=== PATIENT | female | born 1955 | race Caucasian/White ===

== ENCOUNTER 2016-12-04 17:51 | Emergency (ER) | payer OTHER ==
[~2016-12-04] VITALS: Ht 165.1 cm; Wt 96.2 kg
[2016-12-04] MEDS: IV NORMAL SALINE 1,000ML 1,000 ML IV ONE (18:45)
[2016-12-04] MEDS: HYDROmorphone PF 1 MG/ML DISP.SYRIN IV ONE (18:45)
[2016-12-04 18:46] LABS: BASO % 0 % (0-3); EOS % 0 % (0-3); HEMATOCRIT 35.3 % (36.0-47.0); HEMOGLOBIN 11.5 g/dL (12.0-15.5); LYMPH # 0.5 x10^3/uL (1.0-4.8); LYMPH % 6 % (24-48); MEAN CORPUSCULAR HEMOGLOBIN 27 pg (25-35); MEAN CORPUSCULAR HGB CONC 33 g/dL (31-37); MEAN CORPUSCULAR VOLUME 82 fL (79-100); MONO # 0.2 x10^3/uL (0.0-1.1); MONO % 3 % (0-9); NEUT # 6.5 x10^3uL (1.8-7.7); NEUT % 90 % (31-73); PLATELET COUNT 190 x10^3/uL (140-400); RED BLOOD COUNT 4.31 x10^6/uL (3.50-5.40); RED CELL DISTRIBUTION WIDTH 14.4 % (11.5-14.5); WHITE BLOOD COUNT 7.2 x10^3/uL (4.0-11.0)
[2016-12-04] MEDS ORDERED: ONDA8TAB12 PO ×2 (18:49→19:31)
--- NOTE | 2016-12-04 18:51 | PHYS DOC ---
Adult General Chief Complaint Chief Complaint: NAUSEA/VOMITING/DIARRHEA HPI HPI 61-year-old female with a history of hypertension, high cholesterol, chronic renal insufficiency, [facility] but signed out today because they refused to give her her chronic pain control of morphine which he takes daily. She was having narcotic withdrawal symptoms of nausea and vomiting so she left the hospital and came here for evaluation and to find someone that was willing to treat her pain. This chest pain shortness of breath. Patient denies abdominal pain. She states her diarrhea is improved but she still has some nausea and vomiting.No active vomiting on arrival in ED. Patient no acute distress alert communicative and appropriate. Review of Systems Review of Systems Constitutional: Denies fever or chills [] Eyes: Denies change in visual acuity, redness, or eye pain [] HENT: Denies nasal congestion or sore throat [] Respiratory: Denies cough or shortness of breath [] Cardiovascular: No additional information not addressed in HPI [] GI: Denies abdominal pain, nausea, vomiting, bloody stools or diarrhea [] : Denies dysuria or hematuria [] Musculoskeletal: Denies back pain or joint pain [] Integument: Denies rash or skin lesions [] Neurologic: Denies headache, focal weakness or sensory changes [] Endocrine: Denies polyuria or polydipsia [] Current Medications Current Medications Current Medications Medications (Trade) Dose Ordered Sig/Diana Start Time Stop Time Status Last Admin Dose Admin Sodium Chloride 1,000 ml @ 1,000 mls/hr 1X ONCE 12/04/16 18:45 12/04/16 19:44 UNV Physical Exam Physical Exam Alert well-appearing no acute distress. Patient had some nausea and was spitting in a bucket in triage however on arrival in the room she has no active nausea or evidence of vomiting. She is comfortable appearing and easily conversant , mildly dry mucous membranes, vital signs unremarkable Constitutional: Well developed, well nourished, no acute distress, non-toxic appearance. [] HENT: Normocephalic, atraumatic, bilateral external ears normal, , no oral exudates, nose normal. [] Eyes: PERRLA, EOMI, conjunctiva normal, no discharge. [] Neck: Normal range of motion, no tenderness, supple, no stridor. [] Cardiovascular:Heart rate regular rhythm, no murmur [] Lungs & Thorax: Bilateral breath sounds clear to auscultation [] Abdomen: Bowel sounds normal, soft, no tenderness, no masses, no pulsatile masses. [] Skin: Warm, dry, no erythema, no rash. [] Back: No tenderness, no CVA tenderness. [] Extremities: No tenderness, no cyanosis, no clubbing, ROM intact, no edema. [] Neurologic: Alert and oriented X 3, normal motor function, normal sensory function, no focal deficits noted. [] Psychologic: Affect normal, judgement normal, mood normal. [] Current Patient Data Lab Results Laboratory Tests Test 12/04/16 18:15 12/04/16 18:25 12/04/16 18:34 White Blood Count 7.2 x10^3/uL (4.0-11.0) Red Blood Count 4.31 x10^6/uL (3.50-5.40) Hemoglobin 11.5 g/dL (12.0-15.5) L Hematocrit 35.3 % (36.0-47.0) L Mean Corpuscular Volume 82 fL (79-100) Mean Corpuscular Hemoglobin 27 pg (25-35) Mean Corpuscular Hemoglobin Concent 33 g/dL (31-37) Red Cell Distribution Width 14.4 % (11.5-14.5) Platelet Count 190 x10^3/uL (140-400) Neutrophils (%) (Auto) 90 % (31-73) H Lymphocytes (%) (Auto) 6 % (24-48) L Monocytes (%) (Auto) 3 % (0-9) Eosinophils (%) (Auto) 0 % (0-3) Basophils (%) (Auto) 0 % (0-3) Neutrophils # (Auto) 6.5 x10^3uL (1.8-7.7) Lymphocytes # (Auto) 0.5 x10^3/uL (1.0-4.8) L Monocytes # (Auto) 0.2 x10^3/uL (0.0-1.1) Eosinophils # (Auto) 0.0 x10^3/uL (0.0-0.7) Basophils # (Auto) 0.0 x10^3/uL (0.0-0.2) Sodium Level 141 mmol/L (136-145) Potassium Level 4.0 mmol/L (3.5-5.1) Chloride Level 104 mmol/L (98-107) Carbon Dioxide Level 23 mmol/L (21-32) Anion Gap 14 (6-14) 19 mmol/L (6-14) H Blood Urea Nitrogen 16 mg/dL (7-20) Creatinine 1.3 mg/dL (0.6-1.0) H Estimated GFR (Cockcroft-Gault) 41.8 BUN/Creatinine Ratio 12 (6-20) Glucose Level 165 mg/dL (70-99) H 160 mg/dL (60-99) H Calcium Level 9.1 mg/dL (8.5-10.1) Total Bilirubin 0.5 mg/dL (0.2-1.0) Aspartate Amino Transferase (AST) 18 U/L (15-37) Alanine Aminotransferase (ALT) 20 U/L (14-59) Alkaline Phosphatase 109 U/L (46-116) Total Protein 7.1 g/dL (6.4-8.2) Albumin 3.3 g/dL (3.4-5.0) L Albumin/Globulin Ratio 0.9 (1.0-1.7) L Lipase 67 U/L (73-393) L Urine Collection Type Unknown Urine Color Yellow Urine Clarity Clear Urine pH 5.0 Urine Specific [place] 1.010 Urine Protein Neg (NEG-TRACE) Urine Glucose (UA) Neg mg/dL (NEG) Urine Ketones (Stick) 15 mg/dL (NEG) Urine Blood Small (NEG) Urine Nitrite Neg (NEG) Urine Bilirubin Neg (NEG) Urine Urobilinogen Dipstick 0.2 mg/dL (0.2 mg/dL) Urine Leukocyte Esterase Neg (NEG) Urine RBC Rare /HPF (0-2) Urine WBC Occ /HPF (0-4) Urine Squamous Epithelial Cells Occ /LPF Urine Bacteria 0 /HPF (0-FEW) POC Hemoglobin 11.9 gm/dL POC Hematocrit 35 % POC Sodium 141 mmol/L (135-145) POC Potassium 4.0 mmol/L (3.5-5.0) POC Chloride 106 mmol/L (98-110) POC Total CO2 20 mmol/L (23-32) L POC Blood Urea Nitrogen 16 mg/dL (8-26) POC Creatinine 0.9 mg/dL (0.5-1.4) POC Ionized Calcium (Carol) 1.12 mmol/L (1.13-1.32) L EKG EKG Normal sinus rhythm at 88 normal axis, no stemi Radiology/Procedures Radiology/Procedures [] Course & Med Decision Making Course & Med Decision Making Well-appearing patient with unremarkable vital signs complaining of narcotic withdrawal. No active vomiting. Benign abdomen. She has mildly dry mucous membranes but is otherwise well-appearing. Fluids initiated and labs pending to rule out significant electrolyte abnormality or need for admission. Dose of 1/2 mg Dilaudid administered. Discussed with patient if workup is unremarkable outpatient management is appropriate and she can assume her morphine prescription for chronic pain control at home and follow-up with her doctor tomorrow. If no indication for admission exists patient is comfortable with this plan, agrees with outpatient follow-up and strict return precautions will be given. At [address] Woo to follow results and dispo pt. Pertinent Labs and Imaging studies reviewed. (See chart for details) []patient pain and nausea improved. He is fluids are in vital signs been reviewed as well as laboratory work and symptoms. No renal insufficiency potassium is normal sodium is normal at this point in time is 7:27 PM patient Carrie to go home. She'll be given some pain medications to follow-up with her regular doctor she understands the possibility that she may be withdrawing from narcotic medications will follow up appropriately with the doctor try to ease herself off these medications in order to help with her withdrawal symptoms. Impression: Narcotic withdrawal, nausea and vomiting resolved dehydration improved disposition PCP follow-up next 12-24 hours if symptoms continue. Dragon Disclaimer Dragon Disclaimer This chart was dictated in whole or in part using Voice Recognition software in a busy, high-work load, and often noisy Emergency Department environment. It may contain unintended and wholly unrecognized errors or omissions. Departure Departure: Impression: Primary Impression: Narcotic withdrawal Additional Impression: Mild dehydration Disposition: HOME, SELF-CARE Condition: STABLE Referrals: JOANN BENITO APRN (PCP) Scripts Ondansetron (ZOFRAN ODT) 8 Mg Tab.rapdis 4 MG PO TID for 7 Days Prov: LORETA WHITLOCK MD 12/04/16 Clonidine Hcl (CLONIDINE HCL) 0.1 Mg Tablet 0.1 MG PO [id number] for 7 Days, #21 TAB Prov: LORETA WHITLOCK MD 12/04/16 Ondansetron (ZOFRAN ODT) 8 Mg Tab.rapdis 4 MG PO QID Y for NAUSEA, #20 Prov: REGIS MI MD 12/04/16 Problem Qualifiers REGIS MI MD Dec 04, 2016 18:51 LORETA WHITLOCK MD Dec 04, 2016 19:31
[2016-12-04 18:53] LABS: ALBUMIN 3.3 g/dL (3.4-5.0); ALBUMIN/GLOBULIN RATIO 0.9 (1.0-1.7); CALCIUM 9.1 mg/dL (8.5-10.1); CREATININE 1.3 mg/dL (0.6-1.0); GFR 41.8; TOTAL BILIRUBIN 0.5 mg/dL (0.2-1.0); TOTAL PROTEIN 7.1 g/dL (6.4-8.2)
[2016-12-04 18:54] LABS: HEMOGLOBIN ISTAT 11.9 gm/dL
[2016-12-04 19:03] LABS: BACTERIA,URINE 0 /HPF (0-FEW); BILIRUBIN,URINE NEG (NEG); CLARITY,URINE CLEAR; COLOR,URINE YELLOW; GLUCOSE,URINE NEG (NEG); NITRITE,URINE NEG (NEG); RBC,URINE RARE /HPF (0-2); SQUAMOUS EPITHELIAL CELL,UR OCC /LPF; UROBILINOGEN,URINE 0.2 mg/dL (0.2 mg/dL); WBC,URINE OCC /HPF (0-4)
--- NOTE | 2016-12-04 19:05 | EKG ---
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
[2016-12-04] MEDS ORDERED: ONDANSETRON PF 4 MG/2 ML VIAL. ONE (19:07)
[2016-12-04] MEDS ORDERED: CLON0.1T PO (19:31)
[2016-12-04 19:35] VITALS: BP 136/60
[2016-12-04] MEDS: ONDANSETRON 4MG ODT 4TABLET STARTPACK. PO ONE (19:45)
[2016-12-04] MEDS: ONDANSETRON PF 4 MG/2 ML VIAL. IV ONE (19:53)
== END 2016-12-04 19:45 | disposition home or self-care (01) ==
LOC: ER 17:51
DX: F11.23 Opioid dependence with withdrawal (principal); E86.0 Dehydration; I12.9 Hypertensive chronic kidney disease with stage 1 through stage 4 chronic kidney disease, or unspecified chronic kidney disease; E78.00 Pure hypercholesterolemia, unspecified; N19 Unspecified kidney failure
CPT/HCPCS: 36415; 80053; 81001; 83690; 85027; 93005; 96361; 96374; 96375; 99285; J1170; J2405; Q0162; 80047; J7030

== ENCOUNTER → 2016-12-20 | Outpatient (CLI) | payer OTHER ==
[2016-12-04 19:35] VITALS: BP 136/60
[~2016-12-20] MED LIST: CLON0.1T PO; ONDA8TAB12 PO
--- NOTE | 2016-12-20 17:39 | RAD ---
DATE: 12/20/2016 EXAM: DIGITAL DIAGNOSTIC BILATERAL, BREAST BILATERAL, BILATERAL BREAST ULTRASOUND HISTORY: Bilateral palpable abnormalities. COMPARISON: Mammogram 10/08/2015 This study was interpreted with the benefit of Computerized Aided Detection (CAD). The breast parenchyma shows scattered fibroglandular densities. Breast parenchyma level B. FINDINGS: Right breast: Palpable abnormalities are indicated in the upper outer right breast as well as the lower inner right breast, marked by metallic markers. In these regions, there are no corresponding areas of suspicious calcifications, masses or architectural distortion. Left breast: Palpable markers are identified in the upper inner left breast as well as the lower inner left breast. There are no corresponding areas of suspicious catheter stations, masses or architectural distortion. Sonographic imaging was performed in the areas of palpable abnormalities as indicated by the wrapper leaf inspector. Ultrasound examination was performed in the right breast at 12 o'clock, 7 cm from the nipple, in the right breast at 4 o'clock, 4 cm from the nipple, in the left breast at 2 o'clock, 10 cm from the nipple and in the left breast at 7 o'clock, 5 cm from the nipple. Scattered fibroglandular tissue noted within these areas. No suspicious masses or areas of architectural distortion are identified by ultrasound. IMPRESSION: Right breast: Palpable abnormalities in the right breast have no specific mammographic or sonographic correlate and likely represent scattered fibroglandular tissue. Please note a negative mammogram and ultrasound do not preclude the need for additional imaging should the patient's symptoms change. Left breast: Palpable abnormalities in the left breast and a suspicious mammographic or sonographic correlate and likely represent scattered fibroglandular tissue. BI-RADS CATEGORY: 2 BENIGN FINDING(S) RECOMMENDED FOLLOW-UP: 12M 12 MONTH FOLLOW-UP PQRS compliance statement: Patient information was entered into a reminder system with a target due date 12/20/2017 for the next mammogram. Mammography is a sensitive method for finding small breast cancers, but it does not detect them all and is not a substitute for careful clinical examination. A negative mammogram does not negate a clinically suspicious finding and should not result in delay in biopsying a clinically suspicious abnormality. "Our facility is accredited by the [employer] Mammography Program."
== END | disposition home or self-care (01) ==
LOC: MAMMO 09:23
PROVIDERS: ATTEND Nurse Practitioner
DX: N63 Unspecified lump in breast (principal)
CPT/HCPCS: 76641; G0204; 77066

== ENCOUNTER 2018-04-20 01:18 | Inpatient (IN) | payer OTHER ==
[~2018-04-20] VITALS: Ht 162.6 cm; Wt 90.7 kg
[2018-04-20] MEDS ORDERED: HALOPERIDOL LACT 5 MG/ML VIAL. ONE (02:02)
[2018-04-20] MEDS ORDERED: diphenhydrAMINE 50 MG/ML VIAL ONE (02:02)
[2018-04-20] MEDS ORDERED: ONDANSETRON PF 4 MG/2 ML VIAL. ONE (02:02)
--- NOTE | 2018-04-20 02:17 | PHYS DOC ---
Adult General Chief Complaint Chief Complaint vomiting HPI HPI This is 62 years old female was seen earlier today at the [facility] who presented with nausea vomiting diarrhea and abdominal pain she had blood work done and CT scan of the abdomen, chest x-ray all reported negative . patient with IV fluids and Zofran . stated that she spent 8 hours and at emergency department he felt very frustrated left and came to Upon arrival patient complaining of nausea vomiting and diarrhea she describes her diarrhea as watery loose stool no blood no black stool no urgency no frequency no hematuria she denies shortness of breath or chest pain Patient has been stated that she hasn't had narcotics in 48 hours because she gets vomiting and she is unable to give it down Review of Systems Review of Systems Constitutional: Denies fever or chills [] Eyes: Denies change in visual acuity, redness, or eye pain [] HENT: Denies nasal congestion or sore throat [] Respiratory: Denies cough or shortness of breath [] Cardiovascular: No additional information not addressed in HPI [] GI: + abdominal pain, nausea, vomiting, bloody stools or diarrhea [] : Denies dysuria or hematuria [] Musculoskeletal: Denies back pain or joint pain [] Integument: Denies rash or skin lesions [] Neurologic: Denies headache, focal weakness or sensory changes [] Endocrine: Denies polyuria or polydipsia [] All other systems were reviewed and found to be within normal limits, except as documented in this note. Current Medications Current Medications Current Medications Medications (Trade) Dose Ordered Sig/Diana Start Time Stop Time Status Last Admin Dose Admin Acetaminophen (Tylenol) 650 mg PRN Q4HRS PRN 04/20/18 04:15 04/21/18 04:14 Diphenhydramine HCl (Benadryl) 50 mg STK-MED ONCE 04/20/18 02:02 04/20/18 02:03 DC Haloperidol Lactate (Haldol) 5 mg STK-MED ONCE 04/20/18 02:02 04/20/18 02:03 DC Hydromorphone HCl (Dilaudid) 0.5 mg PRN Q2HR PRN 04/20/18 04:15 04/21/18 04:14 Ketorolac Tromethamine (Toradol 30mg Vial) 30 mg 1X ONCE 04/20/18 02:30 04/20/18 02:31 DC 04/20/18 02:28 30 MG Morphine Sulfate (Morphine 4mg Syringe) 4 mg 1X ONCE 04/20/18 03:00 04/20/18 03:01 DC 04/20/18 02:52 4 MG Ondansetron HCl (Zofran) 4 mg PRN Q4HRS PRN 04/20/18 04:15 04/21/18 04:14 Sodium Chloride 1,000 ml @ 150 mls/hr Q6H40M 04/20/18 05:00 04/21/18 04:59 Allergies Allergies Allergies Coded Allergies Type Severity Reaction Last Updated Verified No Known Drug Allergies 12/04/16 No Physical Exam Physical Exam Constitutional: Well developed, well nourished, no acute distress, non-toxic appearance. [] HENT: Normocephalic, atraumatic, bilateral external ears normal, oropharynx moist, no oral exudates, nose normal. [] Eyes: PERRLA, EOMI, conjunctiva normal, no discharge. [] Neck: Normal range of motion, no tenderness, supple, no stridor. [] Cardiovascular:Heart rate regular rhythm, no murmur [] Lungs & Thorax: Bilateral breath sounds clear to auscultation [] Abdomen: Bowel sounds normal, soft,+ tenderness, no masses, no pulsatile masses. [] Skin: Warm, dry, no erythema, no rash. [] Back: No tenderness, no CVA tenderness. [] Extremities: No tenderness, no cyanosis, no clubbing, ROM intact, no edema. [] Neurologic: Alert and oriented X 3, normal motor function, normal sensory function, no focal deficits noted. [] Psychologic: Affect normal, judgement normal, mood normal. [] Current Patient Data Vital Signs Vital Signs Date Time Temp Pulse Resp B/P (MAP) Pulse Ox O2 Delivery O2 Flow Rate FiO2 04/20/18 02:52 22 96 Room Air 04/20/18 01:51 98.9 107 Lab Results Laboratory Tests Test 04/20/18 02:15 White Blood Count 11.9 x10^3/uL (4.0-11.0) H Red Blood Count 5.38 x10^6/uL (3.50-5.40) Hemoglobin 14.1 g/dL (12.0-15.5) Hematocrit 43.2 % (36.0-47.0) Mean Corpuscular Volume 80 fL (79-100) Mean Corpuscular Hemoglobin 26 pg (25-35) Mean Corpuscular Hemoglobin Concent 33 g/dL (31-37) Red Cell Distribution Width 16.3 % (11.5-14.5) H Platelet Count 295 x10^3/uL (140-400) Sodium Level 139 mmol/L (136-145) Potassium Level 5.0 mmol/L (3.5-5.1) Chloride Level 103 mmol/L (98-107) Carbon Dioxide Level 18 mmol/L (21-32) L Anion Gap 18 (6-14) H Blood Urea Nitrogen 14 mg/dL (7-20) Creatinine 1.0 mg/dL (0.6-1.0) Estimated GFR (Cockcroft-Gault) 56.4 BUN/Creatinine Ratio 14 (6-20) Glucose Level 189 mg/dL (70-99) H Lactic Acid Level 3.1 mmol/L (0.4-2.0) H Calcium Level 9.0 mg/dL (8.5-10.1) Total Bilirubin 0.6 mg/dL (0.2-1.0) Aspartate Amino Transferase (AST) 33 U/L (15-37) Alanine Aminotransferase (ALT) 25 U/L (14-59) Alkaline Phosphatase 102 U/L (46-116) Total Protein 7.5 g/dL (6.4-8.2) Albumin 3.6 g/dL (3.4-5.0) Albumin/Globulin Ratio 0.9 (1.0-1.7) L Lipase 54 U/L (73-393) L EKG EKG [] Radiology/Procedures Radiology/Procedures [] Impressions: CT scan of the abdomen and pelvis done at the [facility] reported negative Chest x-ray reported negative Course & Med Decision Making Course & Med Decision Making Pertinent Labs and Imaging studies reviewed. (See chart for details) [] Final Impression Final Impression Case discussed with hospitalist on-call Dr. Lewis Patient to be admitted for observation[] Problems: (1) Vomiting Qualifiers: Qualified Codes: R11.2 - Nausea with vomiting, unspecified (2) Gastroenteritis Dragon Disclaimer Dragon Disclaimer This electronic medical record was generated, in whole or in part, using a voice recognition dictation system. JONY MARTINEZ MD Apr 20, 2018 02:17
[2018-04-20 02:29] LABS: HEMATOCRIT 43.2 % (36.0-47.0); HEMOGLOBIN 14.1 g/dL (12.0-15.5); RED BLOOD COUNT 5.38 x10^6/uL (3.50-5.40); RED CELL DISTRIBUTION WIDTH 16.3 % (11.5-14.5); WHITE BLOOD COUNT 11.9 x10^3/uL (4.0-11.0)
[2018-04-20] MEDS ORDERED: ONDANSETRON PF 4 MG/2 ML VIAL. IV ONE (02:30)
[2018-04-20] MEDS ORDERED: diphenhydrAMINE 50 MG/ML VIAL IVP ONE (02:30)
[2018-04-20] MEDS ORDERED: KETOROLAC 30 MG/ML VIAL. IV ONE (02:30)
[2018-04-20] MEDS ORDERED: IV NORMAL SALINE 1,000ML 1,000 ML IV ONE ×2 (02:30)
[2018-04-20] MEDS ORDERED: HALOPERIDOL LACT 5 MG/ML VIAL. IVP ONE (02:30)
[2018-04-20 02:45] LABS: ALBUMIN 3.6 g/dL (3.4-5.0); ALBUMIN/GLOBULIN RATIO 0.9 (1.0-1.7); GFR 56.4; TOTAL BILIRUBIN 0.6 mg/dL (0.2-1.0); TOTAL PROTEIN 7.5 g/dL (6.4-8.2)
[2018-04-20] MEDS ORDERED: MORPHINE SULFATE 4 MG/ML DISP.SYRIN. IV ONE (03:00)
[2018-04-20] MEDS ORDERED: HYDROmorphone PF 1 MG/ML DISP.SYRIN IV PRN (04:15)
[2018-04-20] MEDS ORDERED: ACETAMINOPHEN 325 MG TABLET PO PRN (04:15)
[2018-04-20] MEDS: IV NORMAL SALINE 1,000ML 1,000 ML IV SCH ×3 (04:49→20:17)
--- NOTE | 2018-04-20 04:59 | EKG ---
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
[2018-04-20] MEDS ORDERED: PROCHLORPERAZINE 10 MG/2 ML VIAL. IV ONE (05:00)
[2018-04-20] MEDS ORDERED: LIDO:MAALOX 1:1 20 ML SINGLE DOSE. PO ONE (05:00)
[2018-04-20 05:53] LABS: CLARITY,URINE CLEAR; COLOR,URINE YELLOW
[2018-04-20 05:54] LABS: BACTERIA,URINE 0 /HPF (0-FEW); BILIRUBIN,URINE NEG (NEG); GLUCOSE,URINE NEG (NEG); NITRITE,URINE NEG (NEG); RBC,URINE OCC /HPF (0-2); SQUAMOUS EPITHELIAL CELL,UR OCC /LPF; UROBILINOGEN,URINE 0.2 mg/dL (0.2 mg/dL); WBC,URINE RARE /HPF (0-4)
[2018-04-20 06:00] VITALS: BP 175/95
[2018-04-20] MEDS: ONDANSETRON PF 4 MG/2 ML VIAL. IV PRN ×2 (06:04→09:03)
[2018-04-20] MEDS ORDERED: FURO40TA4 PO (06:37)
[2018-04-20] MEDS ORDERED: FLUO40CA2 PO (06:37)
[2018-04-20] MEDS ORDERED: FERR325T14 PO (06:37)
[2018-04-20] MEDS ORDERED: AMLO5TAB7 PO (06:37)
[2018-04-20] MEDS ORDERED: LEVO75TA5 PO (06:37)
[2018-04-20] MEDS ORDERED: KETO5DRO4 EACHEYE (06:37)
[2018-04-20] MEDS ORDERED: FLUT16SP21 NS (06:37)
[2018-04-20] MEDS ORDERED: CLON0.1T PO (06:37)
[2018-04-20] MEDS ORDERED: OXYB5TAB7 PO (06:37)
[2018-04-20] MEDS ORDERED: MIRT30TA PO (06:37)
[2018-04-20] MEDS ORDERED: ASPI-612 PO (06:37)
[2018-04-20] MEDS ORDERED: SUMA50TA3 PO (06:37)
[2018-04-20] MEDS ORDERED: BUDE10.2 IH (06:37)
[2018-04-20] MEDS ORDERED: LACT1CAP21 PO (06:37)
[2018-04-20] MEDS ORDERED: MORP30TA PO (06:37)
[2018-04-20] MEDS ORDERED: FOLI1TAB16 PO (06:37)
[2018-04-20] MEDS ORDERED: ESTR0.62 PO (06:37)
[2018-04-20] MEDS ORDERED: CHOL500016 PO (06:41)
[2018-04-20] MEDS ORDERED: PANT40TA5 PO (06:41)
[2018-04-20] MEDS ORDERED: GABA-586 PO (06:41)
[2018-04-20] MEDS ORDERED: SIMV20TA3 PO (06:41)
[2018-04-20] MEDS ORDERED: ALBU8.5H8 INH (07:36)
[2018-04-20] MEDS ORDERED: PHEN1SUP75 RC (07:36)
[2018-04-20 10:41] VITALS: BP 187/74
[2018-04-20 14:37] LABS: BARBITURATES NEG (NEG); BENZODIAZEPINES NEG (NEG); CANNABINOIDS POS (NEG); COCAINE NEG (NEG); METHADONE NEG (NEG); OPIATES POS (NEG); PHENCYCLIDINE NEG (NEG)
[2018-04-20 14:38] LABS: AMPHETAMINE/METHAMPHETAMINE NEG (NEG)
[2018-04-20 14:48] VITALS: BP 184/93
--- NOTE | 2018-04-20 16:02 | PDOC1 ---
History and Physical Date of Admission: Date of Admission: 04/20/18 Chief Complaint: Chief Complain: n/v/d Source: Source: Caregiver, Chart review, Patient HPI: HPI: 62/F typically follows [facility] to [facility] ED c/o n/v/d x 2 days. States she was seen at [facility] earlier today underwent lab/CXR/CT Abd/pelvis exam no acute findings. She was reportedly treated with IV fluids and zofran symptomatically however became angry and impatient so they left and came here. Patient denies travel, known sick contacts, bad food exposure, and recent antibiotics or immunosuppression. Was apparently complaining of severe pains in ED (pt has h/o opiate dependence and withdrawal) stated she couldn't keep any home pain meds down for past two days, including pain meds. Her [facility] ED workup was reportedly unremarkable with WBC 11.9, lactic acid initially 3.1 improved to 1.4 with hydration, lipase/LFTs unremarkable. Renal function did not indicate hypovolemia/FABRIZIO as would be expected from relayed history, UDS + opiates and cannabinoids. I find her sitting up in bed SO at bedside. She has an emesis basin at bedside table she reports she has continued to vomit into, on my evaluation scant saliva noted. She denies fever/chills/CP/SOB/focal abdominal pain/MONSALVE/focal neurodefs. Her appetite is preserved, she is s/p ev/hysterectomy Past Medical History: Cardiovascular: HTN, hyperipidemia Musculoskeletal: low back pain (Chronic), Osteoarthritis Renal/: Chronic renal insuff Past Surgical History: PSH: Appy, Ev, lumbar Social History: Alcohol: none Drugs: None Allergies: Allergies: Coded Allergies: No Known Drug Allergies (Unverified , 12/04/16) Current Medications: Current Medications: Current Medications Medications (Trade) Dose Ordered Sig/Diana Start Time Stop Time Status Last Admin Dose Admin Acetaminophen (Tylenol) 650 mg PRN Q4HRS PRN 04/20/18 04:15 04/21/18 04:14 Diphenhydramine HCl (Benadryl) 50 mg STK-MED ONCE 04/20/18 02:02 04/20/18 02:03 DC Haloperidol Lactate (Haldol) 5 mg STK-MED ONCE 04/20/18 02:02 04/20/18 02:03 DC Hydromorphone HCl (Dilaudid) 0.5 mg PRN Q2HR PRN 04/20/18 04:15 04/21/18 04:14 04/20/18 04:49 0.5 MG Ketorolac Tromethamine (Toradol 30mg Vial) 30 mg 1X ONCE 04/20/18 02:30 04/20/18 02:31 DC 04/20/18 02:28 30 MG Morphine Sulfate (Morphine 4mg Syringe) 4 mg 1X ONCE 04/20/18 03:00 04/20/18 03:01 DC 04/20/18 02:52 4 MG Multi-Ingredient Mouthwash/Gargle (Gi Cocktail) 20 ml 1X ONCE 04/20/18 05:00 04/20/18 05:01 DC 04/20/18 05:19 20 ML Ondansetron HCl (Zofran) 4 mg PRN Q4HRS PRN 04/20/18 04:15 04/21/18 04:14 04/20/18 09:03 4 MG Prochlorperazine Edisylate (Compazine) 10 mg 1X ONCE 04/20/18 05:00 04/20/18 05:01 DC 04/20/18 04:35 10 MG Sodium Chloride 1,000 ml @ 150 mls/hr Q6H40M 04/20/18 05:00 04/21/18 04:59 04/20/18 09:03 150 MLS/HR ROS: ROS: Constitutional: No fever or chills Eyes: No eye pain or blurred vision Skin: No rash or itching Cardiovascular: No chest pain, syncope, palpitations, dyspnea on exertion, or edema Respiratory: No cough or difficulty breathing Gastrointestinal: see HPI Neurologic: No headaches or focal neurologic deficits Endocrine: No heat or cold intolerance Genitourinary: No incontinence or hematuria Musculoskeletal: No joint pain or swelling Lymphatics: No enlarged lymph nodes Psychiatric: No anxiety or depression PE: PE: Gen.: Alert, pleasant, no apparent distress HEENT: Normocephalic atraumatic, PERRLA EOMI, no scleral icterus, oral mucosa pink and moist Neck: Supple, no lymphadenopathy, nontender Cardiovascular: Normal S1 and S2 no murmurs Pulmonary: Lungs are clear bilaterally with good air movement no respiratory distress Abdomen: Soft nontender non-distended, bowel sounds present no masses Extremities: No clubbing, cyanosis or edema Neuro: Alert and oriented 3, cranial nerves II through XII grossly intact, no lateralizing neuro deficits Skin: Warm, dry Vitals: Vitals: Vital Signs Date Time Temp Pulse Resp B/P (MAP) Pulse Ox O2 Delivery O2 Flow Rate FiO2 04/20/18 14:48 98.1 104 20 184/93 (123) 94 Room Air Labs: Labs: Laboratory Tests Test 04/20/18 02:15 04/20/18 05:25 04/20/18 06:15 04/20/18 07:26 White Blood Count 11.9 x10^3/uL (4.0-11.0) Red Blood Count 5.38 x10^6/uL (3.50-5.40) Hemoglobin 14.1 g/dL (12.0-15.5) Hematocrit 43.2 % (36.0-47.0) Mean Corpuscular Volume 80 fL (79-100) Mean Corpuscular Hemoglobin 26 pg (25-35) Mean Corpuscular Hemoglobin Concent 33 g/dL (31-37) Red Cell Distribution Width 16.3 % (11.5-14.5) Platelet Count 295 x10^3/uL (140-400) Sodium Level 139 mmol/L (136-145) Potassium Level 5.0 mmol/L (3.5-5.1) Chloride Level 103 mmol/L (98-107) Carbon Dioxide Level 18 mmol/L (21-32) Anion Gap 18 (6-14) Blood Urea Nitrogen 14 mg/dL (7-20) Creatinine 1.0 mg/dL (0.6-1.0) Estimated GFR (Cockcroft-Gault) 56.4 BUN/Creatinine Ratio 14 (6-20) Glucose Level 189 mg/dL (70-99) Lactic Acid Level 3.1 mmol/L (0.4-2.0) 1.4 mmol/L (0.4-2.0) Calcium Level 9.0 mg/dL (8.5-10.1) Total Bilirubin 0.6 mg/dL (0.2-1.0) Aspartate Amino Transf (AST/SGOT) 33 U/L (15-37) Alanine Aminotransferase (ALT/SGPT) 25 U/L (14-59) Alkaline Phosphatase 102 U/L (46-116) Total Protein 7.5 g/dL (6.4-8.2) Albumin 3.6 g/dL (3.4-5.0) Albumin/Globulin Ratio 0.9 (1.0-1.7) Lipase 54 U/L (73-393) Urine Opiates Screen Pos (NEG) Urine Methadone Screen Neg (NEG) Urine Barbiturates Neg (NEG) Urine Phencyclidine Screen Neg (NEG) Urine Amphetamine/Methamphetamine Neg (NEG) Urine Benzodiazepines Screen Neg (NEG) Urine Cocaine Screen Neg (NEG) Urine Cannabinoids Screen Pos (NEG) Urine Ethyl Alcohol Neg (NEG) Urine Collection Type Unknown Urine Color Yellow Urine Clarity Clear Urine pH 6.5 Urine Specific [place] 1.015 Urine Protein Neg (NEG-TRACE) Urine Glucose (UA) Neg mg/dL (NEG) Urine Ketones (Stick) 15 mg/dL (NEG) Urine Blood Mod (NEG) Urine Nitrite Neg (NEG) Urine Bilirubin Neg (NEG) Urine Urobilinogen Dipstick 0.2 mg/dL (0.2 mg/dL) Urine Leukocyte Esterase Neg (NEG) Urine RBC Occ /HPF (0-2) Urine WBC Rare /HPF (0-4) Urine Squamous Epithelial Cells Occ /LPF Urine Bacteria 0 /HPF (0-FEW) Glucose (Fingerstick) 148 mg/dL (70-99) Test 04/20/18 11:17 04/20/18 15:40 Glucose (Fingerstick) 125 mg/dL (70-99) Ethyl Alcohol Level < 10 mg/dL (0-10) VTE Prophylaxis: VTE Prophylaxis Devices: No VTE Pharmacological Prophylaxi: No Assessment/Plan: A/P: Abdominal Pain with reported N/V/D: CT negative, colitis or viral process vs cannabinoid induced cyclic vomitting syndrome Metabolic Acidosis: resolved with hydration in ED Opiate dependence with history of withdrawal Will request/await records from [facility] earlier today Continue hydration, antiemetics, pain control. MARK MAGANA DO Apr 20, 2018 16:02
[2018-04-20] MEDS ORDERED: ACETAMINOPHEN 325 MG SUPP.RECT PR PRN (18:15)
[2018-04-20] MEDS ORDERED: ACETAMINOPHEN 650 MG SUPP.RECT. PR PRN (18:15)
[2018-04-20 18:23] VITALS: BP 165/73
[2018-04-20 18:54] LABS: INFLUENZA A PATIENT NEGATIVE (NEGATIVE); INFLUENZA B PATIENT NEGATIVE (NEGATIVE)
--- NOTE | 2018-04-20 18:58 | RAD ---
CHEST PA LATERAL History: Shortness of air, fever Comparison: None. Findings: 2 views of the chest are submitted. There is no pleural fluid or pneumothorax. Heart size is upper limits of normal. There is mild patchy airspace opacity at the lung bases greater on the left Impression: 1. There is mild patchy airspace opacity at the lung bases greater on the left, possibly mild infiltrate. Electronically signed by: Horacio Erazo MD (04/20/2018 6:54 PM) [id number]
[2018-04-20 19:45] LABS: BASO # 0.1 x10^3/uL (0.0-0.2); BASO % 1 % (0-3); EOS % 0 % (0-3); HEMATOCRIT 40.2 % (36.0-47.0); HEMOGLOBIN 12.9 g/dL (12.0-15.5); LYMPH # 1.2 x10^3/uL (1.0-4.8); LYMPH % 10 % (24-48); MEAN CORPUSCULAR HEMOGLOBIN 26 pg (25-35); MEAN CORPUSCULAR HGB CONC 32 g/dL (31-37); MEAN CORPUSCULAR VOLUME 80 fL (79-100); MONO # 0.7 x10^3/uL (0.0-1.1); MONO % 6 % (0-9); NEUT # 9.4 x10^3uL (1.8-7.7); NEUT % 83 % (31-73); PLATELET COUNT 268 x10^3/uL (140-400); RED BLOOD COUNT 5.03 x10^6/uL (3.50-5.40); RED CELL DISTRIBUTION WIDTH 16.2 % (11.5-14.5); WHITE BLOOD COUNT 11.3 x10^3/uL (4.0-11.0)
[2018-04-20] MEDS: CIPROFLOXACIN 400MG PREMIX 200 ML IV SCH (21:09)
[2018-04-20 23:01] VITALS: BP 166/77
[2018-04-21] MEDS ORDERED: ALBUTEROL SULFATE 8GM INHALER. INH PRN (00:45)
[2018-04-21] MEDS: ONDANSETRON PF 4 MG/2 ML VIAL. IV PRN (00:45)
[2018-04-21] MEDS: IV NORMAL SALINE 1,000ML 1,000 ML IV SCH (01:00)
[2018-04-21] MEDS ORDERED: ALBUTEROL SULFATE 2.5 MG/3 ML NEBU. NEB PRN (01:00)
[2018-04-21] MEDS: oxyCODONE/APAP 7.5/325 1 TAB TABLET PO PRN ×2 (05:32→22:16)
[2018-04-21 05:39] VITALS: BP 179/65
[2018-04-21 06:29] LABS: BASO % 0 % (0-3); EOS % 0 % (0-3); HEMATOCRIT 41.3 % (36.0-47.0); HEMOGLOBIN 13.7 g/dL (12.0-15.5); LYMPH # 1.4 x10^3/uL (1.0-4.8); LYMPH % 13 % (24-48); MEAN CORPUSCULAR HEMOGLOBIN 26 pg (25-35); MEAN CORPUSCULAR HGB CONC 33 g/dL (31-37); MEAN CORPUSCULAR VOLUME 80 fL (79-100); MONO # 0.7 x10^3/uL (0.0-1.1); MONO % 7 % (0-9); NEUT # 8.7 x10^3uL (1.8-7.7); NEUT % 80 % (31-73); PLATELET COUNT 263 x10^3/uL (140-400); RED BLOOD COUNT 5.19 x10^6/uL (3.50-5.40); RED CELL DISTRIBUTION WIDTH 16.2 % (11.5-14.5); WHITE BLOOD COUNT 10.9 x10^3/uL (4.0-11.0)
[2018-04-21 06:33] LABS: ALBUMIN 3.7 g/dL (3.4-5.0); CALCIUM 8.8 mg/dL (8.5-10.1); CREATININE 1.1 mg/dL (0.6-1.0); GFR 50.5; TOTAL BILIRUBIN 0.5 mg/dL (0.2-1.0); TOTAL PROTEIN 7.4 g/dL (6.4-8.2)
[2018-04-21] MEDS: LACTOBACILLUS RHAMNOSUS GG 1 CAPSULE. PO SCH ×3 (09:00→21:39)
[2018-04-21] MEDS: CIPROFLOXACIN 400MG PREMIX 200 ML IV SCH ×2 (09:14→21:40)
[2018-04-21 11:40] VITALS: BP 192/79
[2018-04-21] MEDS ORDERED: ONDANSETRON ODT 4 MG TAB.RAPDIS PO PRN (13:30)
[2018-04-21] MEDS: POTASSIUM CHLORIDE 10MEQ 100 ML IV SCH ×5 (13:34→17:31)
[2018-04-21] MEDS ORDERED: PROMETHAZINE 25 MG SUPP.RECT. PR PRN (14:00)
[2018-04-21] MEDS ORDERED: IOHEXOL 300 MG/ML 75 ML VIAL. IV ONE (14:15)
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
[2018-04-21 15:48] VITALS: BP 191/82
--- NOTE | 2018-04-21 16:04 | RAD ---
CT of the abdomen and pelvis with contrast, 04/21/2018: HISTORY: Fever, shortness of breath Multidetector CT imaging was performed following an IV bolus injection of iodinated contrast material. No oral contrast material was administered for this study. Some of the lower abdominal and pelvic images are degraded by patient motion artifact. There is mild streaky atelectasis and/or scarring posteriorly in the lung bases. The gallbladder is surgically absent. There is no evidence of a hepatic mass or bile duct dilatation. There is a suggestion of a hepatic steatosis. The pancreas is unremarkable. The spleen is of normal size. No renal or adrenal abnormality is detected. Moderate aortic calcific plaquing is present. No abdominal or pelvic adenopathy is seen. The uterus is surgically absent. The colon is not well distended. There does appear to be mild mural thickening in the distal sigmoid. Radiopacities related to the cecum probably represents surgical sutures from a previous appendectomy. The small bowel loops are unremarkable. There is a suggestion of a small hiatal hernia. No free fluid or free air is evident in the abdomen or pelvis. There has been a previous lower lumbar laminectomy and anterior spinal fusion with instrumentation at what appears to be the L4-5 level. L5 is partially sacralized. IMPRESSION: 1. Mild distal sigmoid mural thickening compatible with nonspecific colitis. 2. Small hiatal hernia. 3. Probable hepatic steatosis. PQRS Compliance Statement: One or more of the following individualized dose reduction techniques were utilized for this examination: 1. Automated exposure control 2. Adjustment of the mA and/or kV according to patient size 3. Use of iterative reconstruction technique Electronically signed by: Brian Norris MD (04/21/2018 4:01 PM) [facility]
[2018-04-21 19:30] VITALS: BP 186/72
[2018-04-21] MEDS ORDERED: IV NORMAL SALINE 1,000ML 1,000 ML IV PRN (19:45)
[2018-04-21] MEDS: amLODIPine BESYLATE 5 MG TABLET PO SCH (19:47)
[2018-04-21 22:10] LABS: CALCIUM 8.6 mg/dL (8.5-10.1); GFR 56.4; POTASSIUM 3.2 mmol/L (3.5-5.1)
[2018-04-21 23:48] VITALS: BP 171/97
[2018-04-22] MEDS: oxyCODONE/APAP 7.5/325 1 TAB TABLET PO PRN (05:07)
[2018-04-22 05:30] VITALS: BP 184/80
[2018-04-22 06:27] LABS: BGAS PH 7.43 (7.35-7.45)
[2018-04-22 06:43] LABS: ALBUMIN/GLOBULIN RATIO 1.2 (1.0-1.7); CALCIUM 9.2 mg/dL (8.5-10.1); GFR 56.4; POTASSIUM 3.3 mmol/L (3.5-5.1); TOTAL BILIRUBIN 0.6 mg/dL (0.2-1.0); TOTAL PROTEIN 7.3 g/dL (6.4-8.2)
[2018-04-22] MEDS ORDERED: PANTOPRAZOLE IV 40 MG VIAL. IVP SCH (07:30)
[2018-04-22] MEDS ORDERED: IOHEXOL 300 MG/ML 75 ML VIAL. IV ONE (08:00)
[2018-04-22] MEDS ORDERED: NITROGLYCERIN SUBLINGUAL 0.4 MG BOTTLE OF 25. SL PRN (08:15)
[2018-04-22] MEDS ORDERED: ASPIRIN 81 MG TAB.CHEW PO ONE (08:30)
[2018-04-22] MEDS: LACTOBACILLUS RHAMNOSUS GG 1 CAPSULE. PO SCH (08:48)
[2018-04-22] MEDS: amLODIPine BESYLATE 5 MG TABLET PO SCH (08:48)
[2018-04-22] MEDS: CIPROFLOXACIN 400MG PREMIX 200 ML IV SCH (08:49)
--- NOTE | 2018-04-22 11:33 | RAD ---
CT arteriogram of the chest. HISTORY: Short of breath, tachypnea CT arteriogram of the chest was done using 70 mL Omnipaque 300 contrast. Sagittal and coronal MIP images were reconstructed. Thyroid is homogeneous. There is no mediastinal adenopathy or pleural effusion. There is fatty change in the liver. Visualized portions of the liver and spleen are otherwise unremarkable. Adrenal glands are normal. There is an accessory spleen. Upper poles of the kidneys are unremarkable. There are changes of mild chronic obstructive pulmonary disease and emphysema. There is a 3 mm calcified pulmonary nodule on image #39 in the lateral right lung. There is linear scarring or atelectasis in both lung bases. There are no other confluent infiltrates. This study is negative for evidence of a pulmonary embolus. IMPRESSION: 1. Negative for pulmonary embolus. 2. Mild atelectasis in both lower lobes. 3. Mild COPD. 4. Small lung nodule, Fleischner Society guidelines would recommend an optional one-year follow-up for high risk individual's. PQRS Compliance Statement: One or more of the following individualized dose reduction techniques were utilized for this examination: 1. Automated exposure control 2. Adjustment of the mA and/or kV according to patient size 3. Use of iterative reconstruction technique Electronically signed by: Riley Lemus MD (04/22/2018 11:29 AM) [facility]
[2018-04-22 12:02] VITALS: BP 190/81
--- NOTE | 2018-04-22 14:02 | PDOC2 ---
CONSULT Date of Admission DATE: 04/22/18 TIME: 13:56 Reason for Consult: chest pressure Referring Physician: Dr. Arroyo Chief Complaint abdominal pain Source: Patient Problem List The patient is a 62-year-old female who was originally seen at the [place] for episodes of nausea and vomiting over several days. She is then came to the [facility] emergency room with similar symptoms. She is been worked up for probable gastroenteritis. She is feeling somewhat better. However yesterday she reports some episodes of chest pressure. Workup has included troponins of 0.[address] scan of the chest was negative for a pulmonary embolism but did show mild atelectasis. Original EKG showed a sinus rhythm with mild nonspecific ST-T wave changes and a new EKG is pending. The patient this morning reports feeling better. Her pain has resolved. She denies any history of coronary disease, congestive heart failure or cardiac arrhythmias. History of Present Illness As above. Cardiovascular: HTN, hyperipidemia Pulmonary: COPD Musculoskeletal: low back pain (Chronic), Osteoarthritis Renal/: Chronic renal insuff Past Surgical History: Cholecystectomy, Hysterectomy Family History: Heart Disease Drugs: Other (Past use of opioid pain medications) Current Medications Current Medications Sodium Chloride 1,000 ml @ 1,000 mls/hr 1X ONCE IV Last administered on 02:20; Start 04/20/18 at 02:30; Stop 04/20/18 at 03:29; Status DC Sodium Chloride 1,000 ml @ 1,000 mls/hr 1X ONCE IV Last administered on at 02:21; Start 04/20/18 at 02:30; Stop 04/20/18 at 03:29; Status DC Haloperidol Lactate (Haldol) 2 mg 1X ONCE IVP Last administered on 04/20/18 02:22; Start 04/20/18 at 02:30; Stop 04/20/18 at 02:31; Status DC Diphenhydramine HCl (Benadryl) 25 mg 1X ONCE IVP Last administered on at 02:22; Start 04/20/18 at 02:30; Stop 04/20/18 at 02:31; Status DC Ondansetron HCl (Zofran) 4 mg 1X ONCE IV Last administered on 04/20/18at 02:20 ; Start 04/20/18 at 02:30; Stop 04/20/18 at 02:31; Status DC Ketorolac Tromethamine (Toradol 30mg Vial) 30 mg 1X ONCE IV Last administered on 04/20/18at 02:28; Start 04/20/18 at 02:30; Stop 04/20/18 at 02:31; Status DC Diphenhydramine HCl (Benadryl) 50 mg STK-MED ONCE .ROUTE ; Start 04/20/18 at 02: 02; Stop 04/20/18 at 02:03; Status DC Ondansetron HCl (Zofran) 4 mg STK-MED ONCE .ROUTE ; Start 04/20/18 at 02:02; Stop 04/20/18 at 02:03; Status DC Haloperidol Lactate (Haldol) 5 mg STK-MED ONCE .ROUTE ; Start 04/20/18 at 02:02 ; Stop 04/20/18 at 02:03; Status DC Morphine Sulfate (Morphine 4mg Syringe) 4 mg 1X ONCE IV Last administered on 04/20/18at 02:52; Start 04/20/18 at 03:00; Stop 04/20/18 at 03:01; Status DC Ondansetron HCl (Zofran) 4 mg PRN Q4HRS PRN IV NAUSEA/VOMITING Last administered on 04/21/18at 00:45; Start 04/20/18 at 04:15; Stop 04/21/18 at 04:14 ; Status DC Sodium Chloride 1,000 ml @ 150 mls/hr Q6H40M IV Last administered on at 20:17; Start 04/20/18 at 05:00; Stop 04/21/18 at 05:00; Status DC Acetaminophen (Tylenol) 650 mg PRN Q4HRS PRN PO FEVER; Start 04/20/18 at 04:15 ; Stop 04/21/18 at 04:14; Status DC Hydromorphone HCl (Dilaudid) 0.5 mg PRN Q2HR PRN IV PAIN Last administered on 04/20/18at 04:49; Start 04/20/18 at 04:15; Stop 04/20/18 at 16:02; Status DC Prochlorperazine Edisylate (Compazine) 10 mg 1X ONCE IV Last administered on 11/8/18at 04:35; Start 04/20/18 at 05:00; Stop 04/20/18 at 05:01; Status DC Multi-Ingredient Mouthwash/Gargle (Gi Cocktail) 20 ml 1X ONCE PO Last administered on 04/20/18 05:19; Start 04/20/18 at 05:00; Stop 04/20/18 at 05:01 ; Status DC Oxycodone/ Acetaminophen (Percocet 7.5/ 325) 1 tab PRN Q6HRS PRN PO PAIN Last administered on 04/22/18 05:07; Start 04/20/18 at 16:00 Ciprofloxacin Lactate 200 ml @ 200 mls/hr Q12HR IV Last administered on 08:49; Start 04/20/18 at 21:00 Acetaminophen (Tylenol Supp) 325 mg PRN Q6HRS PRN [place] PAIN / TEMP Last administered on 04/20/18 20:18; Start 04/20/18 at 18:15 Acetaminophen (Tylenol Supp) 650 mg PRN Q6HRS PRN [place] PAIN / TEMP Last administered on 04/20/18 20:18; Start 04/20/18 at 18:15 Albuterol Sulfate (Ventolin Hfa Inhaler) 2 puff PRN QID PRN INH SHORTNESS OF BREATH; Start 04/21/18 at 00:45; Status UNV Albuterol Sulfate (Ventolin) 2.5 mg PRN Q6HRS PRN NEB SHORTNESS OF BREATH; Start 04/21/18 at 01:00 Lactobacillus Rhamnosus (Culturelle) 1 cap BID PO Last administered on at 08:48; Start 04/21/18 at 09:00 Potassium Chloride 100 ml @ 100 mls/hr Q1H IV Last administered on 04/21/18 17:31; Start 04/21/18 at 13:30; Stop 04/21/18 at 17:29; Status DC Ondansetron HCl (Zofran Odt) 4 mg PRN Q8HRS PRN PO NAUSEA/VOMITING Last administered on 04/21/18 13:34; Start 04/21/18 at 13:30 Fentanyl Citrate (Fentanyl 2ml Vial) 50 mcg PRN Q2HR PRN IV PAIN Last administered on 04/22/18at 11:29; Start 04/21/18 at 14:00 Promethazine HCl (Phenergan Supp) 25 mg PRN Q6HRS PRN [place] NAUSEA/VOMITING Last administered on 04/21/18at 17:35; Start 04/21/18 at 14:00 Iohexol (Omnipaque 300 Mg/ml) 75 ml 1X ONCE IV Last administered on 04/21/18at 15:14; Start 04/21/18 at 14:15; Stop 04/21/18 at 14:16; Status DC Amlodipine Besylate (Norvasc) 5 mg DAILY PO Last administered on 04/22/18at 08: 48; Start 04/21/18 at 19:30 Sodium Chloride 1,000 ml @ 150 mls/hr Q6H40M PRN IV SEE I/O RECORD; Start 04/21 at 19:45 Metronidazole 100 ml @ 100 mls/hr Q12HR IV Last administered on 04/22/18at 08: 49; Start 04/21/18 at 22:00 Pantoprazole Sodium (Protonix Vial) 40 mg DAILYAC IVP Last administered on 03/30at 08:48; Start 04/22/18 at 07:30 Iohexol (Omnipaque 300 Mg/ml) 75 ml 1X ONCE IV Last administered on at 10:55; Start 04/22/18 at 08:00; Stop 04/22/18 at 08:16; Status DC Aspirin (Children'S Aspirin) 324 mg 1X ONCE PO Last administered on at 08:48; Start 04/22/18 at 08:30; Stop 04/22/18 at 08:31; Status DC Nitroglycerin (Nitrostat) 0.4 mg PRN Q5MIN PRN SL CP RATING > 1/10; Start 03/30 at 08:15; Stop 04/23/18 at 08:14 Active Scripts Active Zofran Odt (Ondansetron) 8 Mg Tab.rapdis 4 Mg PO TID 7 Days Clonidine Hcl 0.1 Mg Tablet 0.1 Mg PO [id number] 7 Days Zofran Odt (Ondansetron) 8 Mg Tab.rapdis 4 Mg PO QID PRN Reported Preparation H Suppository (Phenylephrine Hcl/[place] Butter) 1 Each Supp.rect 1 Each RC PRN QHS PRN Proair Hfa Inhaler (Albuterol Sulfate) 8.5 Gm Hfa.aer.ad 2 Puff INH PRN QID PRN Simvastatin 20 Mg Tablet 20 Mg PO HS Pantoprazole Sodium 40 Mg Tablet.dr 40 Mg PO BIDBFRMEAL Vitamin D3 (Cholecalciferol (Vitamin D3)) 5,000 Unit Tablet 5,000 Unit PO BID Gabapentin 300 Mg Capsule 900 Mg PO BID Furosemide 40 Mg Tablet 40 Mg PO DAILY Furosemide 40 Mg Tablet 40 Mg PO DAILY Imitrex (Sumatriptan Succinate) 50 Mg Tablet 50 Mg PO PRN PRN Oxybutynin Chloride 5 Mg Tablet 5 Mg PO DAILY Morphine Sulfate 30 Mg Tablet 60 Mg PO PRN Q8HRS PRN Remeron (Mirtazapine) 30 Mg Tablet 30 Mg PO QHS Levothyroxine Sodium 75 Mcg Tablet 75 Mcg PO DAILY07 Culturelle (Lactobacillus Rhamnosus Gg) 1 Each Capsule 2 Each PO TID Zaditor (Ketotifen Fumarate) 5 Ml Drops 1 Drop EACHEYE BID Folic Acid 1 Mg Tablet 1 Tab PO DAILY Fluticasone Propionate Nasal [place] (Fluticasone Propionate) 16 Gm [place].susp 2 [place] NS DAILY Fluoxetine Hcl 40 Mg Capsule 40 Mg PO DAILY Ferrous Sulfate 325 Mg Tablet 325 Mg PO DAILY Premarin (Estrogens, Conjugated) 0.625 Mg Tablet 0.5 Mg PO QMTH Clonidine Hcl 0.1 Mg Tablet 0.1 Mg PO QHS Symbicort 160-4.5 Mcg Inhaler (Budesonide/Formoterol Fumarate) 10.2 Gm Hfa.aer.ad 2 Puff IH BID Aspirin Ec (Aspirin) 81 Mg Tablet.dr 2 Tab PO DAILY Amlodipine Besylate 5 Mg Tablet 5 Mg PO DAILY Allergies: Coded Allergies: No Known Drug Allergies (Unverified , 12/04/16) General: YES: Fatigue Respiratory: YES: Shortness of breath Cardiovascular: yes: Other (chest pain now resolved) Gastrointestinal: YES: Vomiting, Abdominal Pain General: mild distress HEENT: Atraumatic Lungs: Clear to auscultation Heart: Regular rate Abdomen: Normal bowel sounds, Other (no localizing tenderness) VITALS Vital Signs Date Time Temp Pulse Resp B/P (MAP) Pulse Ox O2 Delivery O2 Flow Rate FiO2 04/22/18 12:02 98.3 99 20 190/81 (117) 94 Room Air 04/22/18 06:15 2.0 Labs Laboratory Tests Test 04/20/18 15:40 04/20/18 16:13 04/20/18 18:20 04/20/18 19:15 Ethyl Alcohol Level < 10 mg/dL (0-10) Glucose (Fingerstick) 112 mg/dL (70-99) Influenza Type A (Rapid) Negative (NEGATIVE) Influenza Type B (Rapid) Negative (NEGATIVE) White Blood Count 11.3 x10^3/uL (4.0-11.0) Red Blood Count 5.03 x10^6/uL (3.50-5.40) Hemoglobin 12.9 g/dL (12.0-15.5) Hematocrit 40.2 % (36.0-47.0) Mean Corpuscular Volume 80 fL (79-100) Mean Corpuscular Hemoglobin 26 pg (25-35) Mean Corpuscular Hemoglobin Concent 32 g/dL (31-37) Red Cell Distribution Width 16.2 % (11.5-14.5) Platelet Count 268 x10^3/uL (140-400) Neutrophils (%) (Auto) 83 % (31-73) Lymphocytes (%) (Auto) 10 % (24-48) Monocytes (%) (Auto) 6 % (0-9) Eosinophils (%) (Auto) 0 % (0-3) Basophils (%) (Auto) 1 % (0-3) Neutrophils # (Auto) 9.4 x10^3uL (1.8-7.7) Lymphocytes # (Auto) 1.2 x10^3/uL (1.0-4.8) Monocytes # (Auto) 0.7 x10^3/uL (0.0-1.1) Eosinophils # (Auto) 0.0 x10^3/uL (0.0-0.7) Basophils # (Auto) 0.1 x10^3/uL (0.0-0.2) Test 04/20/18 21:15 04/21/18 05:45 04/21/18 07:39 04/21/18 12:08 Glucose (Fingerstick) 122 mg/dL (70-99) 136 mg/dL (70-99) 107 mg/dL (70-99) White Blood Count 10.9 x10^3/uL (4.0-11.0) Red Blood Count 5.19 x10^6/uL (3.50-5.40) Hemoglobin 13.7 g/dL (12.0-15.5) Hematocrit 41.3 % (36.0-47.0) Mean Corpuscular Volume 80 fL (79-100) Mean Corpuscular Hemoglobin 26 pg (25-35) Mean Corpuscular Hemoglobin Concent 33 g/dL (31-37) Red Cell Distribution Width 16.2 % (11.5-14.5) Platelet Count 263 x10^3/uL (140-400) Neutrophils (%) (Auto) 80 % (31-73) Lymphocytes (%) (Auto) 13 % (24-48) Monocytes (%) (Auto) 7 % (0-9) Eosinophils (%) (Auto) 0 % (0-3) Basophils (%) (Auto) 0 % (0-3) Neutrophils # (Auto) 8.7 x10^3uL (1.8-7.7) Lymphocytes # (Auto) 1.4 x10^3/uL (1.0-4.8) Monocytes # (Auto) 0.7 x10^3/uL (0.0-1.1) Eosinophils # (Auto) 0.0 x10^3/uL (0.0-0.7) Basophils # (Auto) 0.0 x10^3/uL (0.0-0.2) Sodium Level 140 mmol/L (136-145) Potassium Level 3.0 mmol/L (3.5-5.1) Chloride Level 105 mmol/L (98-107) Carbon Dioxide Level 19 mmol/L (21-32) Anion Gap 16 (6-14) Blood Urea Nitrogen 9 mg/dL (7-20) Creatinine 1.1 mg/dL (0.6-1.0) Estimated GFR (Cockcroft-Gault) 50.5 BUN/Creatinine Ratio 8 (6-20) Glucose Level 127 mg/dL (70-99) Calcium Level 8.8 mg/dL (8.5-10.1) Total Bilirubin 0.5 mg/dL (0.2-1.0) Aspartate Amino Transf (AST/SGOT) 60 U/L (15-37) Alanine Aminotransferase (ALT/SGPT) 29 U/L (14-59) Alkaline Phosphatase 89 U/L (46-116) Total Protein 7.4 g/dL (6.4-8.2) Albumin 3.7 g/dL (3.4-5.0) Albumin/Globulin Ratio 1.0 (1.0-1.7) Lipase 108 U/L (73-393) Test 04/21/18 16:58 04/21/18 21:25 04/21/18 21:34 04/22/18 06:05 Glucose (Fingerstick) 101 mg/dL (70-99) 115 mg/dL (70-99) Sodium Level 139 mmol/L (136-145) 138 mmol/L (136-145) Potassium Level 3.2 mmol/L (3.5-5.1) 3.3 mmol/L (3.5-5.1) Chloride Level 105 mmol/L (98-107) 103 mmol/L (98-107) Carbon Dioxide Level 21 mmol/L (21-32) 20 mmol/L (21-32) Anion Gap 13 (6-14) 15 (6-14) Blood Urea Nitrogen 11 mg/dL (7-20) 13 mg/dL (7-20) Creatinine 1.0 mg/dL (0.6-1.0) 1.0 mg/dL (0.6-1.0) Estimated GFR (Cockcroft-Gault) 56.4 56.4 Glucose Level 114 mg/dL (70-99) 117 mg/dL (70-99) Calcium Level 8.6 mg/dL (8.5-10.1) 9.2 mg/dL (8.5-10.1) BUN/Creatinine Ratio 13 (6-20) Total Bilirubin 0.6 mg/dL (0.2-1.0) Aspartate Amino Transf (AST/SGOT) 68 U/L (15-37) Alanine Aminotransferase (ALT/SGPT) 40 U/L (14-59) Alkaline Phosphatase 95 U/L (46-116) Troponin I Quantitative 0.034 ng/mL (0-0.055) Total Protein 7.3 g/dL (6.4-8.2) Albumin 4.0 g/dL (3.4-5.0) Albumin/Globulin Ratio 1.2 (1.0-1.7) Test 04/22/18 06:15 04/22/18 08:09 04/22/18 10:13 04/22/18 12:19 Blood Gas pH 7.43 (7.35-7.45) Blood Gas PCO2 31 mmHg (35-45) Blood Gas PO2 83 mmHg (80-100) Blood Gas HCO3 20 mmol/L (22-26) Arterial Bld O2 Saturation (Calc) 97 % (92-99) FiO2 28 % Glucose (Fingerstick) 115 mg/dL (70-99) 125 mg/dL (70-99) Troponin I Quantitative 0.026 ng/mL (0-0.055) Images CT scan of the chest shows no pulmonary emboli. It has mild atelectasis. CT scan of the abdomen shows nonspecific colitis Assessment/Plan 1. Abdominal pain. Patient is feeling better. Workup as above. We'll continue as per the primary service. 2. Somewhat atypical chest pressure. Troponins borderline at 0.034 and 0.026. Initial EKG with no ischemic changes. We will recheck an EKG today and rule out for myocardial infarction. In this setting will consider outpatient stress testing at the patient has no further pain. 3. Hypertension. Better control. Continue medications. 4. History of hyperlipidemia. We'll check records for lab. Continue present medical treatment. Thank you for allowing us to participate in the care of your patient. DA MOJICA MD Apr 22, 2018 14:02
--- NOTE | 2018-04-22 17:43 | PDOC3 ---
Discharge Summary Visit Information: Problems: (1) Colitis (2) Hypokalemia (3) Hiatal hernia (4) Hepatic steatosis (5) Atypical chest pain (6) Hypertension Qualifiers: Qualified Codes: I10 - Essential (primary) hypertension (7) Opiate dependence Qualifiers: Qualified Codes: F11.20 - Opioid dependence, uncomplicated Brief Hospital Course: Allergies: Allergies Coded Allergies Type Severity Reaction Last Updated Verified No Known Drug Allergies 12/04/16 No Vital Signs: Vital Signs Date Time Temp Pulse Resp B/P (MAP) Pulse Ox O2 Delivery O2 Flow Rate FiO2 04/22/18 16:50 18 94 Room Air 04/22/18 12:02 98.3 99 190/81 (117) 04/22/18 06:15 2.0 Lab Results: Laboratory Tests Test 04/20/18 18:20 04/20/18 19:15 04/20/18 21:15 04/21/18 05:45 Influenza Type A (Rapid) Negative (NEGATIVE) Influenza Type B (Rapid) Negative (NEGATIVE) White Blood Count 11.3 x10^3/uL (4.0-11.0) 10.9 x10^3/uL (4.0-11.0) Red Blood Count 5.03 x10^6/uL (3.50-5.40) 5.19 x10^6/uL (3.50-5.40) Hemoglobin 12.9 g/dL (12.0-15.5) 13.7 g/dL (12.0-15.5) Hematocrit 40.2 % (36.0-47.0) 41.3 % (36.0-47.0) Mean Corpuscular Volume 80 fL (79-100) 80 fL (79-100) Mean Corpuscular Hemoglobin 26 pg (25-35) 26 pg (25-35) Mean Corpuscular Hemoglobin Concent 32 g/dL (31-37) 33 g/dL (31-37) Red Cell Distribution Width 16.2 % (11.5-14.5) 16.2 % (11.5-14.5) Platelet Count 268 x10^3/uL (140-400) 263 x10^3/uL (140-400) Neutrophils (%) (Auto) 83 % (31-73) 80 % (31-73) Lymphocytes (%) (Auto) 10 % (24-48) 13 % (24-48) Monocytes (%) (Auto) 6 % (0-9) 7 % (0-9) Eosinophils (%) (Auto) 0 % (0-3) 0 % (0-3) Basophils (%) (Auto) 1 % (0-3) 0 % (0-3) Neutrophils # (Auto) 9.4 x10^3uL (1.8-7.7) 8.7 x10^3uL (1.8-7.7) Lymphocytes # (Auto) 1.2 x10^3/uL (1.0-4.8) 1.4 x10^3/uL (1.0-4.8) Monocytes # (Auto) 0.7 x10^3/uL (0.0-1.1) 0.7 x10^3/uL (0.0-1.1) Eosinophils # (Auto) 0.0 x10^3/uL (0.0-0.7) 0.0 x10^3/uL (0.0-0.7) Basophils # (Auto) 0.1 x10^3/uL (0.0-0.2) 0.0 x10^3/uL (0.0-0.2) Glucose (Fingerstick) 122 mg/dL (70-99) Sodium Level 140 mmol/L (136-145) Potassium Level 3.0 mmol/L (3.5-5.1) Chloride Level 105 mmol/L (98-107) Carbon Dioxide Level 19 mmol/L (21-32) Anion Gap 16 (6-14) Blood Urea Nitrogen 9 mg/dL (7-20) Creatinine 1.1 mg/dL (0.6-1.0) Estimated GFR (Cockcroft-Gault) 50.5 BUN/Creatinine Ratio 8 (6-20) Glucose Level 127 mg/dL (70-99) Calcium Level 8.8 mg/dL (8.5-10.1) Total Bilirubin 0.5 mg/dL (0.2-1.0) Aspartate Amino Transf (AST/SGOT) 60 U/L (15-37) Alanine Aminotransferase (ALT/SGPT) 29 U/L (14-59) Alkaline Phosphatase 89 U/L (46-116) Total Protein 7.4 g/dL (6.4-8.2) Albumin 3.7 g/dL (3.4-5.0) Albumin/Globulin Ratio 1.0 (1.0-1.7) Lipase 108 U/L (73-393) Test 04/21/18 07:39 04/21/18 12:08 04/21/18 16:58 04/21/18 21:25 Glucose (Fingerstick) 136 mg/dL (70-99) 107 mg/dL (70-99) 101 mg/dL (70-99) Sodium Level 139 mmol/L (136-145) Potassium Level 3.2 mmol/L (3.5-5.1) Chloride Level 105 mmol/L (98-107) Carbon Dioxide Level 21 mmol/L (21-32) Anion Gap 13 (6-14) Blood Urea Nitrogen 11 mg/dL (7-20) Creatinine 1.0 mg/dL (0.6-1.0) Estimated GFR (Cockcroft-Gault) 56.4 Glucose Level 114 mg/dL (70-99) Calcium Level 8.6 mg/dL (8.5-10.1) Test 04/21/18 21:34 04/22/18 06:05 04/22/18 06:15 04/22/18 08:09 Glucose (Fingerstick) 115 mg/dL (70-99) 115 mg/dL (70-99) Sodium Level 138 mmol/L (136-145) Potassium Level 3.3 mmol/L (3.5-5.1) Chloride Level 103 mmol/L (98-107) Carbon Dioxide Level 20 mmol/L (21-32) Anion Gap 15 (6-14) Blood Urea Nitrogen 13 mg/dL (7-20) Creatinine 1.0 mg/dL (0.6-1.0) Estimated GFR (Cockcroft-Gault) 56.4 BUN/Creatinine Ratio 13 (6-20) Glucose Level 117 mg/dL (70-99) Calcium Level 9.2 mg/dL (8.5-10.1) Total Bilirubin 0.6 mg/dL (0.2-1.0) Aspartate Amino Transf (AST/SGOT) 68 U/L (15-37) Alanine Aminotransferase (ALT/SGPT) 40 U/L (14-59) Alkaline Phosphatase 95 U/L (46-116) Troponin I Quantitative 0.034 ng/mL (0-0.055) Total Protein 7.3 g/dL (6.4-8.2) Albumin 4.0 g/dL (3.4-5.0) Albumin/Globulin Ratio 1.2 (1.0-1.7) Blood Gas pH 7.43 (7.35-7.45) Blood Gas PCO2 31 mmHg (35-45) Blood Gas PO2 83 mmHg (80-100) Blood Gas HCO3 20 mmol/L (22-26) Arterial Bld O2 Saturation (Calc) 97 % (92-99) FiO2 28 % Test 04/22/18 10:13 04/22/18 12:19 04/22/18 13:45 04/22/18 16:54 Troponin I Quantitative 0.026 ng/mL (0-0.055) 0.022 ng/mL (0-0.055) Glucose (Fingerstick) 125 mg/dL (70-99) 100 mg/dL (70-99) PE: Gen.: Alert, pleasant, no apparent distress HEENT: Normocephalic atraumatic, PERRLA EOMI, no scleral icterus, oral mucosa pink and moist Neck: Supple, no lymphadenopathy, nontender Cardiovascular: Normal S1 and S2 no murmurs Pulmonary: Lungs are clear bilaterally with good air movement no respiratory distress Abdomen: Soft nontender non-distended, bowel sounds present no masses Extremities: No clubbing, cyanosis or edema Neuro: Alert and oriented 3, cranial nerves II through XII grossly intact, no lateralizing neuro deficits Skin: Warm, dry Brief Hospital Course: Ms. Arthur is a 62 old [sex] who presented with [ ] Discharge Information: Home Meds: Active Scripts Ondansetron (ZOFRAN ODT) 8 Mg Tab.rapdis, 4 MG PO TID for 7 Days Prov:LORETA WHITLOCK MD 12/04/16 Clonidine Hcl (CLONIDINE HCL) 0.1 Mg Tablet, 0.1 MG PO [id number] for 7 Days, #21 TAB Prov:LORETA WHITLOCK MD 12/04/16 Ondansetron (ZOFRAN ODT) 8 Mg Tab.rapdis, 4 MG PO QID PRN for NAUSEA, #20 Prov:REGIS MI MD 12/04/16 Reported Medications Phenylephrine Hcl/[place] Butter (PREPARATION H SUPPOSITORY) 1 Each Supp.rect, 1 EACH RC PRN QHS PRN for HEMORRHOID PAIN, SUPP.RECT 04/20/18 Albuterol Sulfate (PROAIR HFA INHALER) 8.5 Gm Hfa.aer.ad, 2 PUFF INH PRN QID PRN for SHORTNESS OF BREATH, INHALER 0 Refills 04/20/18 Simvastatin (SIMVASTATIN) 20 Mg Tablet, 20 MG PO HS for cholestrol, #30 TAB 0 Refills 04/20/18 Pantoprazole Sodium (PANTOPRAZOLE SODIUM) 40 Mg Tablet.dr, 40 MG PO BIDBFRMEAL for GERD, TAB 04/20/18 Cholecalciferol (Vitamin D3) (VITAMIN D3) 5,000 Unit Tablet, 5000 UNIT PO BID for supplement, TAB 04/20/18 Gabapentin (GABAPENTIN) 300 Mg Capsule, 900 MG PO BID for nerve pain, CAP 04/20/18 Furosemide (FUROSEMIDE) 40 Mg Tablet, 40 MG PO DAILY for fluid retention, TAB 04/20/18 Furosemide (FUROSEMIDE) 40 Mg Tablet, 40 MG PO DAILY for CHF, TAB 04/20/18 Sumatriptan Succinate (IMITREX) 50 Mg Tablet, 50 MG PO PRN PRN for MIGRAINE HEADACHE, TAB 04/20/18 Oxybutynin Chloride (OXYBUTYNIN CHLORIDE) 5 Mg Tablet, 5 MG PO DAILY for bladder spasms, TAB 04/20/18 Morphine Sulfate (MORPHINE SULFATE) 30 Mg Tablet, 60 MG PO PRN Q8HRS PRN for PAIN, TAB 04/20/18 Mirtazapine (REMERON) 30 Mg Tablet, 30 MG PO QHS for depression, TAB 04/20/18 Levothyroxine Sodium (LEVOTHYROXINE SODIUM) 75 Mcg Tablet, 75 MCG PO DAILY07 for THYROID SUPPLEMENT, #30 TAB 0 Refills 04/20/18 Lactobacillus Rhamnosus Gg (CULTURELLE) 1 Each Capsule, 2 EACH PO TID for supplement, CAP 04/20/18 Ketotifen Fumarate (ZADITOR) 5 Ml Drops, 1 DROP EACHEYE BID for allergies/ itching, #5 ML 3 Refills 04/20/18 Folic Acid (FOLIC ACID) 1 Mg Tablet, 1 TAB PO DAILY for supplement, #90 TAB 3 Refills 04/20/18 Fluticasone Propionate (FLUTICASONE PROPIONATE NASAL SPRAY) 16 Gm [place].susp, 2 SPRAY NS DAILY for allergies, EACH 04/20/18 Fluoxetine Hcl (FLUOXETINE HCL) 40 Mg Capsule, 40 MG PO DAILY for depression, CAP 04/20/18 Ferrous Sulfate (FERROUS SULFATE) 325 Mg Tablet, 325 MG PO DAILY for supplement , TAB 04/20/18 Estrogens, Conjugated (PREMARIN) 0.625 Mg Tablet, 0.5 MG PO QMTH for hormone replacement, TAB 04/20/18 Clonidine Hcl (CLONIDINE HCL) 0.1 Mg Tablet, 0.1 MG PO QHS for htn, TAB 04/20/18 Budesonide/Formoterol Fumarate (SYMBICORT 160-4.5 MCG INHALER) 10.2 Gm Hfa.aer.ad, 2 PUFF IH BID for sob, #10.6 GM 3 Refills 04/20/18 Aspirin (ASPIRIN EC) 81 Mg Tablet.dr, 2 TAB PO DAILY for anticoagulant, #90 TAB 3 Refills 04/20/18 Amlodipine Besylate (AMLODIPINE BESYLATE) 5 Mg Tablet, 5 MG PO DAILY for htn, TAB 04/20/18 MARK MAGANA DO Apr 22, 2018 17:43
[2018-04-22] MEDS ORDERED: PROM25SU3 PR (17:49)
[2018-04-22] MEDS ORDERED: CIPR500T94 PO (17:49)
--- NOTE | 2018-04-24 13:27 | EKG ---
[address] [id number] Test Date: 2018-04-22 Test Time: 10:47:50 Pat Name: ALEJANDRO CARRILLO Department: Room: 115 A Gender: [employer]: : [id number] Requested By: DA MOJICA Order Number: [id number] Reading MD: Davey Wilks MD Measurements Intervals [place] Rate: P: MI: QRS: QRSD: T: QT: QTc: Interpretive Statements SR Electronically Signed On 04-25-2018 10:03:22 STUD DRIVER by Davey Wilks MD
== END 2018-04-22 17:45 | disposition home or self-care (01) | DRG 872 ==
LOC: ER 01:18 → 1 SOUTH 04:25
PROVIDERS: ADMIT Neuromusculoskeletal Medicine & OMM; ATTEND Neuromusculoskeletal Medicine & OMM
DX: A41.9 Sepsis, unspecified organism (principal); E87.2 Acidosis; F11.20 Opioid dependence, uncomplicated; I13.0 Hypertensive heart and chronic kidney disease with heart failure and stage 1 through stage 4 chronic kidney disease, or unspecified chronic kidney disease; J98.11 Atelectasis; F11.23 Opioid dependence with withdrawal; K52.9 Noninfective gastroenteritis and colitis, unspecified; R07.89 Other chest pain; E78.5 Hyperlipidemia, unspecified; E87.6 Hypokalemia; G89.29 Other chronic pain; I50.9 Heart failure, unspecified; J44.9 Chronic obstructive pulmonary disease, unspecified; K21.9 Gastro-esophageal reflux disease without esophagitis; K44.9 Diaphragmatic hernia without obstruction or gangrene; M54.5 Low back pain; G43.909 Migraine, unspecified, not intractable, without status migrainosus; F32.9 Major depressive disorder, single episode, unspecified; K64.9 Unspecified hemorrhoids; K76.0 Fatty (change of) liver, not elsewhere classified; N18.9 Chronic kidney disease, unspecified; Z79.51 Long term (current) use of inhaled steroids; Z79.890 Hormone replacement therapy; Z90.49 Acquired absence of other specified parts of digestive tract; Z98.1 Arthrodesis status; Z90.710 Acquired absence of both cervix and uterus; Z79.899 Other long term (current) drug therapy
CPT/HCPCS: 36415; 51702; 71046; 71275; 74177; 80048; 80053; 80307; 81001; 82803; 82947; 83605; 83690; 84484; 85025; 85027; 87040; 87493; 87804; 93005; 96361; 96374; 96375; 99406; C9113; G0480; J0744; J0780; J1170; J1200; J1630; J1885; J2270; J2405; J3010; J3480; J3490; Q0162; Q9967; 99285-25; J7030

== ENCOUNTER 2018-04-29 03:30 | Inpatient (IN) | payer OTHER ==
[~2018-04-29] VITALS: Ht 162.6 cm; Wt 96.2 kg
[~2018-04-29 03:30] MED LIST changes: +ALBU8.5H8 INH; +AMLO5TAB7 PO; +ASPI-612 PO; +BUDE10.2 IH; +CHOL500016 PO; +CIPR500T94 PO; +ESTR0.62 PO; +FERR325T14 PO; +FLUO40CA2 PO; +FLUT16SP21 NS; +FOLI1TAB16 PO; +FURO40TA4 PO; +GABA-586 PO; +KETO5DRO4 EACHEYE; +LACT1CAP21 PO; +LEVO75TA5 PO; +MIRT30TA PO; +MORP30TA PO; +OXYB5TAB7 PO; +PANT40TA5 PO; +PHEN1SUP75 RC; +PROM25SU3 PR; +SIMV20TA3 PO; +SUMA50TA3 PO
--- NOTE | 2018-04-29 03:41 | ED.ADGEN ---
Past History Past Medical History: Anxiety, Arthritis, Bronchitis, CAD, CHF, COPD, CVA, Diabetes, High Cholesterol, Hypertension, Kidney Infection, Pneumonia, Renal Failure, TIA, UTI, Other Past Surgical History: Cholecystectomy, Hysterectomy, Lumbar Laminectomy, Other Smoking: Cigarettes Alcohol Use: None Drug Use: Marijuana Adult General Chief Complaint Chief Complaint ".. I woke up in.... a severe sweat... I could.... not breath..'. .. I feel like got.... pneumonia ... or something.. ".. " I was in here ....the other day... ".. " Much... worse.. today...." HPI HPI Patient is a 62 year old female who presents with above hx and complaints of severe dyspnea. Pt does use BiPAP at night and to use 2 lt. oxygen when dyspnea severe. Pt. currently out of oxygen tanks. Pt. complaints of leg edema and redness. Pt. recently admitted on 04/20/2018 for multiple complaints to Dr. Arroyo. At that time seen by Cardiology Dr Moe, and Dr. Wilks. Pt. Past medical hx of an marijuana induce cyclic vomiting, colitis, hypokalemia, Atypical chest pain, HTN, Opiate dependent, chronic pain, COPD, Urinary retention, peripheral neuropathy, sleep apnea, Bronchitis and Tob. Abuse. Pt. follows at [place] and with primary Dr. Vinson. Pt. reports compliance with her meds. No travel or specific ill contacts. Smoking up yesterday, to much dyspnea to smoke today. Cough is now productive. In obvious respiratory distress. Tachycardia, Tripod position, retractions, purse lip breathing, diaphoretic, fingers cyanotic and sats 70-80%. Review of Systems Review of Systems Constitutional: Complaints of fever or chills [] Eyes: Denies change in visual acuity, redness, or eye pain [] HENT: Denies nasal congestion or sore throat [] Respiratory: Complaints of cough and severe shortness of breath [] Cardiovascular: No additional information not addressed in HPI [] GI: Denies abdominal pain, bloody stools or diarrhea [] Complaints of nausea, vomiting, : Denies dysuria or hematuria []Hx of Urinary retention- self caths. Musculoskeletal:Chronic back pain or joint pain [] Integument: Denies rash or skin lesions [] Neurologic: Denies headache, focal weakness or sensory changes [] Endocrine: Denies polyuria or polydipsia [] All other systems were reviewed and found to be within normal limits, except as documented in this note. Family History Family History Non-contributory Current Medications Current Medications Current Medications Medications (Trade) Dose Ordered Sig/Diana Start Time Stop Time Status Last Admin Dose Admin Albuterol/ Ipratropium (Duoneb) 3 ml 1X ONCE 04/29/18 04:15 04/29/18 05:22 DC 04/29/18 04:50 3 ML Aspirin (Children'S Aspirin) 324 mg 1X ONCE 04/29/18 04:15 04/29/18 05:20 DC 04/29/18 04:52 324 MG Enoxaparin Sodium (Lovenox 100mg Syringe) 90 mg 1X ONCE 04/29/18 04:30 04/29/18 05:22 DC 04/29/18 04:52 90 MG Lactated Ringer's 1,000 ml @ 100 mls/hr Q10H 04/29/18 04:08 04/29/18 14:07 DC 04/29/18 04:53 100 MLS/HR Methylprednisolone Sodium Succinate (SOLU-Medrol 125MG VIAL) 125 mg 1X ONCE 04/29/18 04:15 04/29/18 05:23 DC 04/29/18 04:53 125 MG Allergies Allergies Allergies Coded Allergies Type Severity Reaction Last Updated Verified adhesive Allergy Severe Hives 04/29/18 Yes latex Allergy Severe 04/29/18 Yes Physical Exam Physical Exam Constitutional: in acute distress, ill in appearance. [] HENT: Normocephalic, atraumatic, bilateral external ears normal, oropharynx moist, no oral exudates, nose normal. [] Eyes: PERRLA, EOMI, conjunctiva normal, no discharge. [] Neck: Normal range of motion, no tenderness, supple, no stridor. [] Cardiovascular:Tachycardia Heart rate regular rhythm, no murmur [] Lungs & Thorax: Bilateral breath sounds equal at apex with scattered wheezing auscultation []Basilar crackles and rhonchi more prominent on left lower base. Abdomen: Bowel sounds normal, soft, no tenderness, no masses, no pulsatile masses. [] Obese. Old surgery scars. Skin: Warm, diaphoretic , leg erythema, no specific rash pattern. . [] Back: No tenderness, no CVA tenderness. [] Extremities: Bilateral calf tenderness, finger cyanosis, no clubbing, ROM intact , bilateral ankle edema. [] No true cording noted. Neurologic: Alert and oriented X 3, moves all ext. on request. , no gross focal deficits changes noted by pt. . Decreased plantar sensation.- chronic. Lower legs chronically weak and decreased sensation- (Hx spinal surgery and spinal stenosis) Psychologic: Affect anxious, judgement normal, mood normal. [] Current Patient Data Vital Signs Vital Signs Date Time Temp Pulse Resp B/P (MAP) Pulse Ox O2 Delivery O2 Flow Rate FiO2 04/29/18 03:40 98.7 97 24 82 Room Air Lab Results Laboratory Tests Test 04/29/18 04:10 Blood pH 7.33 (7.35-7.45) L Blood Gas PCO2 44 mmHg (35-45) Blood Gas PO2 48 mmHg (80-100) *L Blood Gas HCO3 23 mmol/L (22-26) Arterial Bld O2 Saturation (Calc) 80 % (92-99) L FiO2 21 % EKG EKG My interpretation EKG shows a sinus rhythm at 79 bpm. Does have some nonspecific contour abnormalities in anterior septal region. But no findings acute STEMI of contralateral changes.[] Radiology/Procedures Radiology/Procedures My interpretation chest x-ray shows findings consistent with chronic obstructive pulmonary disease and emphysema. There is left lower base or scarring atelectasis. Does have a increased consolidation in the left lower base as compared to prior x-ray on 04/20/2018. There are findings of previous abdomen surgeries.-Right upper quadrant. A right lower pulmonary calcified node.[] Course & Med Decision Making Course & Med Decision Making Pertinent Labs and Imaging studies reviewed. (See chart for details) Discussed presentation, testing and tx. plan with Dr. Garcia. Pt. to be Admitted to Dr. Garcia, Cardiology consult. US to evaluate lower leg edema and erythema- DVT vs Cellulitis vs Veinous stasis vs Peripheral vascular dz. . Prior CT neg. for PE on last admission 04/20/2018- reviewed films. Critical care 90 min. to bring in CPAP or BiPAP from home. [] Final Impression Final Impression 1. Respiratory Failure- Hypoxia and Hypercarbia 2. COPD exacerbation 3. Tobacco and Marijuana Use 4. Urinary retention-2nd Lumbar- fusion and spinal stenosis 5. Peripheral neuropathy 6. History of colitis 7. History of hypertension 8. Chronic pain-opiates dependence 9. Hx. Sleep Apnea- CPAP/ Bipap 10. Elevated D-dimer 2.0 11. Hypokalemia 3.0 12. Hypomagnesium 1.6 13. Malnutrition Alb. 3.0 14. Elevated Creat. 1.2 15. Dm 137 Dragon Disclaimer Dragon Disclaimer This electronic medical record was generated, in whole or in part, using a voice recognition dictation system. SIRI YAO MD Apr 29, 2018 03:41
[2018-04-29] MEDS ORDERED: IV RINGERS SOLUTION,LACTATED 1,000 ML IV SCH (04:08)
[2018-04-29] MEDS ORDERED: methylPREDNISolone SOD SUCC PF 125 MG/2 ML VIAL. IV ONE (04:15)
[2018-04-29] MEDS ORDERED: ASPIRIN 81 MG TAB.CHEW PO ONE (04:15)
[2018-04-29] MEDS ORDERED: IPRATRPIUM/ALBUTEROL 0.5/2.5MG 3 ML NEBU. NEB ONE (04:15)
[2018-04-29 04:25] LABS: BGAS PH 7.33 (7.35-7.45)
[2018-04-29] MEDS ORDERED: ENOXAPARIN ** NOTE DOSE ** SYRINGE SQ ONE (04:30)
[2018-04-29] MEDS ORDERED: AZITHROMYCIN 250 MG TABLET. PO ONE (04:45)
[2018-04-29] MEDS ORDERED: MORPHINE SULFATE 2 MG/ML DISP.SYRIN. IV PRN (05:00)
[2018-04-29] MEDS ORDERED: ONDANSETRON PF 4 MG/2 ML VIAL. IV PRN (05:00)
[2018-04-29 05:19] LABS: BASO # 0.1 x10^3/uL (0.0-0.2); BASO % 1 % (0-3); EOS # 0.1 x10^3/uL (0.0-0.7); EOS % 1 % (0-3); HEMATOCRIT 37.8 % (36.0-47.0); HEMOGLOBIN 12.4 g/dL (12.0-15.5); LYMPH # 1.4 x10^3/uL (1.0-4.8); LYMPH % 16 % (24-48); MEAN CORPUSCULAR HEMOGLOBIN 26 pg (25-35); MEAN CORPUSCULAR HGB CONC 33 g/dL (31-37); MEAN CORPUSCULAR VOLUME 80 fL (79-100); MONO # 0.7 x10^3/uL (0.0-1.1); MONO % 8 % (0-9); NEUT # 6.5 x10^3uL (1.8-7.7); NEUT % 74 % (31-73); PLATELET COUNT 239 x10^3/uL (140-400); RED BLOOD COUNT 4.73 x10^6/uL (3.50-5.40); RED CELL DISTRIBUTION WIDTH 15.5 % (11.5-14.5); WHITE BLOOD COUNT 8.8 x10^3/uL (4.0-11.0)
[2018-04-29 05:36] LABS: CALCIUM 8.2 mg/dL (8.5-10.1); CREATININE 1.2 mg/dL (0.6-1.0); DIRECT BILIRUBIN 0.1 mg/dL (0.0-0.2); GFR 45.7; MAGNESIUM 1.6 mg/dL (1.8-2.4); TOTAL BILIRUBIN 0.3 mg/dL (0.2-1.0); TOTAL PROTEIN 6.6 g/dL (6.4-8.2)
[2018-04-29] MEDS ORDERED: MAGNESIUM SULFATE 2GM 50 ML IV ONE (06:00)
[2018-04-29] MEDS ORDERED: POTASSIUM CHLORIDE 20 MEQ/15 ML ORAL LIQUID. PO ONE (06:00)
--- NOTE | 2018-04-29 06:22 | EKG ---
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
[2018-04-29 06:46] LABS: BARBITURATES NEG (NEG); BENZODIAZEPINES NEG (NEG); CANNABINOIDS POS (NEG); COCAINE NEG (NEG); METHADONE NEG (NEG); OPIATES POS (NEG); PHENCYCLIDINE NEG (NEG)
[2018-04-29 06:47] LABS: BACTERIA,URINE 0 /HPF (0-FEW); BILIRUBIN,URINE NEG (NEG); CLARITY,URINE CLEAR; COLOR,URINE YELLOW; GLUCOSE,URINE NEG (NEG); NITRITE,URINE NEG (NEG); RBC,URINE 0 /HPF (0-2); SQUAMOUS EPITHELIAL CELL,UR OCC /LPF; UROBILINOGEN,URINE 0.2 mg/dL (0.2 mg/dL); WBC,URINE RARE /HPF (0-4)
[2018-04-29 06:51] LABS: AMPHETAMINE/METHAMPHETAMINE NEG (NEG)
[2018-04-29 08:20] VITALS: BP 121/67
--- NOTE | 2018-04-29 08:29 | RAD ---
EXAM: AP View of the chest DATE: 04/29/2018 3:44 AM INDICATION: dYSPNEA COMPARISON: CT angiogram of the chest 04/22/2018 FINDINGS: The heart is not enlarged. Prominence of the pulmonary arterial trunk may be seen with pulmonary arterial hypertension. Atherosclerotic calcifications of aorta are seen. Bibasilar opacities (left greater than right) may be seen with atelectasis or consolidation. No pleural effusion or pneumothorax. IMPRESSION: Bibasilar opacities (left greater than right) may be seen with atelectasis or consolidation. Given regions of linear nature, favor predominant component of atelectasis. Electronically signed by: Ga Yang MD (04/29/2018 8:26 AM) [facility]
[2018-04-29] MEDS: ASPIRIN 81 MG TAB.CHEW PO SCH (09:00)
[2018-04-29] MEDS: IPRATRPIUM/ALBUTEROL 0.5/2.5MG 3 ML NEBU. NEB SCH ×4 (10:43→20:00)
[2018-04-29 10:46] VITALS: BP 111/54
--- NOTE | 2018-04-29 12:49 | RAD ---
CLINICAL HISTORY: Leg edema COMPARISON: None available. TECHNIQUE: Ultrasound evaluation of the bilateral lower extremities was performed from the groin to the upper calf with flores scale, spectral and color doppler evaluation. FINDINGS: The common femoral vein, and femoral vein, including the saphenous-femoral junction are normal in appearance. Color and spectral Doppler evaluation demonstrates normal spontaneous flow, augmentation and phasicity. The popliteal vein and visualized calf veins also demonstrate normal compressibility and flow. IMPRESSION: No evidence of bilateral lower extremity DVT. Electronically signed by: Ga Yang MD (04/29/2018 12:45 PM) [facility]
[2018-04-29] MEDS ORDERED: PROMETHAZINE 25 MG SUPP.RECT. PR PRN (14:15)
[2018-04-29] MEDS ORDERED: ALBUTEROL SULFATE 8GM INHALER. INH PRN (14:15)
[2018-04-29] MEDS ORDERED: ONDANSETRON ODT 4 MG TAB.RAPDIS PO PRN (14:45)
[2018-04-29 14:59] VITALS: BP 116/62
[2018-04-29] MEDS ORDERED: PHENYLEPHRINE/COCOA BUTTER RECTAL SUPP. PR PRN (15:00)
[2018-04-29] MEDS ORDERED: POTASSIUM CHLORIDE 20 MEQ TABLET.ER. PO ONE (15:00)
[2018-04-29] MEDS ORDERED: SUMAtriptan SUCCINATE 50 MG TABLET PO PRN (15:00)
[2018-04-29] MEDS ORDERED: ALBUTEROL SULFATE 2.5 MG/3 ML NEBU. NEB PRN (15:15)
--- NOTE | 2018-04-29 15:29 | HP ---
ADMIT DATE: 04/29/2018 HISTORY OF PRESENT ILLNESS: The patient is a 62-year-old female patient. She did complain of severe dyspnea, although that was her complaint to the ER physician. When I spoke to her, she said she woke up complaining of having nausea, vomiting and diarrhea. She has also had incontinence and her clothes were wet. She was also confused; however, she did complain of severe dyspnea and she does use BiPAP at night time and use 2 liters of oxygen when dyspnea is severe. She is currently out of oxygen tanks. She also complained of bilateral lower extremity swelling, tingling and numbness and loss of sensation. She was seen last time by Dr. Moe and Dr. Wilks. She was extensively evaluated in the Emergency Room. She had an EKG, chest x-ray. She did have hypoxia with oxygen saturation of only 80% on room air. Her D-dimer was high at 2 mg/dL. However, her urinalysis was unremarkable and toxic screen was positive only for opiates and cannabinoids. Her chest x-ray showed that the heart is not enlarged. The prominence of the pulmonary arterial trunk may be seen with pulmonary arterial hypertension; however, atherosclerotic calcification of the aorta as seen. She has bibasilar opacities, left greater than right to be seen with flexes, no consolidation, no pleural effusion, no pneumothorax. She was admitted and was given steroids, IV ceftriaxone and azithromycin. She was also started on Lovenox 90 mg twice a day subcutaneously together with albuterol and Atrovent. She is known to have a tendency to retain her urine. She had an indwelling Chan catheter. PAST MEDICAL HISTORY: Significant for chronic obstructive pulmonary disease, hypertension, type 2 diabetes, hyperlipidemia. She did have a cerebrovascular accident, chronic kidney disease, urinary retention. She did have a left hip abscess for which she grew MRSA and required incision and drainage. PAST SURGICAL HISTORY: Significant for back surgery, appendectomy, tonsillectomy, cholecystectomy, total abdominal hysterectomy, bilateral salpingo-oophorectomy. She has left wrist fracture, status post reconstruction. ALLERGIES: SHE IS ALLERGIC TO ADHESIVES AND LATEX. MEDICATIONS: She is currently on the following medication, promethazine 25 mg every 6 hours for nausea and vomiting She was on ciprofloxacin 500 mg twice a day, albuterol sulfate for ProAir 2 puffs 4 times a day, ferrous sulfate 325 mg once a day, simvastatin 20 mg at bedtime, clonidine ____ mg at bedtime, amlodipine 5 mg once a day, aspirin 81 mg once a day, morphine sulfate 60 mg every 8 hours as needed, gabapentin 900 mg twice a day, fluoxetine 40 mg daily, mirtazapine 30 mg at bedtime, sumatriptan succinate 50 mg for headache as needed, furosemide 40 mg p.o. daily, Symbicort 160/4.5 mcg 2 puffs twice a day, ketotifen fumarate for Zaditor one drop each eye twice a day. She is on Flonase 2 sprays to each nostril once a day, ondansetron for Zofran 4 mg 4 times a day, Protonix 40 mg twice a day. She is on lactobacillus rhamnosus 2 capsules 3 times a day. She is on conjugated estrogen for Premarin p.o. once a month. She is on levothyroxine sodium 75 mcg once a day, phenylephrine cocoa butter Preparation-H suppository as needed. She is on oxybutynin chloride 5 mg daily, folic acid 1 mg once a day, cholecalciferol 5000 international twice a day. REVIEW OF SYSTEMS: The patient denied any blurring of vision, cataract, glaucoma or macular degeneration. Denied any earache, tinnitus or sensorineural deafness. Denied any nosebleeds, stuffy nose or postnasal drip. Denied any sore throat, sore tongue, toothache, hoarseness of voice or difficulty swallowing. Did complain of nausea and vomiting as well as diarrhea, but denied any hematemesis, melena or hematochezia. Denied any dysuria, frequency or hematuria. She did have an indwelling Chan catheter. Denied any chest pain. Did complain of shortness of breath. Denied any cough, phlegm or hemoptysis. PHYSICAL EXAMINATION: GENERAL: When I examined her, she looked well and was clearly in no apparent respiratory distress. She is somewhat pale, but no jaundice, cyanosis, or thyromegaly. No jugular venous distension. She has bilateral lower limb edema. VITAL SIGNS: Her heart rate was 88, blood pressure 111/54, temperature was 98, respiratory rate was 20, and oxygen saturation was 92% on 2 liters of oxygen. HEAD, EYES, EARS, NOSE AND THROAT: Showed normocephalic, atraumatic. NECK: Supple. HEART: Showed normal first and second heart sounds with no gallop, rub or murmur. CHEST: Showed central trachea, equal bilateral expansion, air entry, vesicular sounds. No crepitation or rhonchi. ABDOMEN: Distended, soft, nontender. NEUROLOGIC: She was awake, alert, responding appropriately, but did complain that she has episodes of confusion. The story that she gave to me and the story that she gave to the ER physician was completely different. She told me that she is having nausea, vomiting and diarrhea while she told the ER physician she has severe shortness of breath. LABORATORY DATA: While in the Emergency Room, she has had lab work done, which showed a white cell count of 8800, hemoglobin 12.4, hematocrit 37.8, MCV 80 and platelet count 239,000 with normal manual differential. Her chemistry showed a serum sodium 139, potassium 3, chloride 102, bicarbonate 27, anion gap of 10, BUN 13, creatinine 1.2, estimated GFR was 45 mL per minute. Her glucose was 137, calcium was 8.2, magnesium was 1.6. Total bilirubin, AST, ALT, alkaline phosphatase were normal. Her CK was slightly high. Beta natriuretic peptide was 581. Total protein was 6.6, albumin 3, lipase was 53 and TSH was 4.485. Her prothrombin time was 10, INR 1, aPTT was 23 and D-dimer was 2. Her blood gases showed a pH of 7.33, pCO2 of 44, pO2 48, bicarbonate 23, oxygen saturation was 80 and FiO2 of 21%. Urinalysis showed the urine was yellow, clear with a pH of 5.5, specific gravity of 1.015. The urine was negative for protein, glucose, ketones, blood, nitrite and leukocyte esterase. There are no rbc's, no wbc's, and no bacteria. Her urine toxicology screen was positive for opiates as well as cannabinoid screen negative for methadone, barbiturates, phencyclidine, amphetamine, methamphetamine, benzodiazepine, cocaine and alcohol. She has had a chest x-ray, which showed that the heart is not enlarged. There is prominence of the pulmonary arterial trunk may be seen with pulmonary artery hypertension, atherosclerotic calcification of the aorta are seen. She has bibasilar opacities, left greater than right, may be seen with atelectasis or consolidation, no pleural effusion or pneumothorax. IMPRESSION: The patient has bibasilar opacities, left greater than right, may be seen with atelectasis or consolidation given regions of linear nature favor predominant component of atelectasis. Given the elevated D-dimer, she had had venous Doppler ultrasound of both lower extremities, which basically showed that there is no evidence of bilateral lower extremity deep vein thrombosis. PLAN: I will continue all her medication and continue with IV antibiotic. She has hypokalemia and hypomagnesemia, I would replenish that and continue with Lovenox for now. We will probably arrange for her to have a CT angio of the chest to rule out the possibility of a pulmonary embolism given severe hypoxemia and shortness of breath. BRUCE BENZ MD DR: JACQUELIN/junie JOB#: [id number] / [id number]
[2018-04-29] MEDS: ALBUTEROL SULFATE 2.5 MG/3 ML NEBU. NEB SCH ×2 (16:00→20:13)
[2018-04-29] MEDS ORDERED: oxyCODONE IR 5 MG TABLET PO PRN (16:00)
[2018-04-29] MEDS: MORPHINE ER 30 MG TABLET.ER PO PRN (16:13)
[2018-04-29] MEDS: PANTOPRAZOLE 40 MG TABLET. PO SCH (17:40)
[2018-04-29 18:27] LABS: CALCIUM 8.7 mg/dL (8.5-10.1); CREATININE 1.2 mg/dL (0.6-1.0); GFR 45.7; POTASSIUM 3.9 mmol/L (3.5-5.1)
[2018-04-29 19:26] VITALS: BP 130/60
[2018-04-29] MEDS: BUDESONIDE 0.5 MG/2 ML NEBU NEB SCH (20:13)
[2018-04-29] MEDS ORDERED: NON FORMULARY ITEM (Ciprofloxacin Hcl (Cipro) 1 TAB) PO SCH (21:00)
[2018-04-29] MEDS ORDERED: NON FORMULARY ITEM (Budesonide/Formoterol Fumarate (Symbicort 160-4.5 Mcg Inhaler) 2 PUFF) IH SCH (21:00)
[2018-04-29] MEDS: methylPREDNISolone SOD SUCC PF 40 MG/ML VIAL. IV SCH (21:13)
[2018-04-29] MEDS: KETOTIFEN FUMARATE 0.025% OPHT SOLUTION BOTTLE. OU SCH (21:13)
[2018-04-29] MEDS: SIMVASTATIN 20 MG TABLET PO SCH (21:14)
[2018-04-29] MEDS: GABAPENTIN 300 MG CAPSULE. PO SCH (21:14)
[2018-04-29] MEDS: MAGNESIUM OXIDE 400 MG TABLET PO SCH (21:14)
[2018-04-29] MEDS: LACTOBACILLUS RHAMNOSUS GG 1 CAPSULE. PO SCH (21:14)
[2018-04-29] MEDS: ENOXAPARIN ** NOTE DOSE ** SYRINGE SQ SCH (21:15)
[2018-04-29] MEDS: cloNIDine HCL 0.1 MG TABLET PO SCH (21:15)
[2018-04-29] MEDS: MIRTAZAPINE 30 MG TABLET PO SCH (21:17)
[2018-04-29] MEDS: CHOLECALCIFEROL (VITAMIN D3) 1,000 UNIT TABLET PO SCH (21:17)
[2018-04-30 05:00] VITALS: BP 157/73
[2018-04-30] MEDS: ALBUTEROL SULFATE 2.5 MG/3 ML NEBU. NEB SCH ×4 (05:10→20:44)
[2018-04-30] MEDS: cefTRIAXone IV Push 1 GM VIAL. IVP SCH (05:20)
[2018-04-30] MEDS: LEVOTHYROXINE 75 MCG TABLET PO SCH (05:20)
[2018-04-30 05:51] VITALS: BP 157/73
[2018-04-30 06:59] LABS: BASO % 0 % (0-3); EOS % 0 % (0-3); HEMATOCRIT 33.4 % (36.0-47.0); LYMPH # 0.5 x10^3/uL (1.0-4.8); LYMPH % 5 % (24-48); MEAN CORPUSCULAR HEMOGLOBIN 27 pg (25-35); MEAN CORPUSCULAR HGB CONC 33 g/dL (31-37); MEAN CORPUSCULAR VOLUME 81 fL (79-100); MONO # 0.4 x10^3/uL (0.0-1.1); MONO % 4 % (0-9); NEUT # 9.4 x10^3uL (1.8-7.7); NEUT % 91 % (31-73); PLATELET COUNT 198 x10^3/uL (140-400); RED BLOOD COUNT 4.13 x10^6/uL (3.50-5.40); RED CELL DISTRIBUTION WIDTH 16.2 % (11.5-14.5); WHITE BLOOD COUNT 10.3 x10^3/uL (4.0-11.0)
[2018-04-30 07:21] LABS: ALBUMIN 2.6 g/dL (3.4-5.0); ALBUMIN/GLOBULIN RATIO 0.7 (1.0-1.7); CALCIUM 8.4 mg/dL (8.5-10.1); CREATININE 1.1 mg/dL (0.6-1.0); GFR 50.5; POTASSIUM 3.8 mmol/L (3.5-5.1); TOTAL BILIRUBIN 0.1 mg/dL (0.2-1.0); TOTAL PROTEIN 6.2 g/dL (6.4-8.2)
[2018-04-30] MEDS ORDERED: POTASSIUM CHLORIDE 20 MEQ TABLET.ER. PO SCH (08:00)
[2018-04-30] MEDS: OXYBUTYNIN CHLORIDE 5 MG TABLET PO SCH (08:26)
[2018-04-30] MEDS: PANTOPRAZOLE 40 MG TABLET. PO SCH ×2 (08:26→17:31)
[2018-04-30] MEDS: FLUoxetine HCL 20 MG CAPSULE PO SCH (08:26)
[2018-04-30] MEDS: ASPIRIN ENTERIC COATED 81 MG TABLET.DR. PO SCH ×2 (08:26→09:00)
[2018-04-30] MEDS: FOLIC ACID 1 MG TABLET PO SCH (08:27)
[2018-04-30] MEDS: ASPIRIN 81 MG TAB.CHEW PO SCH (08:27)
[2018-04-30] MEDS: amLODIPine BESYLATE 5 MG TABLET PO SCH (08:28)
[2018-04-30] MEDS: CHOLECALCIFEROL (VITAMIN D3) 1,000 UNIT TABLET PO SCH ×2 (08:28→20:36)
[2018-04-30] MEDS: MAGNESIUM OXIDE 400 MG TABLET PO SCH ×3 (08:28→20:36)
[2018-04-30] MEDS: GABAPENTIN 300 MG CAPSULE. PO SCH ×2 (08:29→20:37)
[2018-04-30] MEDS: AZITHROMYCIN 250 MG TABLET. PO SCH (08:29)
[2018-04-30] MEDS: LACTOBACILLUS RHAMNOSUS GG 1 CAPSULE. PO SCH ×2 (08:30→20:36)
[2018-04-30] MEDS: ENOXAPARIN ** NOTE DOSE ** SYRINGE SQ SCH ×2 (08:30→20:37)
[2018-04-30] MEDS: FERROUS SULFATE 325 MG TABLET. PO SCH (08:30)
[2018-04-30] MEDS: methylPREDNISolone SOD SUCC PF 40 MG/ML VIAL. IV SCH ×2 (08:30→20:37)
[2018-04-30] MEDS: FLUTICASONE 50MCG/NASAL SPRAY 16GM BOTTLE. NS SCH (08:31)
[2018-04-30] MEDS: KETOTIFEN FUMARATE 0.025% OPHT SOLUTION BOTTLE. OU SCH ×2 (08:31→20:37)
[2018-04-30] MEDS ORDERED: methylPREDNISolone SOD SUCC PF 125 MG/2 ML VIAL. IV SCH (09:00)
[2018-04-30] MEDS ORDERED: FUROSEMIDE 40 MG TABLET PO SCH (09:00)
[2018-04-30] MEDS: BUDESONIDE 0.5 MG/2 ML NEBU NEB SCH ×2 (10:56→20:44)
[2018-04-30] MEDS ORDERED: FUROSEMIDE 40 MG/4 ML VIAL IVP ONE (11:00)
[2018-04-30 11:11] VITALS: BP 117/62
[2018-04-30] MEDS ORDERED: DEXTROSE 50% 25 GM / 50ML DISP.SYRIN. IV PRN (13:00)
--- NOTE | 2018-04-30 14:48 | PN ---
DATE: 04/30/2018 SUBJECTIVE: The patient is resting slightly propped up in bed on her BiPAP machine. On questioning her, she said that she has no further episodes of nausea or vomiting. She is continuing to have loose bowel movement. Denied any shortness of breath, but her main complaint is marked swelling of both lower extremities. PHYSICAL EXAMINATION: GENERAL: When I examined her, she was resting slightly propped up in bed, in no apparent respiratory distress, pale, but no jaundice, cyanosis, lymphadenopathy, or thyromegaly. No jugular venous distention. No lower limb edema. VITAL SIGNS: Her heart rate was 96, blood pressure was 157/73, temperature was 98.1, respiratory rate 20, and oxygen saturation was 93% on 2 liters of oxygen by nasal cannula. HEAD, EYES, EARS, NOSE AND THROAT: Showed normocephalic, atraumatic. NECK: Supple. HEART: Showed normal first and second heart sounds with no gallop, rub, or murmur. CHEST: Clear to auscultation. No crepitation or rhonchi. ABDOMEN: Distended, soft, nontender. No guarding or rigidity. No organomegaly. All hernial orifice intact. Bowel sounds normal. NEUROLOGIC: She was awake, alert, responding appropriately. All cranial nerves intact. She moves all her extremities without difficulty. Examination of the lower extremity showed no clubbing or cyanosis but marked bilateral lower limb edema. Her intake over the last 24 hours was 980, output was 950. LABORATORY DATA: Her lab work showed her serum sodium 140, potassium 3.8, chloride 104, bicarbonate 26, anion gap of 10, BUN 16, creatinine 1.1, estimated GFR was 50 mL per minute. Her glucose was 221. Calcium was 8.4. Total bilirubin, AST, ALT, alkaline phosphatase were normal. Her BNP has risen from 580 to 3078. Her total protein was 6.2, albumin was 2.6. Her prothrombin time was 10, INR of 1, aPTT was 23, and D-dimer was 2. Her blood gases showed a pH of 7.33, pCO2 of 44, pO2 of 48, bicarbonate 23, anion gap of 80, BUN 21. Her Doppler ultrasound was negative and did not show any DVT in the lower extremities. She apparently has had a CT angio on 04/22/2018 that was negative for pulmonary embolus. She has mild atelectasis in both lower lobes. ASSESSMENT: 1. Bilateral lower lobe infiltrate. 2. Chronic obstructive pulmonary disease exacerbation. 3. Acute hypoxic respiratory failure. 4. Type 2 diabetes. 5. Hypertension. 6. Hyperlipidemia. 7. Chronic kidney disease. 8. Urinary retention. PLAN: My plan is to continue with IV antibiotic in the form of Rocephin and Zithromax for community-acquired pneumonia. Continue with steroids and bronchodilators. Given the marked swelling of her lower extremities, I will start her on Lasix IV at 40 mg once a day. I will continue with Lovenox for the time being. I will repeat her labs tomorrow and if the creatinine remains within the same level, I will arrange for her to have a CT angio again. BRUCE BENZ MD DR: JACQUELIN/junie JOB#: [id number] / [id number]
[2018-04-30] MEDS: POTASSIUM CHLORIDE 20 MEQ TABLET.ER. PO SCH ×2 (15:46→20:36)
[2018-04-30 15:51] VITALS: BP 104/55
[2018-04-30] MEDS: INSULIN LISPRO 300 UNITS/3 ML INSULN.PEN. SQ SCH (17:31)
[2018-04-30] MEDS: MORPHINE ER 30 MG TABLET.ER PO PRN (19:46)
[2018-04-30 20:16] VITALS: BP 111/50
[2018-04-30] MEDS: SIMVASTATIN 20 MG TABLET PO SCH (20:36)
[2018-04-30] MEDS: cloNIDine HCL 0.1 MG TABLET PO SCH (20:36)
[2018-04-30] MEDS: MIRTAZAPINE 30 MG TABLET PO SCH (20:38)
[2018-04-30 22:52] VITALS: BP 103/64
[2018-05-01] MEDS: ALBUTEROL SULFATE 2.5 MG/3 ML NEBU. NEB SCH ×3 (05:05→21:10)
[2018-05-01 05:55] VITALS: BP 100/66
[2018-05-01] MEDS: cefTRIAXone IV Push 1 GM VIAL. IVP SCH (06:21)
[2018-05-01] MEDS: LEVOTHYROXINE 75 MCG TABLET PO SCH (06:21)
[2018-05-01 06:22] LABS: BASO % 0 % (0-3); EOS % 0 % (0-3); HEMATOCRIT 33.1 % (36.0-47.0); HEMOGLOBIN 10.9 g/dL (12.0-15.5); LYMPH # 0.7 x10^3/uL (1.0-4.8); LYMPH % 7 % (24-48); MEAN CORPUSCULAR HEMOGLOBIN 27 pg (25-35); MEAN CORPUSCULAR HGB CONC 33 g/dL (31-37); MEAN CORPUSCULAR VOLUME 81 fL (79-100); MONO # 0.4 x10^3/uL (0.0-1.1); MONO % 4 % (0-9); NEUT # 9.2 x10^3uL (1.8-7.7); NEUT % 89 % (31-73); PLATELET COUNT 237 x10^3/uL (140-400); RED BLOOD COUNT 4.09 x10^6/uL (3.50-5.40); RED CELL DISTRIBUTION WIDTH 16.6 % (11.5-14.5); WHITE BLOOD COUNT 10.3 x10^3/uL (4.0-11.0)
[2018-05-01 06:30] LABS: CALCIUM 7.8 mg/dL (8.5-10.1); CREATININE 1.1 mg/dL (0.6-1.0); GFR 50.5; POTASSIUM 4.6 mmol/L (3.5-5.1)
[2018-05-01] MEDS: PANTOPRAZOLE 40 MG TABLET. PO SCH ×2 (08:20→16:55)
[2018-05-01] MEDS: INSULIN LISPRO 300 UNITS/3 ML INSULN.PEN. SQ SCH ×3 (08:22→17:03)
[2018-05-01] MEDS: ENOXAPARIN ** NOTE DOSE ** SYRINGE SQ SCH ×2 (08:58→20:51)
[2018-05-01] MEDS: FLUoxetine HCL 20 MG CAPSULE PO SCH (08:58)
[2018-05-01] MEDS: LACTOBACILLUS RHAMNOSUS GG 1 CAPSULE. PO SCH ×2 (08:58→20:51)
[2018-05-01] MEDS: ASPIRIN 81 MG TAB.CHEW PO SCH ×2 (08:58→09:00)
[2018-05-01] MEDS: methylPREDNISolone SOD SUCC PF 40 MG/ML VIAL. IV SCH ×2 (08:58→20:53)
[2018-05-01] MEDS: POTASSIUM CHLORIDE 20 MEQ TABLET.ER. PO SCH ×3 (08:58→20:53)
[2018-05-01] MEDS: OXYBUTYNIN CHLORIDE 5 MG TABLET PO SCH (08:59)
[2018-05-01] MEDS: ASPIRIN ENTERIC COATED 81 MG TABLET.DR. PO SCH (08:59)
[2018-05-01] MEDS: FERROUS SULFATE 325 MG TABLET. PO SCH (08:59)
[2018-05-01] MEDS: CHOLECALCIFEROL (VITAMIN D3) 1,000 UNIT TABLET PO SCH ×2 (08:59→20:52)
[2018-05-01] MEDS: amLODIPine BESYLATE 5 MG TABLET PO SCH ×2 (09:00→11:57)
[2018-05-01] MEDS: FOLIC ACID 1 MG TABLET PO SCH (09:00)
[2018-05-01] MEDS: FLUTICASONE 50MCG/NASAL SPRAY 16GM BOTTLE. NS SCH (09:00)
[2018-05-01] MEDS: MAGNESIUM OXIDE 400 MG TABLET PO SCH ×3 (09:00→20:53)
[2018-05-01] MEDS: FUROSEMIDE 40 MG/4 ML VIAL IVP SCH (09:00)
[2018-05-01] MEDS: KETOTIFEN FUMARATE 0.025% OPHT SOLUTION BOTTLE. OU SCH ×2 (09:00→20:50)
[2018-05-01] MEDS: AZITHROMYCIN 250 MG TABLET. PO SCH (09:01)
[2018-05-01] MEDS: GABAPENTIN 300 MG CAPSULE. PO SCH ×2 (09:37→20:53)
[2018-05-01] MEDS: BUDESONIDE 0.5 MG/2 ML NEBU NEB SCH ×2 (09:38→21:10)
--- NOTE | 2018-05-01 10:32 | PDOC2 ---
CONSULT Date of Admission DATE: 05/01/18 TIME: 10:09 Reason for Consult: cp, HTN Problem List Problems Medical Problems: (1) Hypoxia Status: Acute History of Present Illness Ms Arthur is a 62-year-old female previously seen earlier this month for atypical chest pain. She presented to the ED with complaints of severe shortness of breath which woke her from sleep. She also reported nausea, vomiting, diarrhea and urinary incontinence. She was apparently confused as well. She normally uses BiPAP at night and 2 liters oxygen as needed but is currently out of Oxygen tanks. She normally follows at the [place] with Keisha Vinson [facility]. In the ED she was found to be tachycardic, hypoxic and in obvious respiratory distress. She was found to have an elevated d dimer and CT chest is planned. She was admitted for IVabx and steroids, and consult was called for HTN, CP. She is currently resting quietly, in no distress on room air. She reports feeling much better, denies chest pain, palpitations, congestive symptoms or syncope. She does report some lower extremity edema. 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 Family History: Coronary Artery Disease Social History + smoking, occasional marijuana, no significant ETOH Current Medications Current Medications Aspirin (Children'S Aspirin) 324 mg 1X ONCE PO Last administered on at 04:52; Start 04/29/18 at 04:15; Stop 04/29/18 at 05:20; Status DC Lactated Ringer's 1,000 ml @ 100 mls/hr Q10H IV Last administered on at 04:53; Start 04/29/18 at 04:08; Stop 04/29/18 at 14:07; Status DC Methylprednisolone Sodium Succinate (SOLU-Medrol 125MG VIAL) 125 mg 1X ONCE IV Last administered on 04/29/18at 04:53; Start 04/29/18 at 04:15; Stop at 05:23; Status DC Albuterol/ Ipratropium (Duoneb) 3 ml 1X ONCE NEB Last administered on at 04:50; Start 04/29/18 at 04:15; Stop 04/29/18 at 05:22; Status DC Enoxaparin Sodium (Lovenox 100mg Syringe) 90 mg 1X ONCE SQ Last administered on 04/29/18at 04:52; Start 04/29/18 at 04:30; Stop 04/29/18 at 05:22; Status DC Ceftriaxone Sodium 1 gm/ Sodium Chloride 50 ml @ 100 mls/hr 1X ONCE IV Last administered on 04/29/18at 04:52; Start 04/29/18 at 04:45; Stop 04/29/18 at 05 :25; Status DC Azithromycin (Zithromax) 500 mg 1X ONCE PO Last administered on 04/29/18at 04: 51; Start 04/29/18 at 04:45; Stop 04/29/18 at 05:20; Status DC Ondansetron HCl (Zofran) 4 mg PRN Q4HRS PRN IV NAUSEA/VOMITING; Start at 05:00; Stop 04/30/18 at 04:59; Status DC Morphine Sulfate (Morphine 2mg Syringe) 2 mg PRN Q2HR PRN IV PAIN; Start 04/29 at 05:00; Stop 04/30/18 at 04:59; Status DC Albuterol/ Ipratropium (Duoneb) 3 ml RTQID NEB Last administered on 04/29/18at 16:41; Start 04/29/18 at 08:00; Stop 04/30/18 at 07:59; Status DC Ceftriaxone Sodium 1 gm/ Sodium Chloride 50 ml @ 100 mls/hr DAILY IV ; Start 04/29/18 at 09:00; Status UNV Azithromycin (Zithromax) 250 mg DAILY PO Last administered on 05/01/18at 09:01 ; Start 04/30/18 at 09:00 Enoxaparin Sodium (Lovenox 100mg Syringe) 90 mg BID SQ Last administered on at 08:58; Start 04/29/18 at 21:00 Methylprednisolone Sodium Succinate (SOLU-Medrol 125MG VIAL) 125 mg DAILY IV ; Start 04/30/18 at 09:00; Stop 04/30/18 at 09:00; Status DC Aspirin (Children'S Aspirin) 81 mg DAILY PO Last administered on 04/30/18at 08: 27; Start 04/29/18 at 09:00 Ceftriaxone Sodium (Rocephin) 1 gm Q24H IVP Last administered on 05/01/18at 06: 21; Start 04/30/18 at 05:00 Potassium Chloride (KCl Oral Soln) 40 meq 1X ONCE PO Last administered on at 07:07; Start 04/29/18 at 06:00; Stop 04/29/18 at 06:01; Status DC Magnesium Sulfate 50 ml @ 25 mls/hr 1X ONCE IV Last administered on at 07:08; Start 04/29/18 at 06:00; Stop 04/29/18 at 08:00; Status DC Influenza Virus Vaccine (Afluria Trivalent [id number] Syringe) 0.5 ml ONCE ONCE VAX IM Last administered on 04/30/18at 08:34; Start 04/30/18 at 09:00; Stop 04/30/18 at 09:01; Status DC Albuterol Sulfate (Ventolin Hfa Inhaler) 2 puff PRN QID PRN INH SHORTNESS OF BREATH; Start 04/29/18 at 14:15; Status UNV Clonidine HCl (Catapres) 0.1 mg QHS PO Last administered on 04/30/18at 20:36; Start 04/29/18 at 21:00 Estrogens Conjugated (Premarin) 0.5 mg QMTH PO ; Start 05/01/18 at 16:00; Status UNV Ferrous Sulfate (Feosol) 325 mg DAILY PO Last administered on 05/01/18at 08:59 ; Start 04/30/18 at 09:00 Gabapentin (Neurontin) 900 mg BID PO Last administered on 05/01/18at 09:37; Start 04/29/18 at 21:00 Levothyroxine Sodium (Synthroid) 75 mcg DAILY06 PO Last administered on at 06:21; Start 04/30/18 at 06:00 Mirtazapine (Remeron) 30 mg QHS PO Last administered on 04/30/18at 20:38; Start 04/29/18 at 21:00 Oxybutynin Chloride (Ditropan) 5 mg DAILY PO Last administered on 05/01/18 08 :59; Start 04/30/18 at 09:00 Promethazine HCl (Phenergan Supp) 25 mg PRN Q6HRS PRN [place] NAUSEA/VOMITING; Start 04/29/18 at 14:15 Amlodipine Besylate (Norvasc) 5 mg DAILY PO Last administered on 04/30/18at 08: 28; Start 04/30/18 at 09:00 Aspirin (Aspirin Enteric Coated) 162 mg DAILY PO Last administered on 08:59; Start 04/30/18 at 08:00 Non-Formulary Medication (Budesonide/ Formoterol Fumarate (Symbicort 160-4.5 Mcg Inhaler)) 2 puff BID IH ; Start 04/29/18 at 21:00; Status UNV Vitamin D (Vitamin D3) 5,000 unit BID PO Last administered on 05/01/18 08:59 ; Start 04/29/18 at 21:00 Non-Formulary Medication (Ciprofloxacin Hcl (Cipro)) 1 tab BID PO ; Start 04/29 at 21:00; Status UNV Fluoxetine HCl (PROzac) 40 mg DAILY PO Last administered on 05/01/18 08:58; Start 04/30/18 at 09:00 Fluticasone Propionate (Flonase) 2 spray DAILY NS Last administered on 09:00; Start 04/30/18 at 09:00 Folic Acid (Folic Acid) 1 mg DAILY PO Last administered on 05/01/18at 09:00; Start 04/30/18 at 09:00 Furosemide (Lasix) 40 mg DAILY PO ; Start 04/30/18 at 09:00; Stop 04/30/18 at 09:00; Status DC Ketotifen Fumarate (Zaditor) 1 drop BID OU Last administered on 05/01/18at 09: 00; Start 04/29/18 at 21:00 Lactobacillus Rhamnosus (Culturelle) 1 cap BID PO Last administered on 08:58; Start 04/29/18 at 21:00 Morphine Sulfate (Ms Contin) 60 mg PRN Q8HRS PRN PO PAIN Last administered on 04/30/18at 19:46; Start 04/29/18 at 16:00 Ondansetron HCl (Zofran Odt) 4 mg PRN QID PRN PO NAUSEA/VOMITING; Start at 14:45 Pantoprazole Sodium (Protonix) 40 mg BIDBFRMEAL PO Last administered on at 08:20; Start 04/29/18 at 16:30 Phenylephrine/ Shark Liver Oil (Preparation H) 1 supp PRN QHS PRN OH RECTAL PAIN; Start 04/29/18 at 15:00 Simvastatin (Zocor) 20 mg HS PO Last administered on 04/30/18at 20:36; Start 04/29/18 at 21:00 Sumatriptan Succinate (Imitrex) 50 mg PRN Q2HR PRN PO MIGRAINE HEADACHE; Start 04/29/18 at 15:00 Potassium Chloride (Klor-Con) 40 meq 1X ONCE PO Last administered on at 15:44; Start 04/29/18 at 15:00; Stop 04/29/18 at 15:04; Status DC Potassium Chloride (Klor-Con) 20 meq DAILYWBKFT PO Last administered on at 08:27; Start 04/30/18 at 08:00; Stop 04/30/18 at 10:56; Status DC Magnesium Oxide (Magnesium Oxide) 400 mg TID PO Last administered on at 09:00; Start 04/29/18 at 21:00 Albuterol Sulfate (Ventolin) 2.5 mg PRN Q6HRS PRN NEB SHORTNESS OF BREATH; Start 04/29/18 at 15:15 Albuterol Sulfate (Ventolin) 2.5 mg RTQID NEB Last administered on 05/01/18at 05:05; Start 04/29/18 at 16:00 Budesonide (Pulmicort) 0.5 mg RTBID NEB Last administered on 05/01/18at 09:38; Start 04/29/18 at 20:00 Methylprednisolone Sodium Succinate (SOLU-Medrol 40MG VIAL) 40 mg BID IV Last administered on 05/01/18at 08:58; Start 04/29/18 at 21:00 Oxycodone HCl (Roxicodone) 5 mg PRN Q6HRS PRN PO PAIN Last administered on at 18:13; Start 04/29/18 at 16:00 Furosemide (Lasix) 40 mg 1X ONCE IVP Last administered on 04/30/18at 12:31; Start 04/30/18 at 11:00; Stop 04/30/18 at 11:01; Status DC Furosemide (Lasix) 40 mg DAILY IVP Last administered on 05/01/18at 09:00; Start 05/01/18 at 09:00 Potassium Chloride (Klor-Con) 20 meq TID PO Last administered on 05/01/18at 08: 58; Start 04/30/18 at 14:00 Insulin Human Lispro (HumaLOG) 0-5 UNITS TIDWMEALS SQ Last administered on at 08:22; Start 04/30/18 at 17:00 Dextrose 12.5 gm PRN Q15MIN PRN IV SEE COMMENTS; Start 04/30/18 at 13:00 Active Scripts Active Promethegan (Promethazine Hcl) 25 Mg Supp.rect 25 Mg [place] PRN Q6HRS PRN 5 Days Zofran Odt (Ondansetron) 8 Mg Tab.rapdis 4 Mg PO QID PRN Reported Preparation H Suppository (Phenylephrine Hcl/[place] Butter) 1 Each Supp.rect 1 Each RC PRN QHS PRN Proair Hfa Inhaler (Albuterol Sulfate) 8.5 Gm Hfa.aer.ad 2 Puff INH PRN QID PRN Simvastatin 20 Mg Tablet 20 Mg PO HS Pantoprazole Sodium 40 Mg Tablet.dr 40 Mg PO BIDBFRMEAL Vitamin D3 (Cholecalciferol (Vitamin D3)) 5,000 Unit Tablet 5,000 Unit PO BID Gabapentin 300 Mg Capsule 900 Mg PO BID Furosemide 40 Mg Tablet 40 Mg PO DAILY Imitrex (Sumatriptan Succinate) 50 Mg Tablet 50 Mg PO PRN PRN Oxybutynin Chloride 5 Mg Tablet 5 Mg PO DAILY Morphine Sulfate 30 Mg Tablet 60 Mg PO PRN Q8HRS PRN Remeron (Mirtazapine) 30 Mg Tablet 30 Mg PO QHS Levothyroxine Sodium 75 Mcg Tablet 75 Mcg PO DAILY07 Culturelle (Lactobacillus Rhamnosus Gg) 1 Each Capsule 2 Each PO TID Zaditor (Ketotifen Fumarate) 5 Ml Drops 1 Drop EACHEYE BID Folic Acid 1 Mg Tablet 1 Tab PO DAILY Fluticasone Propionate Nasal Mcbee (Fluticasone Propionate) 16 Gm Mcbee.susp 2 Mcbee NS DAILY Fluoxetine Hcl 40 Mg Capsule 40 Mg PO DAILY Ferrous Sulfate 325 Mg Tablet 325 Mg PO DAILY Premarin (Estrogens, Conjugated) 0.625 Mg Tablet 0.5 Mg PO QMTH Clonidine Hcl 0.1 Mg Tablet 0.1 Mg PO QHS Symbicort 160-4.5 Mcg Inhaler (Budesonide/Formoterol Fumarate) 10.2 Gm Hfa.aer.ad 2 Puff IH BID Aspirin Ec (Aspirin) 81 Mg Tablet.dr 2 Tab PO DAILY Amlodipine Besylate 5 Mg Tablet 5 Mg PO DAILY Allergies: Coded Allergies: adhesive (Verified Allergy, Severe, Hives, 04/29/18) latex (Verified Allergy, Severe, 04/29/18) Review of System as per HPI or negative General: Alert, Oriented X3, Cooperative, No acute distress HEENT: Atraumatic, EOMI Lungs: Other (decreased throughout, no crackles, rhonchi or wheezing) Heart: Normal S1, Normal S2, Other (no gallops, clicks or rubs) Abdomen: Normal bowel sounds, Soft, No tenderness Extremities: No cyanosis, Other (+1 edema) Neuro: Normal speech, Strength at 5/5 X4 ext Psych/Mental Status: Mental status NL, Mood NL VITALS Vital Signs Date Time Temp Pulse Resp B/P (MAP) Pulse Ox O2 Delivery O2 Flow Rate FiO2 05/01/18 05:55 97.5 80 20 100/66 (77) 94 Nasal Cannula 2.0 Labs Laboratory Tests Test 04/29/18 18:15 04/30/18 06:09 04/30/18 14:43 04/30/18 16:31 Sodium Level 136 mmol/L (136-145) 140 mmol/L (136-145) Potassium Level 3.9 mmol/L (3.5-5.1) 3.8 mmol/L (3.5-5.1) Chloride Level 103 mmol/L (98-107) 104 mmol/L (98-107) Carbon Dioxide Level 20 mmol/L (21-32) 26 mmol/L (21-32) Anion Gap 13 (6-14) 10 (6-14) Blood Urea Nitrogen 16 mg/dL (7-20) 16 mg/dL (7-20) Creatinine 1.2 mg/dL (0.6-1.0) 1.1 mg/dL (0.6-1.0) Estimated GFR (Cockcroft-Gault) 45.7 50.5 Glucose Level 257 mg/dL (70-99) 221 mg/dL (70-99) Calcium Level 8.7 mg/dL (8.5-10.1) 8.4 mg/dL (8.5-10.1) White Blood Count 10.3 x10^3/uL (4.0-11.0) Red Blood Count 4.13 x10^6/uL (3.50-5.40) Hemoglobin 11.0 g/dL (12.0-15.5) Hematocrit 33.4 % (36.0-47.0) Mean Corpuscular Volume 81 fL (79-100) Mean Corpuscular Hemoglobin 27 pg (25-35) Mean Corpuscular Hemoglobin Concent 33 g/dL (31-37) Red Cell Distribution Width 16.2 % (11.5-14.5) Platelet Count 198 x10^3/uL (140-400) Neutrophils (%) (Auto) 91 % (31-73) Lymphocytes (%) (Auto) 5 % (24-48) Monocytes (%) (Auto) 4 % (0-9) Eosinophils (%) (Auto) 0 % (0-3) Basophils (%) (Auto) 0 % (0-3) Neutrophils # (Auto) 9.4 x10^3uL (1.8-7.7) Lymphocytes # (Auto) 0.5 x10^3/uL (1.0-4.8) Monocytes # (Auto) 0.4 x10^3/uL (0.0-1.1) Eosinophils # (Auto) 0.0 x10^3/uL (0.0-0.7) Basophils # (Auto) 0.0 x10^3/uL (0.0-0.2) BUN/Creatinine Ratio 15 (6-20) Total Bilirubin 0.1 mg/dL (0.2-1.0) Aspartate Amino Transf (AST/SGOT) 15 U/L (15-37) Alanine Aminotransferase (ALT/SGPT) 23 U/L (14-59) Alkaline Phosphatase 83 U/L (46-116) RY-Lil-R-Type Natriuretic Peptide 3078 pg/mL (0-124) Total Protein 6.2 g/dL (6.4-8.2) Albumin 2.6 g/dL (3.4-5.0) Albumin/Globulin Ratio 0.7 (1.0-1.7) Glucose (Fingerstick) 222 mg/dL (70-99) 211 mg/dL (70-99) Test 04/30/18 20:31 05/01/18 05:58 05/01/18 07:28 Glucose (Fingerstick) 193 mg/dL (70-99) 155 mg/dL (70-99) White Blood Count 10.3 x10^3/uL (4.0-11.0) Red Blood Count 4.09 x10^6/uL (3.50-5.40) Hemoglobin 10.9 g/dL (12.0-15.5) Hematocrit 33.1 % (36.0-47.0) Mean Corpuscular Volume 81 fL (79-100) Mean Corpuscular Hemoglobin 27 pg (25-35) Mean Corpuscular Hemoglobin Concent 33 g/dL (31-37) Red Cell Distribution Width 16.6 % (11.5-14.5) Platelet Count 237 x10^3/uL (140-400) Neutrophils (%) (Auto) 89 % (31-73) Lymphocytes (%) (Auto) 7 % (24-48) Monocytes (%) (Auto) 4 % (0-9) Eosinophils (%) (Auto) 0 % (0-3) Basophils (%) (Auto) 0 % (0-3) Neutrophils # (Auto) 9.2 x10^3uL (1.8-7.7) Lymphocytes # (Auto) 0.7 x10^3/uL (1.0-4.8) Monocytes # (Auto) 0.4 x10^3/uL (0.0-1.1) Eosinophils # (Auto) 0.0 x10^3/uL (0.0-0.7) Basophils # (Auto) 0.0 x10^3/uL (0.0-0.2) Sodium Level 139 mmol/L (136-145) Potassium Level 4.6 mmol/L (3.5-5.1) Chloride Level 105 mmol/L (98-107) Carbon Dioxide Level 28 mmol/L (21-32) Anion Gap 6 (6-14) Blood Urea Nitrogen 19 mg/dL (7-20) Creatinine 1.1 mg/dL (0.6-1.0) Estimated GFR (Cockcroft-Gault) 50.5 Glucose Level 185 mg/dL (70-99) Calcium Level 7.8 mg/dL (8.5-10.1) Magnesium Level 2.0 mg/dL (1.8-2.4) Images CXR- IMPRESSION: Bibasilar opacities (left greater than right) may be seen with atelectasis or consolidation. Given regions of linear nature, favor predominant component of atelectasis. LE US - IMPRESSION: No evidence of bilateral lower extremity DVT. Assessment/Plan 1. Acute hypoxic respiratory failure, multifactorial 2. PNA/COPD 3. elevated d dimer 4. HTN 5. Renal insufficiency No chest pain by patient report, prior eval for atypical chest pain on 04/20. Will check echo for LV function and plan for outpatient MPI as previously planned. Mgmt of pulmonary status per PCP. HTN well controlled at this point. Await echo and CT. YUNIER NOEL WEB PUBLISHER May 01, 2018 10:32
[2018-05-01] MEDS ORDERED: IOHEXOL 300 MG/ML 75 ML VIAL. IV ONE (11:00)
[2018-05-01 11:01] VITALS: BP 119/79
[2018-05-01] MEDS: MORPHINE ER 30 MG TABLET.ER PO PRN ×2 (12:53→20:52)
--- NOTE | 2018-05-01 13:31 | CARD ---
MR#: [id number] Date of Study: 05/01/2018 Ordering Physician: YUNIER NOEL, Referring Physician: BRUCE BENZ Tech: Tracey Kenney RDCS APPROVED REPORT EXAM: Two-dimensional and M-mode echocardiogram with Doppler and color Doppler. Other Information Quality : Good INDICATION Chest Pain 2D DIMENSIONS RVDd2.0 (2.9-3.5cm)Left Atrium(2D)3.9 (1.6-4.0cm) IVSd1.0 (0.7-1.1cm)Aortic Root(2D)2.7 (2.0-3.7cm) LVDd4.6 (3.9-5.9cm)PWd1.1 (0.7-1.1cm) LVDs2.9 (2.5-4.0cm)FS (%) 37.1 % SV65.6 mlLVEF(%)65.1 (>50%) Aortic Valve AoV Peak Maxi.141.6cm/sAoV VTI27.1cm AO Peak GR.8.0mmHgAO Mean GR.5mmHg MONIE (VTI)4.41cm2 Mitral Valve MV E Tnsexvzj401.6cm/sMV DECEL [id number] MV A Iystdfek854.9cm/sE/A Ratio1.3 Tricuspid Valve TR P. [id number]/sRAP [id number] TR Peak Gr.[id number] LEFT VENTRICLE The left ventricle is normal size. There is normal left ventricular wall thickness. The left ventricu lar systolic function is normal and the ejection fraction is within normal range. The Ejection Fracti on is 60-65%. There is normal LV segmental wall motion. Transmitral Doppler flow pattern is Grade I-a bnormal relaxation pattern. RIGHT VENTRICLE The right ventricle is normal size. The right ventricular systolic function is normal. ATRIA The left atrium size is normal. The right atrium size is normal. The interatrial septum is intact wit h no evidence for an atrial septal defect or patent foramen ovale as noted on 2-D or Doppler imaging. AORTIC VALVE The aortic valve is calcified but opens well. Doppler and Color Flow revealed no significant aortic r egurgitation. There is no significant aortic valvular stenosis. MITRAL VALVE The mitral valve is calcified but opens well. There is no evidence of mitral valve prolapse. There is no mitral valve stenosis. Doppler and Color-flow revealed trace to mild mitral regurgitation. TRICUSPID VALVE The tricuspid valve is normal in structure and function. Doppler and Color Flow revealed trace tricus pid regurgitation. The PA pressure was estimated at 30 mmHg. There is no tricuspid valve stenosis. PULMONIC VALVE The pulmonic valve is not well visualized. Doppler and Color Flow revealed trace pulmonic valvular re gurgitation. There is no pulmonic valvular stenosis. GREAT VESSELS The aortic root is normal in size. The ascending aorta is normal in size. The IVC is normal in size a nd collapses >50% with inspiration. PERICARDIAL EFFUSION There is no evidence of significant pericardial effusion. Critical Notification Critical Value: No <Conclusion> The left ventricular systolic function is normal and the ejection fraction is within normal range. Th e Ejection Fraction is 60-65%. There is normal LV segmental wall motion. No significant valvular disease. Signed by : Davey Wilks, Electronically Approved : 05/01/2018 13:29:38
--- NOTE | 2018-05-01 14:45 | RAD ---
CTA of the chest with contrast, 05/01/2018: HISTORY: Elevated d-dimer, hypoxia, pneumonia Multidetector CT imaging was performed following an IV bolus injection of iodinated contrast material. Multiplanar reconstructions were produced including coronal and sagittal MIP images. There is a filling defect in the inferior aspect of the right lower lobe pulmonary artery extending into segmental branches as best seen on axial images 52 through 58 of series #3. There is a couple of other smaller separate subsegmental pulmonary arterial filling defects in the right lower lobe. There are questionable small nonocclusive filling defects at the bifurcation of two segmental pulmonary arteries in the left upper lobe as seen on coronal image 63 of series #6. No other definite pulmonary emboli are seen. There is mild calcific plaquing of the thoracic aorta without evidence of aneurysm. The heart size is normal. No mediastinal or hilar adenopathy is seen. There are streaky peripheral parenchymal opacities in both lower lobes suggesting atelectasis and/or scarring, greatest in the left base. This has worsened slightly since 04/22/2018. There are minimal nonspecific patchy groundglass opacities in both upper lobes. No significant pleural fluid is evident. IMPRESSION: 1. Small pulmonary emboli involving primarily the right lower lobe. 2. Increasing mild bibasilar atelectasis. Note: The findings were called to the patient's nurse on the floor at 2:42 PM on 05/01/2018. PQRS Compliance Statement: One or more of the following individualized dose reduction techniques were utilized for this examination: 1. Automated exposure control 2. Adjustment of the mA and/or kV according to patient size 3. Use of iterative reconstruction technique Electronically signed by: Brian Norris MD (05/01/2018 2:42 PM) [place]
[2018-05-01 14:57] VITALS: BP 146/69
[2018-05-01] MEDS ORDERED: ESTROGENS, CONJUGATED 0.625 MG TABLET PO SCH (16:00)
--- NOTE | 2018-05-01 19:04 | PN ---
DATE: 05/01/2018 SUBJECTIVE: The patient is resting, slightly propped up in bed, in no apparent distress. She has had no further episodes of nausea and vomiting. Denied any shortness of breath. OBJECTIVE: GENERAL: When I examined her this morning, she looked well and was clearly in no apparent respiratory distress, slightly pale. No jaundice, cyanosis or thyromegaly. No jugular venous distension. Bilateral lower limb edema, much improved than yesterday. VITAL SIGNS: Her heart rate was 80, blood pressure was 100/66, temperature was 97.5, respiratory rate 20, and oxygen saturation was 94% on 2 liters of oxygen. HEAD, EYES, EARS, NOSE AND THROAT: Showed normocephalic, atraumatic. NECK: Supple. HEART: Showed normal first and second heart sounds with no gallop, rub or murmur. CHEST: Shows central trachea, equal bilateral expansion, air entry, vesicular sounds with crepitation bilateral. No rhonchi. ABDOMEN: Distended, soft, nontender. NEUROLOGIC: She is awake, alert, responding appropriately. All cranial nerves intact. She moves extremities without difficulty. She ambulates without assistance. Her intake over the last 24 hours was 1560, output was 3750. LABORATORY DATA: This morning showed serum sodium 139, potassium 4.6, chloride 105, bicarbonate 28, anion gap of 6, BUN 19, creatinine 1.1, estimated GFR was 50 mL per minute. Her glucose 185, calcium 7.8, magnesium was 2. White cell count was 10,300, hemoglobin 11, hematocrit 33, MCV 81 and platelet count 237,000. ASSESSMENT: 1. Bilateral lower lobe infiltrate. 2. Chronic obstructive pulmonary disease exacerbation. 3. Acute hypoxic respiratory failure. 4. Type 2 diabetes mellitus. 5. Hypertension. 6. Hyperlipidemia. 7. Chronic kidney disease. 8. Urinary retention. 9. Elevated D-dimer with acute hypoxic respiratory failure. PLAN: 1. My plan is to continue IV antibiotic in the form of Rocephin and Zithromax for community-acquired pneumonia. 2. Continue with steroids and bronchodilators. Given marked swelling of her lower extremity, I started her on Lasix. I will arrange for her CT angio of the chest to rule out the possibility of pulmonary embolism given the degree of hypoxia when she came in and continue with physical and occupational therapy. I will keep the Chan catheter as she is on Lasix now and she has tendency to retain urine. BRUCE BENZ MD DR: JACQUELIN/junie JOB#: [id number] / [id number]
[2018-05-01 20:00] VITALS: BP 135/70
[2018-05-01] MEDS: cloNIDine HCL 0.1 MG TABLET PO SCH (20:51)
[2018-05-01] MEDS: MIRTAZAPINE 30 MG TABLET PO SCH (20:52)
[2018-05-01] MEDS: SIMVASTATIN 20 MG TABLET PO SCH (20:53)
[2018-05-01 23:16] VITALS: BP 128/67
[2018-05-02] MEDS: cefTRIAXone IV Push 1 GM VIAL. IVP SCH (05:22)
[2018-05-02] MEDS: LEVOTHYROXINE 75 MCG TABLET PO SCH (05:22)
[2018-05-02] MEDS: ALBUTEROL SULFATE 2.5 MG/3 ML NEBU. NEB SCH ×2 (05:30→09:24)
[2018-05-02 05:55] VITALS: BP 126/60
[2018-05-02] MEDS: PANTOPRAZOLE 40 MG TABLET. PO SCH ×2 (07:39→17:46)
[2018-05-02] MEDS: BUDESONIDE 0.5 MG/2 ML NEBU NEB SCH (07:40)
[2018-05-02] MEDS: FLUTICASONE 50MCG/NASAL SPRAY 16GM BOTTLE. NS SCH (08:37)
[2018-05-02] MEDS: ENOXAPARIN ** NOTE DOSE ** SYRINGE SQ SCH (08:37)
[2018-05-02] MEDS: FERROUS SULFATE 325 MG TABLET. PO SCH (08:38)
[2018-05-02] MEDS: CHOLECALCIFEROL (VITAMIN D3) 1,000 UNIT TABLET PO SCH ×2 (08:38→20:17)
[2018-05-02] MEDS: GABAPENTIN 300 MG CAPSULE. PO SCH ×2 (08:38→20:16)
[2018-05-02] MEDS: LACTOBACILLUS RHAMNOSUS GG 1 CAPSULE. PO SCH ×2 (08:38→20:24)
[2018-05-02] MEDS: MAGNESIUM OXIDE 400 MG TABLET PO SCH ×3 (08:38→20:19)
[2018-05-02] MEDS: KETOTIFEN FUMARATE 0.025% OPHT SOLUTION BOTTLE. OU SCH ×2 (08:38→20:16)
[2018-05-02] MEDS: FLUoxetine HCL 20 MG CAPSULE PO SCH (08:38)
[2018-05-02] MEDS: ASPIRIN ENTERIC COATED 81 MG TABLET.DR. PO SCH (08:39)
[2018-05-02] MEDS: FOLIC ACID 1 MG TABLET PO SCH (08:39)
[2018-05-02] MEDS: AZITHROMYCIN 250 MG TABLET. PO SCH (08:39)
[2018-05-02] MEDS: FUROSEMIDE 40 MG/4 ML VIAL IVP SCH (08:39)
[2018-05-02] MEDS: OXYBUTYNIN CHLORIDE 5 MG TABLET PO SCH (08:39)
[2018-05-02] MEDS: methylPREDNISolone SOD SUCC PF 40 MG/ML VIAL. IV SCH (08:39)
[2018-05-02] MEDS: POTASSIUM CHLORIDE 20 MEQ TABLET.ER. PO SCH ×3 (08:39→20:18)
[2018-05-02] MEDS: amLODIPine BESYLATE 5 MG TABLET PO SCH (08:40)
[2018-05-02] MEDS: INSULIN LISPRO 300 UNITS/3 ML INSULN.PEN. SQ SCH ×3 (08:48→17:00)
--- NOTE | 2018-05-02 08:58 | PDOC ---
PROGRESS NOTES Diagnosis Problem Problems Medical Problems: (1) Hypoxia Status: Acute Assessment Problems Medical Problems: (1) Hypoxia Status: Acute 1. Acute hypoxic respiratory failure, multifactorial - on abx, resp tx, steroids, anticoagulation. Mgmt per PCP PNA COPD PE 2. HTN - controlled on current medication 3. atypical CP - outpatient MPI when respiratory status stable. continue aspirin, statin. no beta demi due to pulmonary disease. 4. Renal insufficiency 5. HLD - continue statin, check lipids. Suggest outpatient follow up in 2 - 4 weeks. She would like to follow with [facility]. Subjective breathing better but reports still unable to get around well. continued intermittent chest pain worse with deep inspiration but better. no palpitations , no lightheadedness or syncope. c/o trouble with memory and intermittent confusion Objective Vital Signs Date Time Temp Pulse Resp B/P (MAP) Pulse Ox O2 Delivery O2 Flow Rate FiO2 05/02/18 08:40 66 126/60 05/02/18 05:55 97.9 20 95 Nasal Cannula 2.0 Intake and Output 05/02/18 07:00 Intake Total 1380 ml Output Total 3800 ml Balance -2420 ml Intake Oral 1380 ml Output Urine Total 3800 ml # Bowel Movements 2 Abdomen: Normal bowel sounds, Soft, No tenderness Heart: Normal S1, Normal S2, Other (no gallops, clicks or rubs, no significant murmurs) Extremities: No cyanosis, Other (+edema) General: Alert, Oriented X3, Cooperative, No acute distress HEENT: Atraumatic, EOMI, Mucous membr. moist/pink Lungs: Other (decreased throughout, no crackles, rhonchi or wheezing) Neuro: Normal speech, Strength at 5/5 X4 ext Psych/Mental Status: Mental status NL, Mood NL Review of Relevant I have reviewed the following items yolis (where applicable) has been applied. Labs Laboratory Tests Test 04/30/18 14:43 04/30/18 16:31 04/30/18 20:31 05/01/18 05:58 Glucose (Fingerstick) 222 mg/dL (70-99) 211 mg/dL (70-99) 193 mg/dL (70-99) White Blood Count 10.3 x10^3/uL (4.0-11.0) Red Blood Count 4.09 x10^6/uL (3.50-5.40) Hemoglobin 10.9 g/dL (12.0-15.5) Hematocrit 33.1 % (36.0-47.0) Mean Corpuscular Volume 81 fL (79-100) Mean Corpuscular Hemoglobin 27 pg (25-35) Mean Corpuscular Hemoglobin Concent 33 g/dL (31-37) Red Cell Distribution Width 16.6 % (11.5-14.5) Platelet Count 237 x10^3/uL (140-400) Neutrophils (%) (Auto) 89 % (31-73) Lymphocytes (%) (Auto) 7 % (24-48) Monocytes (%) (Auto) 4 % (0-9) Eosinophils (%) (Auto) 0 % (0-3) Basophils (%) (Auto) 0 % (0-3) Neutrophils # (Auto) 9.2 x10^3uL (1.8-7.7) Lymphocytes # (Auto) 0.7 x10^3/uL (1.0-4.8) Monocytes # (Auto) 0.4 x10^3/uL (0.0-1.1) Eosinophils # (Auto) 0.0 x10^3/uL (0.0-0.7) Basophils # (Auto) 0.0 x10^3/uL (0.0-0.2) Sodium Level 139 mmol/L (136-145) Potassium Level 4.6 mmol/L (3.5-5.1) Chloride Level 105 mmol/L (98-107) Carbon Dioxide Level 28 mmol/L (21-32) Anion Gap 6 (6-14) Blood Urea Nitrogen 19 mg/dL (7-20) Creatinine 1.1 mg/dL (0.6-1.0) Estimated GFR (Cockcroft-Gault) 50.5 Glucose Level 185 mg/dL (70-99) Calcium Level 7.8 mg/dL (8.5-10.1) Magnesium Level 2.0 mg/dL (1.8-2.4) Test 05/01/18 07:28 05/01/18 11:51 05/01/18 16:50 05/01/18 20:21 Glucose (Fingerstick) 155 mg/dL (70-99) 129 mg/dL (70-99) 198 mg/dL (70-99) 189 mg/dL (70-99) Microbiology 04/29/18 Blood Culture - Preliminary, Resulted NO GROWTH AFTER 3 DAYS... Medications Current Medications Aspirin (Children'S Aspirin) 324 mg 1X ONCE PO Last administered on at 04:52; Start 04/29/18 at 04:15; Stop 04/29/18 at 05:20; Status DC Lactated Ringer's 1,000 ml @ 100 mls/hr Q10H IV Last administered on at 04:53; Start 04/29/18 at 04:08; Stop 04/29/18 at 14:07; Status DC Methylprednisolone Sodium Succinate (SOLU-Medrol 125MG VIAL) 125 mg 1X ONCE IV Last administered on 04/29/18at 04:53; Start 04/29/18 at 04:15; Stop at 05:23; Status DC Albuterol/ Ipratropium (Duoneb) 3 ml 1X ONCE NEB Last administered on at 04:50; Start 04/29/18 at 04:15; Stop 04/29/18 at 05:22; Status DC Enoxaparin Sodium (Lovenox 100mg Syringe) 90 mg 1X ONCE SQ Last administered on 04/29/18at 04:52; Start 04/29/18 at 04:30; Stop 04/29/18 at 05:22; Status DC Ceftriaxone Sodium 1 gm/ Sodium Chloride 50 ml @ 100 mls/hr 1X ONCE IV Last administered on 04/29/18at 04:52; Start 04/29/18 at 04:45; Stop 04/29/18 at 05 :25; Status DC Azithromycin (Zithromax) 500 mg 1X ONCE PO Last administered on 04/29/18at 04: 51; Start 04/29/18 at 04:45; Stop 04/29/18 at 05:20; Status DC Ondansetron HCl (Zofran) 4 mg PRN Q4HRS PRN IV NAUSEA/VOMITING; Start at 05:00; Stop 04/30/18 at 04:59; Status DC Morphine Sulfate (Morphine 2mg Syringe) 2 mg PRN Q2HR PRN IV PAIN; Start 04/29 at 05:00; Stop 04/30/18 at 04:59; Status DC Albuterol/ Ipratropium (Duoneb) 3 ml RTQID NEB Last administered on 04/29/18at 16:41; Start 04/29/18 at 08:00; Stop 04/30/18 at 07:59; Status DC Ceftriaxone Sodium 1 gm/ Sodium Chloride 50 ml @ 100 mls/hr DAILY IV ; Start 04/29/18 at 09:00; Status UNV Azithromycin (Zithromax) 250 mg DAILY PO Last administered on 05/02/18at 08:39 ; Start 04/30/18 at 09:00 Enoxaparin Sodium (Lovenox 100mg Syringe) 90 mg BID SQ Last administered on at 08:37; Start 04/29/18 at 21:00 Methylprednisolone Sodium Succinate (SOLU-Medrol 125MG VIAL) 125 mg DAILY IV ; Start 04/30/18 at 09:00; Stop 04/30/18 at 09:00; Status DC Aspirin (Children'S Aspirin) 81 mg DAILY PO Last administered on 04/30/18at 08: 27; Start 04/29/18 at 09:00; Stop 05/01/18 at 11:45; Status DC Ceftriaxone Sodium (Rocephin) 1 gm Q24H IVP Last administered on 05/02/18at 05: 22; Start 04/30/18 at 05:00 Potassium Chloride (KCl Oral Soln) 40 meq 1X ONCE PO Last administered on at 07:07; Start 04/29/18 at 06:00; Stop 04/29/18 at 06:01; Status DC Magnesium Sulfate 50 ml @ 25 mls/hr 1X ONCE IV Last administered on at 07:08; Start 04/29/18 at 06:00; Stop 04/29/18 at 08:00; Status DC Influenza Virus Vaccine (Afluria Trivalent [id number] Syringe) 0.5 ml ONCE ONCE VAX IM Last administered on 04/30/18at 08:34; Start 04/30/18 at 09:00; Stop 04/30/18 at 09:01; Status DC Albuterol Sulfate (Ventolin Hfa Inhaler) 2 puff PRN QID PRN INH SHORTNESS OF BREATH; Start 04/29/18 at 14:15; Status UNV Clonidine HCl (Catapres) 0.1 mg QHS PO Last administered on 05/01/18 20:51; Start 04/29/18 at 21:00 Estrogens Conjugated (Premarin) 0.5 mg QMTH PO ; Start 05/01/18 at 16:00; Status UNV Ferrous Sulfate (Feosol) 325 mg DAILY PO Last administered on 05/02/18 08:38 ; Start 04/30/18 at 09:00 Gabapentin (Neurontin) 900 mg BID PO Last administered on 05/02/18 08:38; Start 04/29/18 at 21:00 Levothyroxine Sodium (Synthroid) 75 mcg DAILY06 PO Last administered on 05:22; Start 04/30/18 at 06:00 Mirtazapine (Remeron) 30 mg QHS PO Last administered on 05/01/18 20:52; Start 04/29/18 at 21:00 Oxybutynin Chloride (Ditropan) 5 mg DAILY PO Last administered on 05/02/18 08 :39; Start 04/30/18 at 09:00 Promethazine HCl (Phenergan Supp) 25 mg PRN Q6HRS PRN [place] NAUSEA/VOMITING; Start 04/29/18 at 14:15 Amlodipine Besylate (Norvasc) 5 mg DAILY PO Last administered on 05/02/18 08: 40; Start 04/30/18 at 09:00 Aspirin (Aspirin Enteric Coated) 162 mg DAILY PO Last administered on 08:39; Start 04/30/18 at 08:00 Non-Formulary Medication (Budesonide/ Formoterol Fumarate (Symbicort 160-4.5 Mcg Inhaler)) 2 puff BID IH ; Start 04/29/18 at 21:00; Status UNV Vitamin D (Vitamin D3) 5,000 unit BID PO Last administered on 05/02/18 08:38 ; Start 04/29/18 at 21:00 Non-Formulary Medication (Ciprofloxacin Hcl (Cipro)) 1 tab BID PO ; Start 04/29 at 21:00; Status UNV Fluoxetine HCl (PROzac) 40 mg DAILY PO Last administered on 05/02/18 08:38; Start 04/30/18 at 09:00 Fluticasone Propionate (Flonase) 2 spray DAILY NS Last administered on at 08:37; Start 04/30/18 at 09:00 Folic Acid (Folic Acid) 1 mg DAILY PO Last administered on 05/02/18at 08:39; Start 04/30/18 at 09:00 Furosemide (Lasix) 40 mg DAILY PO ; Start 04/30/18 at 09:00; Stop 04/30/18 at 09:00; Status DC Ketotifen Fumarate (Zaditor) 1 drop BID OU Last administered on 05/02/18 08: 38; Start 04/29/18 at 21:00 Lactobacillus Rhamnosus (Culturelle) 1 cap BID PO Last administered on 08:38; Start 04/29/18 at 21:00 Morphine Sulfate (Ms Contin) 60 mg PRN Q8HRS PRN PO PAIN Last administered on 05/01/18at 20:52; Start 04/29/18 at 16:00 Ondansetron HCl (Zofran Odt) 4 mg PRN QID PRN PO NAUSEA/VOMITING; Start at 14:45 Pantoprazole Sodium (Protonix) 40 mg BIDBFRMEAL PO Last administered on 07:39; Start 04/29/18 at 16:30 Phenylephrine/ Shark Liver Oil (Preparation H) 1 supp PRN QHS PRN VA RECTAL PAIN; Start 04/29/18 at 15:00 Simvastatin (Zocor) 20 mg HS PO Last administered on 05/01/18at 20:53; Start 04/29/18 at 21:00 Sumatriptan Succinate (Imitrex) 50 mg PRN Q2HR PRN PO MIGRAINE HEADACHE; Start 04/29/18 at 15:00 Potassium Chloride (Klor-Con) 40 meq 1X ONCE PO Last administered on at 15:44; Start 04/29/18 at 15:00; Stop 04/29/18 at 15:04; Status DC Potassium Chloride (Klor-Con) 20 meq DAILYWBKFT PO Last administered on at 08:27; Start 04/30/18 at 08:00; Stop 04/30/18 at 10:56; Status DC Magnesium Oxide (Magnesium Oxide) 400 mg TID PO Last administered on at 08:38; Start 04/29/18 at 21:00 Albuterol Sulfate (Ventolin) 2.5 mg PRN Q6HRS PRN NEB SHORTNESS OF BREATH; Start 04/29/18 at 15:15 Albuterol Sulfate (Ventolin) 2.5 mg RTQID NEB Last administered on 05/02/18at 05:30; Start 04/29/18 at 16:00 Budesonide (Pulmicort) 0.5 mg RTBID NEB Last administered on 05/02/18at 07:40; Start 04/29/18 at 20:00 Methylprednisolone Sodium Succinate (SOLU-Medrol 40MG VIAL) 40 mg BID IV Last administered on 05/02/18at 08:39; Start 04/29/18 at 21:00 Oxycodone HCl (Roxicodone) 5 mg PRN Q6HRS PRN PO PAIN Last administered on at 18:13; Start 04/29/18 at 16:00 Furosemide (Lasix) 40 mg 1X ONCE IVP Last administered on 04/30/18at 12:31; Start 04/30/18 at 11:00; Stop 04/30/18 at 11:01; Status DC Furosemide (Lasix) 40 mg DAILY IVP Last administered on 05/02/18at 08:39; Start 05/01/18 at 09:00 Potassium Chloride (Klor-Con) 20 meq TID PO Last administered on 05/02/18at 08: 39; Start 04/30/18 at 14:00 Insulin Human Lispro (HumaLOG) 0-5 UNITS TIDWMEALS SQ Last administered on at 08:48; Start 04/30/18 at 17:00 Dextrose 12.5 gm PRN Q15MIN PRN IV SEE COMMENTS; Start 04/30/18 at 13:00 Iohexol (Omnipaque 300 Mg/ml) 60 ml 1X ONCE IV Last administered on at 11:49; Start 05/01/18 at 11:00; Stop 05/01/18 at 11:01; Status DC Active Scripts Active Promethegan (Promethazine Hcl) 25 Mg Supp.rect 25 Mg VA PRN Q6HRS PRN 5 Days Zofran Odt (Ondansetron) 8 Mg Tab.rapdis 4 Mg PO QID PRN Reported Preparation H Suppository (Phenylephrine Hcl/[facility] Butter) 1 Each Supp.rect 1 Each RC PRN QHS PRN Proair Hfa Inhaler (Albuterol Sulfate) 8.5 Gm Hfa.aer.ad 2 Puff INH PRN QID PRN Simvastatin 20 Mg Tablet 20 Mg PO HS Pantoprazole Sodium 40 Mg Tablet.dr 40 Mg PO BIDBFRMEAL Vitamin D3 (Cholecalciferol (Vitamin D3)) 5,000 Unit Tablet 5,000 Unit PO BID Gabapentin 300 Mg Capsule 900 Mg PO BID Furosemide 40 Mg Tablet 40 Mg PO DAILY Imitrex (Sumatriptan Succinate) 50 Mg Tablet 50 Mg PO PRN PRN Oxybutynin Chloride 5 Mg Tablet 5 Mg PO DAILY Morphine Sulfate 30 Mg Tablet 60 Mg PO PRN Q8HRS PRN Remeron (Mirtazapine) 30 Mg Tablet 30 Mg PO QHS Levothyroxine Sodium 75 Mcg Tablet 75 Mcg PO DAILY07 Culturelle (Lactobacillus Rhamnosus Gg) 1 Each Capsule 2 Each PO TID Zaditor (Ketotifen Fumarate) 5 Ml Drops 1 Drop EACHEYE BID Folic Acid 1 Mg Tablet 1 Tab PO DAILY Fluticasone Propionate Nasal [place] (Fluticasone Propionate) 16 Gm [place].susp 2 [place] NS DAILY Fluoxetine Hcl 40 Mg Capsule 40 Mg PO DAILY Ferrous Sulfate 325 Mg Tablet 325 Mg PO DAILY Premarin (Estrogens, Conjugated) 0.625 Mg Tablet 0.5 Mg PO QMTH Clonidine Hcl 0.1 Mg Tablet 0.1 Mg PO QHS Symbicort 160-4.5 Mcg Inhaler (Budesonide/Formoterol Fumarate) 10.2 Gm Hfa.aer.ad 2 Puff IH BID Aspirin Ec (Aspirin) 81 Mg Tablet.dr 2 Tab PO DAILY Amlodipine Besylate 5 Mg Tablet 5 Mg PO DAILY Vitals/I & O Vital Sign - Last 24 Hours 05/01/18 05/01/18 05/01/18 05/01/18 11:01 11:57 12:53 14:57 Temp 97.7 98.3 Pulse 87 87 94 Resp 20 18 B/P (MAP) 119/79 (92) 119/79 146/69 (94) Pulse Ox 94 94 90 O2 Delivery Room Air Nasal Cannula Room Air O2 Flow Rate 2.0 05/01/18 05/01/18 05/01/18 05/01/18 16:55 19:35 20:00 20:51 Temp 97.9 Pulse 82 82 Resp 20 B/P (MAP) 135/70 (91) 135/70 Pulse Ox 90 93 O2 Delivery Nasal Cannula Nasal Cannula O2 Flow Rate 2.0 2.0 2.0 05/01/18 05/01/18 05/01/18 05/01/18 20:52 21:13 21:14 23:16 Temp 98.0 Pulse 82 Resp 18 20 B/P (MAP) 128/67 (87) Pulse Ox 97 97 92 O2 Delivery Nasal Cannula Nasal Cannula Nasal Cannula Nasal Cannula O2 Flow Rate 2.0 2.0 2.0 2.0 05/02/18 05/02/18 05/02/18 05/02/18 01:00 05:31 05:55 08:40 Temp 97.9 Pulse 66 66 Resp 18 20 B/P (MAP) 126/60 (82) 126/60 Pulse Ox 94 95 O2 Delivery BiPAP/CPAP Nasal Cannula Nasal Cannula O2 Flow Rate 2.0 2.0 Intake and Output 05/01/18 05/01/18 05/02/18 15:00 23:00 07:00 Intake Total 480 ml 600 ml 300 ml Output Total 2100 ml 1050 ml 650 ml Balance -1620 ml -450 ml -350 ml YUNIER NOEL VIDEO RECORDER MECHANIC May 02, 2018 08:58
[2018-05-02] MEDS: MORPHINE ER 30 MG TABLET.ER PO PRN ×2 (10:57→20:17)
[2018-05-02 11:19] VITALS: BP 136/66
[2018-05-02] MEDS: NYSTATIN 100,000 UNITS/ML ORAL SUSPENSION 60ML BOTTLE. SWSW SCH ×3 (12:17→20:19)
[2018-05-02] MEDS: GLIMEPIRIDE 2 MG TABLET PO SCH (13:47)
[2018-05-02] MEDS: metFORMIN XR 500 MG TAB.ER.24H PO SCH (13:47)
[2018-05-02 14:40] VITALS: BP 138/74
[2018-05-02 20:16] VITALS: BP 156/77
[2018-05-02] MEDS: MIRTAZAPINE 30 MG TABLET PO SCH (20:17)
[2018-05-02] MEDS: SIMVASTATIN 20 MG TABLET PO SCH (20:17)
[2018-05-02] MEDS: cloNIDine HCL 0.1 MG TABLET PO SCH (20:19)
[2018-05-02] MEDS: APIXABAN 5 MG TABLET. PO SCH (20:19)
--- NOTE | 2018-05-02 21:09 | PN ---
DATE: 05/02/2018 SUBJECTIVE: The patient is resting slightly propped up in bed, in no apparent respiratory distress. She did complain that she is shaky because of the inhalers; however, she has generally much improved, has no more shortness of breath, nausea, vomiting or diarrhea. We did arrange for her to have a CT angio of the chest, which showed that the patient has small pulmonary emboli involving primarily the right lower lobe. She has increasing mild bibasilar atelectasis. When I examined her, she was resting, slightly propped up in bed, in no apparent respiratory distress. She was slightly pale, but no jaundice, cyanosis, or thyromegaly. No jugular venous distension. Her bilateral lower limb edema has largely improved. PHYSICAL EXAMINATION: VITAL SIGNS: Her heart rate was 71, blood pressure was 136/66, temperature was 98.5, respiratory rate was 20, and oxygen saturation was 95% on 2 liters of oxygen. HEAD, EYES, EARS, NOSE, AND THROAT: Showed normocephalic, atraumatic. NECK: Supple. HEART: Showed normal first and second heart sounds with no gallop, rub or murmur. CHEST: Clear to auscultation. No crepitation or rhonchi. ABDOMEN: Distended, soft, nontender. NEUROLOGIC: She is awake, alert, responding appropriately. All cranial nerves are intact. She moves extremities without difficulty. She ambulates without assistance or assistive device. Her intake over the last 24 hours was 1560, output was 3750. LABORATORY DATA: Showed a white cell count 10,300, hemoglobin 11, hematocrit 33, MCV 81, and platelet count of 237,000 with normal manual differential. Her chemistry showed a serum sodium of 139, potassium 4.6, chloride 105, bicarbonate 28, anion gap of 6, BUN 19, creatinine 1.1, estimated GFR was 50 mL per minute. Her glucose was 185, calcium was 7, and magnesium was 2. Her blood gases showed a pH of 7.33, a pCO2 of 44, pO2 48, bicarbonate 23, oxygen saturation was 80% on FiO2 of 21%. Urinalysis was unremarkable. Toxic screen was positive for opiates and cannabinoids. ASSESSMENT: 1. Bilateral lower lobe infiltrate. 2. Chronic obstructive pulmonary disease exacerbation. 3. Acute hypoxic respiratory failure. 4. Type 2 diabetes mellitus. 5. Hypertension. 6. Hyperlipidemia. 7. Chronic kidney disease. 8. Urinary retention. 9. Elevated D-dimer with acute hypoxic respiratory failure, which we did a CT angio of the chest, which showed that she has small right lower lobe pulmonary emboli. PLAN: 1. My plan is to start her on Eliquis 10 mg twice a day. 2. Continue with IV antibiotic in the form of Rocephin and Zithromax for community-acquired pneumonia. 3. Continue with steroids and cut back bronchodilator to be given as needed. Continue with IV Lasix. I discontinued her Lovenox, started her on apixaban 10 mg twice a day for one week and then 5 mg twice a day. We will discontinue her Chan catheter and we will continue with physical and occupational therapy and hopefully she can be discharged home tomorrow. BRUCE BENZ MD DR: JACQUELIN/junie JOB#: [id number] / [id number]
[2018-05-02 23:16] VITALS: BP 115/58
[2018-05-03] MEDS: LEVOTHYROXINE 75 MCG TABLET PO SCH (05:33)
[2018-05-03] MEDS: cefTRIAXone IV Push 1 GM VIAL. IVP SCH (05:33)
[2018-05-03 06:03] VITALS: BP 130/79
[2018-05-03 06:51] LABS: HEMATOCRIT 37.6 % (36.0-47.0); HEMOGLOBIN 12.1 g/dL (12.0-15.5); RED BLOOD COUNT 4.59 x10^6/uL (3.50-5.40); RED CELL DISTRIBUTION WIDTH 16.5 % (11.5-14.5); WHITE BLOOD COUNT 9.7 x10^3/uL (4.0-11.0)
[2018-05-03 07:08] LABS: CALCIUM 8.3 mg/dL (8.5-10.1); GFR 56.4
[2018-05-03] MEDS: INSULIN LISPRO 300 UNITS/3 ML INSULN.PEN. SQ SCH ×2 (08:00→12:00)
[2018-05-03] MEDS: FUROSEMIDE 40 MG/4 ML VIAL IVP SCH (09:00)
[2018-05-03] MEDS: GABAPENTIN 300 MG CAPSULE. PO SCH (09:29)
[2018-05-03] MEDS: FOLIC ACID 1 MG TABLET PO SCH (09:29)
[2018-05-03] MEDS: FLUoxetine HCL 20 MG CAPSULE PO SCH (09:29)
[2018-05-03] MEDS: PANTOPRAZOLE 40 MG TABLET. PO SCH (09:30)
[2018-05-03] MEDS: FERROUS SULFATE 325 MG TABLET. PO SCH (09:30)
[2018-05-03] MEDS: LACTOBACILLUS RHAMNOSUS GG 1 CAPSULE. PO SCH (09:30)
[2018-05-03] MEDS: OXYBUTYNIN CHLORIDE 5 MG TABLET PO SCH (09:30)
[2018-05-03] MEDS: ASPIRIN ENTERIC COATED 81 MG TABLET.DR. PO SCH (09:30)
[2018-05-03] MEDS: CHOLECALCIFEROL (VITAMIN D3) 1,000 UNIT TABLET PO SCH (09:30)
[2018-05-03] MEDS: MAGNESIUM OXIDE 400 MG TABLET PO SCH ×2 (09:30→13:55)
[2018-05-03] MEDS: GLIMEPIRIDE 2 MG TABLET PO SCH (09:30)
[2018-05-03] MEDS: amLODIPine BESYLATE 5 MG TABLET PO SCH (09:31)
[2018-05-03] MEDS: APIXABAN 5 MG TABLET. PO SCH (09:31)
[2018-05-03] MEDS: AZITHROMYCIN 250 MG TABLET. PO SCH (09:31)
[2018-05-03] MEDS: metFORMIN XR 500 MG TAB.ER.24H PO SCH (09:32)
[2018-05-03] MEDS: POTASSIUM CHLORIDE 20 MEQ TABLET.ER. PO SCH ×2 (09:32→13:55)
[2018-05-03] MEDS: MORPHINE ER 30 MG TABLET.ER PO PRN (09:32)
[2018-05-03] MEDS: FLUTICASONE 50MCG/NASAL SPRAY 16GM BOTTLE. NS SCH (09:34)
[2018-05-03] MEDS: KETOTIFEN FUMARATE 0.025% OPHT SOLUTION BOTTLE. OU SCH (09:37)
[2018-05-03] MEDS: NYSTATIN 100,000 UNITS/ML ORAL SUSPENSION 60ML BOTTLE. SWSW SCH (09:37)
[2018-05-03 09:47] VITALS: BP 155/61
--- NOTE | 2018-05-03 10:33 | EKG ---
[address] [id number] Test Date: 2018-05-03 Test Time: 10:31:54 Pat Name: ALEJANDRO CARRILLO Department: Room: 122 A Gender: F Sheet Catcher: : [id number] Requested By: YUNIER NOEL Order Number: [id number] Reading MD: Nate Chan Measurements Intervals [place] Rate: 62 P: 32 TN: 132 QRS: 54 QRSD: 84 T: 47 QT: 406 QTc: 414 Interpretive Statements SINUS RHYTHM EARLY REPOLARIZATION ABNORMALITY Electronically Signed On 05-08-2018 10:40:41 DISTRIBUTION ACCOUNTING CLERK by Nate Chan
--- NOTE | 2018-05-03 11:33 | PDOC ---
PROGRESS NOTES Diagnosis Problem Problems Medical Problems: (1) Hypoxia Status: Acute Assessment Problems Medical Problems: (1) Hypoxia Status: Acute 1. Acute hypoxic respiratory failure, multifactorial - improved 2. PPE - anticoagulation 6 months, per PCP 3. HTN - controlled on current medication 4. recurrent CP - most likely secondary to PE. No acute EKG changes. will repeat trop x 1. Planned for outpatient MPI when respiratory status [facility] with [facility]. Needs CV follow up in 4 weeks. continue aspirin, statin. no beta demi due to pulmonary disease. 4. Renal insufficiency, mild - stable 5. HLD - continue statin Subjective reports "afraid to go home", breathing better, complains of chest pain and feeling very cold, no palpitations, complains of lightheadedness Objective tele - no acute arrhythmias Vital Signs Date Time Temp Pulse Resp B/P (MAP) Pulse Ox O2 Delivery O2 Flow Rate FiO2 05/03/18 10:50 98 Nasal Cannula 2.0 05/03/18 09:47 97.8 65 20 155/61 (92) Intake and Output 05/03/18 07:00 Intake Total 480 ml Balance 480 ml Intake Oral 480 ml Abdomen: Normal bowel sounds, Soft Heart: Normal S1, Normal S2, Other (no gallops, clicks or rubs) Extremities: No cyanosis General: Alert, Oriented X3, Cooperative, No acute distress Lungs: Other (decreased bases right>left) Neuro: Normal speech Psych/Mental Status: Other (anxious) Review of Relevant I have reviewed the following items yolis (where applicable) has been applied. Labs Laboratory Tests Test 05/01/18 11:51 05/01/18 16:50 05/01/18 20:21 05/02/18 07:46 Glucose (Fingerstick) 129 mg/dL (70-99) 198 mg/dL (70-99) 189 mg/dL (70-99) 163 mg/dL (70-99) Test 05/02/18 11:48 05/02/18 17:01 05/02/18 21:15 05/03/18 06:38 Glucose (Fingerstick) 142 mg/dL (70-99) 116 mg/dL (70-99) 100 mg/dL (70-99) White Blood Count 9.7 x10^3/uL (4.0-11.0) Red Blood Count 4.59 x10^6/uL (3.50-5.40) Hemoglobin 12.1 g/dL (12.0-15.5) Hematocrit 37.6 % (36.0-47.0) Mean Corpuscular Volume 82 fL (79-100) Mean Corpuscular Hemoglobin 26 pg (25-35) Mean Corpuscular Hemoglobin Concent 32 g/dL (31-37) Red Cell Distribution Width 16.5 % (11.5-14.5) Platelet Count 237 x10^3/uL (140-400) Sodium Level 137 mmol/L (136-145) Potassium Level 5.0 mmol/L (3.5-5.1) Chloride Level 101 mmol/L (98-107) Carbon Dioxide Level 29 mmol/L (21-32) Anion Gap 7 (6-14) Blood Urea Nitrogen 24 mg/dL (7-20) Creatinine 1.0 mg/dL (0.6-1.0) Estimated GFR (Cockcroft-Gault) 56.4 Glucose Level 80 mg/dL (70-99) Calcium Level 8.3 mg/dL (8.5-10.1) Test 05/03/18 07:54 Glucose (Fingerstick) 67 mg/dL (70-99) Microbiology 04/29/18 Blood Culture - Preliminary, Resulted NO GROWTH AFTER 4 DAYS... Medications Current Medications Aspirin (Children'S Aspirin) 324 mg 1X ONCE PO Last administered on at 04:52; Start 04/29/18 at 04:15; Stop 04/29/18 at 05:20; Status DC Lactated Ringer's 1,000 ml @ 100 mls/hr Q10H IV Last administered on at 04:53; Start 04/29/18 at 04:08; Stop 04/29/18 at 14:07; Status DC Methylprednisolone Sodium Succinate (SOLU-Medrol 125MG VIAL) 125 mg 1X ONCE IV Last administered on 04/29/18at 04:53; Start 04/29/18 at 04:15; Stop at 05:23; Status DC Albuterol/ Ipratropium (Duoneb) 3 ml 1X ONCE NEB Last administered on at 04:50; Start 04/29/18 at 04:15; Stop 04/29/18 at 05:22; Status DC Enoxaparin Sodium (Lovenox 100mg Syringe) 90 mg 1X ONCE SQ Last administered on 04/29/18at 04:52; Start 04/29/18 at 04:30; Stop 04/29/18 at 05:22; Status DC Ceftriaxone Sodium 1 gm/ Sodium Chloride 50 ml @ 100 mls/hr 1X ONCE IV Last administered on 04/29/18at 04:52; Start 04/29/18 at 04:45; Stop 04/29/18 at 05 :25; Status DC Azithromycin (Zithromax) 500 mg 1X ONCE PO Last administered on 04/29/18at 04: 51; Start 04/29/18 at 04:45; Stop 04/29/18 at 05:20; Status DC Ondansetron HCl (Zofran) 4 mg PRN Q4HRS PRN IV NAUSEA/VOMITING; Start at 05:00; Stop 04/30/18 at 04:59; Status DC Morphine Sulfate (Morphine 2mg Syringe) 2 mg PRN Q2HR PRN IV PAIN; Start 04/29 at 05:00; Stop 04/30/18 at 04:59; Status DC Albuterol/ Ipratropium (Duoneb) 3 ml RTQID NEB Last administered on 04/29/18at 16:41; Start 04/29/18 at 08:00; Stop 04/30/18 at 07:59; Status DC Ceftriaxone Sodium 1 gm/ Sodium Chloride 50 ml @ 100 mls/hr DAILY IV ; Start 04/29/18 at 09:00; Status UNV Azithromycin (Zithromax) 250 mg DAILY PO Last administered on 05/03/18at 09:31 ; Start 04/30/18 at 09:00 Enoxaparin Sodium (Lovenox 100mg Syringe) 90 mg BID SQ Last administered on at 08:37; Start 04/29/18 at 21:00; Stop 05/02/18 at 10:06; Status DC Methylprednisolone Sodium Succinate (SOLU-Medrol 125MG VIAL) 125 mg DAILY IV ; Start 04/30/18 at 09:00; Stop 04/30/18 at 09:00; Status DC Aspirin (Children'S Aspirin) 81 mg DAILY PO Last administered on 04/30/18at 08: 27; Start 04/29/18 at 09:00; Stop 05/01/18 at 11:45; Status DC Ceftriaxone Sodium (Rocephin) 1 gm Q24H IVP Last administered on 05/03/18at 05: 33; Start 04/30/18 at 05:00 Potassium Chloride (KCl Oral Soln) 40 meq 1X ONCE PO Last administered on at 07:07; Start 04/29/18 at 06:00; Stop 04/29/18 at 06:01; Status DC Magnesium Sulfate 50 ml @ 25 mls/hr 1X ONCE IV Last administered on at 07:08; Start 04/29/18 at 06:00; Stop 04/29/18 at 08:00; Status DC Influenza Virus Vaccine (Afluria Trivalent [id number] Syringe) 0.5 ml ONCE ONCE VAX IM Last administered on 04/30/18 08:34; Start 04/30/18 at 09:00; Stop 04/30/18 at 09:01; Status DC Albuterol Sulfate (Ventolin Hfa Inhaler) 2 puff PRN QID PRN INH SHORTNESS OF BREATH; Start 04/29/18 at 14:15; Status UNV Clonidine HCl (Catapres) 0.1 mg QHS PO Last administered on 05/02/18 20:19; Start 04/29/18 at 21:00 Estrogens Conjugated (Premarin) 0.5 mg QMTH PO ; Start 05/01/18 at 16:00; Status UNV Ferrous Sulfate (Feosol) 325 mg DAILY PO Last administered on 05/03/18at 09:30 ; Start 04/30/18 at 09:00 Gabapentin (Neurontin) 900 mg BID PO Last administered on 05/03/18at 09:29; Start 04/29/18 at 21:00 Levothyroxine Sodium (Synthroid) 75 mcg DAILY06 PO Last administered on at 05:33; Start 04/30/18 at 06:00 Mirtazapine (Remeron) 30 mg QHS PO Last administered on 05/02/18at 20:17; Start 04/29/18 at 21:00 Oxybutynin Chloride (Ditropan) 5 mg DAILY PO Last administered on 05/03/18at 09 :30; Start 04/30/18 at 09:00 Promethazine HCl (Phenergan Supp) [address] PRN Q6HRS PRN CT NAUSEA/VOMITING; Start 04/29/18 at 14:15 Amlodipine Besylate (Norvasc) 5 mg DAILY PO Last administered on 05/03/18 09: 31; Start 04/30/18 at 09:00 Aspirin (Aspirin Enteric Coated) 162 mg DAILY PO Last administered on 09:30; Start 04/30/18 at 08:00 Non-Formulary Medication (Budesonide/ Formoterol Fumarate (Symbicort 160-4.5 Mcg Inhaler)) 2 puff BID IH ; Start 04/29/18 at 21:00; Status UNV Vitamin D (Vitamin D3) 5,000 unit BID PO Last administered on 05/03/18 09:30 ; Start 04/29/18 at 21:00 Non-Formulary Medication (Ciprofloxacin Hcl (Cipro)) 1 tab BID PO ; Start 04/29 at 21:00; Status UNV Fluoxetine HCl (PROzac) 40 mg DAILY PO Last administered on 05/03/18 09:29; Start 04/30/18 at 09:00 Fluticasone Propionate (Flonase) 2 spray DAILY NS Last administered on 09:34; Start 04/30/18 at 09:00 Folic Acid (Folic Acid) 1 mg DAILY PO Last administered on 05/03/18 09:29; Start 04/30/18 at 09:00 Furosemide (Lasix) 40 mg DAILY PO ; Start 04/30/18 at 09:00; Stop 04/30/18 at 09:00; Status DC Ketotifen Fumarate (Zaditor) 1 drop BID OU Last administered on 05/02/18at 20: 16; Start 04/29/18 at 21:00 Lactobacillus Rhamnosus (Culturelle) 1 cap BID PO Last administered on 09:30; Start 04/29/18 at 21:00 Morphine Sulfate (Ms Contin) 60 mg PRN Q8HRS PRN PO PAIN Last administered on 05/03/18 09:32; Start 04/29/18 at 16:00 Ondansetron HCl (Zofran Odt) 4 mg PRN QID PRN PO NAUSEA/VOMITING; Start at 14:45 Pantoprazole Sodium (Protonix) 40 mg BIDBFRMEAL PO Last administered on at 09:30; Start 04/29/18 at 16:30 Phenylephrine/ Shark Liver Oil (Preparation H) [address] RECTAL PAIN; Start 04/29/18 at 15:00 Simvastatin (Zocor) 20 mg HS PO Last administered on 05/02/18at 20:17; Start 04/29/18 at 21:00 Sumatriptan Succinate (Imitrex) 50 mg PRN Q2HR PRN PO MIGRAINE HEADACHE; Start 04/29/18 at 15:00 Potassium Chloride (Klor-Con) 40 meq 1X ONCE PO Last administered on at 15:44; Start 04/29/18 at 15:00; Stop 04/29/18 at 15:04; Status DC Potassium Chloride (Klor-Con) 20 meq DAILYWBKFT PO Last administered on at 08:27; Start 04/30/18 at 08:00; Stop 04/30/18 at 10:56; Status DC Magnesium Oxide (Magnesium Oxide) 400 mg TID PO Last administered on at 09:30; Start 04/29/18 at 21:00 Albuterol Sulfate (Ventolin) 2.5 mg PRN Q6HRS PRN NEB SHORTNESS OF BREATH Last administered on 05/03/18at 10:50; Start 04/29/18 at 15:15 Albuterol Sulfate (Ventolin) 2.5 mg RTQID NEB Last administered on 05/02/18at 05:30; Start 04/29/18 at 16:00; Stop 05/02/18 at 10:06; Status DC Budesonide (Pulmicort) 0.5 mg RTBID NEB Last administered on 05/02/18at 07:40; Start 04/29/18 at 20:00; Stop 05/02/18 at 10:06; Status DC Methylprednisolone Sodium Succinate (SOLU-Medrol 40MG VIAL) 40 mg BID IV Last administered on 05/02/18at 08:39; Start 04/29/18 at 21:00; Stop 05/02/18 at 10 :09; Status DC Oxycodone HCl (Roxicodone) 5 mg PRN Q6HRS PRN PO PAIN Last administered on 18:13; Start 04/29/18 at 16:00 Furosemide (Lasix) 40 mg 1X ONCE IVP Last administered on 04/30/18at 12:31; Start 04/30/18 at 11:00; Stop 04/30/18 at 11:01; Status DC Furosemide (Lasix) 40 mg DAILY IVP Last administered on 05/02/18at 08:39; Start 05/01/18 at 09:00 Potassium Chloride (Klor-Con) 20 meq TID PO Last administered on 05/03/18 09: 32; Start 04/30/18 at 14:00 Insulin Human Lispro (HumaLOG) 0-5 UNITS TIDWMEALS SQ Last administered on 08:48; Start 04/30/18 at 17:00 Dextrose 12.5 gm PRN Q15MIN PRN IV SEE COMMENTS; Start 04/30/18 at 13:00 Iohexol (Omnipaque 300 Mg/ml) 60 ml 1X ONCE IV Last administered on at 11:49; Start 05/01/18 at 11:00; Stop 05/01/18 at 11:01; Status DC Apixaban (Eliquis) 10 mg BID PO Last administered on 05/03/18 09:31; Start 05/02/18 at 21:00 Nystatin (Mycostatin) 5 ml QID SWSW Last administered on 05/03/18at 09:37; Start 05/02/18 at 13:00 Glimepiride (Amaryl) 2 mg DAILY PO Last administered on 05/03/18 09:30; Start 05/02/18 at 13:30 Metformin HCl (Glucophage Xr) 500 mg DAILYWBKFT PO Last administered on 09:32; Start 05/02/18 at 13:30 Active Scripts Active Promethegan (Promethazine Hcl) 25 Mg Supp.rect [address] PRN Q6HRS PRN 5 Days Zofran Odt (Ondansetron) 8 Mg Tab.rapdis 4 Mg PO QID PRN Reported Preparation H Suppository (Phenylephrine Hcl/[place] Butter) 1 Each Supp.rect 1 Each RC PRN QHS PRN Proair Hfa Inhaler (Albuterol Sulfate) 8.5 Gm Hfa.aer.ad 2 Puff INH PRN QID PRN Simvastatin 20 Mg Tablet 20 Mg PO HS Pantoprazole Sodium 40 Mg Tablet.dr 40 Mg PO BIDBFRMEAL Vitamin D3 (Cholecalciferol (Vitamin D3)) 5,000 Unit Tablet 5,000 Unit PO BID Gabapentin 300 Mg Capsule 900 Mg PO BID Furosemide 40 Mg Tablet 40 Mg PO DAILY Imitrex (Sumatriptan Succinate) 50 Mg Tablet 50 Mg PO PRN PRN Oxybutynin Chloride 5 Mg Tablet 5 Mg PO DAILY Morphine Sulfate 30 Mg Tablet 60 Mg PO PRN Q8HRS PRN Remeron (Mirtazapine) 30 Mg Tablet 30 Mg PO QHS Levothyroxine Sodium 75 Mcg Tablet 75 Mcg PO DAILY07 Culturelle (Lactobacillus Rhamnosus Gg) 1 Each Capsule 2 Each PO TID Zaditor (Ketotifen Fumarate) 5 Ml Drops 1 Drop EACHEYE BID Folic Acid 1 Mg Tablet 1 Tab PO DAILY Fluticasone Propionate Nasal [place] (Fluticasone Propionate) 16 Gm [place].susp 2 [place] NS DAILY Fluoxetine Hcl 40 Mg Capsule 40 Mg PO DAILY Ferrous Sulfate 325 Mg Tablet 325 Mg PO DAILY Premarin (Estrogens, Conjugated) 0.625 Mg Tablet 0.5 Mg PO QMTH Clonidine Hcl 0.1 Mg Tablet 0.1 Mg PO QHS Symbicort 160-4.5 Mcg Inhaler (Budesonide/Formoterol Fumarate) 10.2 Gm Hfa.aer.ad 2 Puff IH BID Aspirin Ec (Aspirin) 81 Mg Tablet.dr 2 Tab PO DAILY Amlodipine Besylate 5 Mg Tablet 5 Mg PO DAILY Vitals/I & O Vital Sign - Last 24 Hours 05/02/18 05/02/18 05/02/18 05/02/18 14:40 15:59 19:15 20:16 Temp 98.4 98.3 Pulse 85 74 Resp 20 18 B/P (MAP) 138/74 (95) 156/77 (103) Pulse Ox 95 95 95 O2 Delivery Nasal Cannula Nasal Cannula O2 Flow Rate 2.0 2.0 05/02/18 05/02/18 05/02/1818 20:17 20:19 23:16 00:20 Temp 97.9 Pulse 74 71 Resp 20 20 18 B/P (MAP) 156/77 115/58 (77) Pulse Ox 95 O2 Delivery Nasal Cannula Nasal Cannula Nasal Cannula O2 Flow Rate 2.0 2.0 2.0 05/03/18 05/03/18 05/03/18 05/03/18 06:03 08:00 09:31 09:47 Temp 97.0 97.8 Pulse 53 53 65 Resp 18 20 B/P (MAP) 130/79 (96) 130/79 155/61 (92) Pulse Ox 96 96 O2 Delivery BiPAP/CPAP Nasal Cannula Nasal Cannula O2 Flow Rate 2.0 2.0 05/03/18 10:50 Pulse Ox 98 O2 Delivery Nasal Cannula O2 Flow Rate 2.0 Intake and Output 05/02/18 05/02/18 05/03/18 15:00 23:00 07:00 Intake Total 360 ml 120 ml Balance 360 ml 120 ml YUNIER NOEL APRN May 03, 2018 11:33
--- NOTE | 2018-05-03 14:59 | DS ---
DATE OF DISCHARGE: 05/03/2018 HOSPITAL COURSE: The patient is a 62-year-old female patient who was admitted with shortness of breath and cough. She does have also some nausea, vomiting and diarrhea. She did complain also bilateral lower extremity swelling, tingling and numbness and loss of sensation. Her EKG and chest x-ray were unremarkable; however she was hypoxic with oxygen saturation of only 80% on room air. Her D-dimer was elevated; however, her urinalysis was unremarkable and toxic screen was positive for opiates and cannabinoids. Her chest x-ray showed that her heart is enlarged. The prominence pulmonary arterial trunk may be seen with pulmonary arterial hypertension; however, has sclerotic calcification. The aorta is seen. She also has bilateral opacities, left greater than right. It could be seen with infection or consolidation; however, no pleural effusion or pneumothorax. She was admitted and was given steroids, IV ceftriaxone and azithromycin. She was also started on Lovenox 90 mg twice a day subcutaneously together with albuterol and Atrovent. 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 She did generally well. We did actually CT angio of the chest, which basically showed that she has small pulmonary emboli involving primarily the right lower lobe. She has increasing mild bilateral atelectasis, no clear cut infection. Her Doppler ultrasound of both lower extremities showed no evidence of bilateral lower extremity DVT. PHYSICAL EXAMINATION: GENERAL: When I examined her today, she looked well and was clearly in no apparent respiratory distress. No pallor, jaundice or cyanosis. No lymphadenopathy, no thyromegaly. No jugular venous distention. No limb edema. VITAL SIGNS: Her heart rate was 65, blood pressure was 155/61, temperature was 97.8, respiratory rate was 20, and oxygen saturation was 96% on room air. HEAD, EYES, EARS, NOSE AND THROAT: Showed normocephalic, atraumatic. NECK: Supple. CARDIOVASCULAR: Showed normal first and second heart sounds. No gallop, rub or murmur. CHEST: Clear to auscultation. No crepitation or rhonchi. ABDOMEN: Distended, soft, nontender. No guarding or rigidity. No organomegaly. Hernial orifice intact. Bowel sounds normal. NEUROLOGIC: She was awake, alert, responding appropriately. Cranial nerves are intact. She moves extremities without difficulty. She ambulates without assistance or assistive devices. Her intake over the last 24 hours was 1380, output was 3800. LABORATORY DATA: Her lab work this morning showed a white cell count 9700, hemoglobin 12, hematocrit 37, MCV 82 and platelet count of 237,000. Her chemistry showed a serum sodium 137, potassium 5, chloride 101, bicarbonate 29, anion gap of 7, BUN 24, creatinine 1, estimated GFR was 56 mL per minute. Her glucose was 80, calcium was 8.3. DISCHARGE MEDICATIONS: She will be discharged home to continue on following medication, a tapering course of steroids, she will be also on apixaban 10 mg twice a day for 6 more days and then apixaban 5 mg twice a day. She will continue on her amlodipine 5 mg once a day, albuterol sulfate 2 puffs 4 times a day, aspirin 81 mg once a day, Symbicort 2 puffs twice a day, cholecalciferol for vitamin D3 5000 international unit twice a day, clonidine 0.1 mg at bedtime, estrogen conjugated for Premarin once a month, ferrous sulfate 325 mg daily, fluoxetine 40 mg daily, Flonase 2 sprays to each nostril once a day, folic acid 1 mg once a day, furosemide 40 mg daily, gabapentin 900 mg twice a day, ketotifen fumarate for Zaditor 1 drop to both eyes twice a day, lactobacillus rhamnosus 2, three times a day, levothyroxine sodium 75 mcg once a day, mirtazapine for Remeron 30 mg at bedtime, morphine sulfate 60 mg every 8 hours, ondansetron for Zofran 4 mg 4 times a day as needed, oxybutynin chloride 5 mg daily, Protonix 40 mg twice a day, phenylephrine cocoa butter, Preparation-H suppositories as needed, promethazine 25 mg every 6 hours, simvastatin 20 mg 1 tablet once a day, sumatriptan succinate for Imitrex 50 mg p.o. daily p.r.n. for headache. FINAL DISCHARGE DIAGNOSES: 1. Acute hypoxic respiratory failure. 2. Pulmonary emboli. 3. Chronic obstructive pulmonary disease, hypertension, type 2 diabetes, hyperlipidemia, has chronic kidney disease, urinary retention, cerebrovascular accident, history of left hip abscess from which she grew methicillin-resistant Staphylococcus aureus and required incision. BRUCE BENZ MD DR: Stepan JOB#: [id number] / [id number]
== END 2018-05-03 15:00 | disposition home or self-care (01) | DRG 871 ==
LOC: ER 03:30 → 1 SOUTH 04:30
PROVIDERS: ADMIT Internal Medicine; ATTEND Internal Medicine
PROC: 5A09357 Assistance with Respiratory Ventilation, Less than 24 Consecutive Hours, Continuous Positive Airway Pressure (ICD-10-PCS; principal; 2018-04-29)
PROC: 5A09357 Assistance with Respiratory Ventilation, Less than 24 Consecutive Hours, Continuous Positive Airway Pressure (ICD-10-PCS; 2018-05-03)
DX: A41.9 Sepsis, unspecified organism (principal); J18.9 Pneumonia, unspecified organism; J96.01 Acute respiratory failure with hypoxia; B59 Pneumocystosis; J44.0 Chronic obstructive pulmonary disease with (acute) lower respiratory infection; I13.0 Hypertensive heart and chronic kidney disease with heart failure and stage 1 through stage 4 chronic kidney disease, or unspecified chronic kidney disease; J44.1 Chronic obstructive pulmonary disease with (acute) exacerbation; J98.11 Atelectasis; F11.20 Opioid dependence, uncomplicated; N18.9 Chronic kidney disease, unspecified; E11.22 Type 2 diabetes mellitus with diabetic chronic kidney disease; E78.00 Pure hypercholesterolemia, unspecified; E78.5 Hyperlipidemia, unspecified; F12.90 Cannabis use, unspecified, uncomplicated; G47.33 Obstructive sleep apnea (adult) (pediatric); F41.9 Anxiety disorder, unspecified; I25.10 Atherosclerotic heart disease of native coronary artery without angina pectoris; I50.9 Heart failure, unspecified; R79.1 Abnormal coagulation profile; Z82.49 Family history of ischemic heart disease and other diseases of the circulatory system; Z86.73 Personal history of transient ischemic attack (TIA), and cerebral infarction without residual deficits; Z87.891 Personal history of nicotine dependence; Z90.710 Acquired absence of both cervix and uterus; G89.29 Other chronic pain; Z91.040 Latex allergy status; Z91.048 Other nonmedicinal substance allergy status
CPT/HCPCS: 36415; 36600; 51702; 71045; 71275; 80048; 80053; 80061; 80076; 80307; 81001; 82550; 82803; 82947; 83690; 83735; 83880; 84443; 84484; 85025; 85027; 85379; 85610; 85730; 87040; 90471; 90756; 93005; 93306; 93970; 94618; 94640; 94660; 96365; 96367; 96372; 96375; J0456; J0696; J1650; J1815; J1940; J2920; J2930; J3475; J7120; J7613; J7620; J7626; Q9967; 99285-25; Q2035

== ENCOUNTER → 2018-05-30 | Outpatient (CLI) | payer OTHER ==
[2018-05-03 09:47] VITALS: BP 155/61
--- NOTE | 2018-05-31 14:54 | RAD ---
DATE: 05/30/2018 3:00 PM EXAM: DIGITAL SCREEN BILAT W/CAD HISTORY: routine screening evaluation. COMPARISON: Prior mammographic imaging dating back to 02/26/2010 Bilateral full field craniocaudal and mediolateral oblique images were obtained using digital technique. This study was interpreted with the benefit of Computerized Aided Detection (CAD ). Breast Density: The breast parenchyma is heterogeneously dense, which could reduce sensitivity of mammography. Breast parenchyma level C. FINDINGS: Benign calcifications are present. There is an asymmetry in the posterior depth of the left breast seen only on the MLO view approximately 7 cm from the nipple. No suspicious masses, microcalcifications or architectural distortion is present to suggest malignancy in the left breast. The visualized axillae are unremarkable. IMPRESSION: Left breast asymmetry, findings for which additional imaging is advised. BI-RADS CATEGORY: 0 INCOMPLETE: NEEDS ADDITIONAL IMAGING EVALUATION AND/OR PRIOR MAMMOGRAMS FOR COMPARISON. RECOMMENDED FOLLOW-UP: ADD ADDITIONAL IMAGING The patient will be contacted to return for additional imaging to include spot compression MLO and full field ML views and likely ultrasound and a supplemental report will follow. PQRS compliance statement: Patient information was entered into a reminder system with a target due date -immediate recall for further breast imaging. Mammography is a sensitive method for finding small breast cancers, but it does not detect them all and is not a substitute for careful clinical examination. A negative mammogram does not negate a clinically suspicious finding and should not result in delay in biopsying a clinically suspicious abnormality. "Our facility is accredited by the [employer] Mammography Program." LUNAD
== END | disposition home or self-care (01) ==
LOC: MAMMO 13:06
PROVIDERS: ATTEND Obstetrics & Gynecology
DX: Z12.31 Encounter for screening mammogram for malignant neoplasm of breast (principal)
CPT/HCPCS: 77067

== ENCOUNTER → 2018-06-23 | Outpatient (CLI) | payer OTHER ==
[~2018-06-23] MED LIST changes: +ALBU2.5V8 INH; -ALBU8.5H8 INH
--- NOTE | 2018-06-23 13:35 | RAD ---
DATE: 06/23/2018 EXAM: DIGITAL DIAGNOSTIC LT HISTORY: Suspicious screening study COMPARISON: 05/30/2018, 11/08/2013 This study was interpreted with the benefit of Computerized Aided Detection (CAD). Breast Density: HETERO The breast parenchyma is heterogenously dense, which could reduce sensitivity of mammography. Breast parenchyma level C. FINDINGS: Additional spot compression oblique views of the left breast as well as a straight mediolateral view were obtained and correlated with the screening study. Patchy fibroglandular type shadows are evident superiorly in the left breast on the spot compression views. A similar appearance was present on the oblique view from the 11/08/2013 study. No discrete mass or new density is evident. IMPRESSION: Stable left mammograms without evidence of malignancy. Routine yearly mammographic follow-up is suggested. BI-RADS CATEGORY: 3 PROBABLY BENIGN FINDING(S)-SHORT INTERVAL FOLLOW-UP SUGGESTED RECOMMENDED FOLLOW-UP: 12M 12 MONTH FOLLOW-UP PQRS compliance statement: Patient information was entered into a reminder system with a target due date for the next mammogram. Mammography is a sensitive method for finding small breast cancers, but it does not detect them all and is not a substitute for careful clinical examination. A negative mammogram does not negate a clinically suspicious finding and should not result in delay in biopsying a clinically suspicious abnormality. "Our facility is accredited by the [employer] Mammography Program."
== END | disposition home or self-care (01) ==
LOC: MAMMO 12:17
PROVIDERS: ATTEND Obstetrics & Gynecology
DX: R92.8 Other abnormal and inconclusive findings on diagnostic imaging of breast (principal)
CPT/HCPCS: 77065

== ENCOUNTER 2018-12-21 01:46 | Inpatient (IN) | payer OTHER ==
[~2018-12-21] VITALS: Ht 162.6 cm; Wt 98.0 kg
[~2018-12-21 01:46] MED LIST changes: +AMLO5TAB10 PO; -AMLO5TAB7 PO
--- NOTE | 2018-12-21 01:58 | ED.ADGEN ---
Past History Past Medical History: Anxiety, Arthritis, Bronchitis, CAD, CHF, COPD, CVA, Diabetes, DVT, High Cholesterol, Hypertension, Kidney Infection, Pneumonia, Renal Failure, TIA, UTI, Other Past Surgical History: Cholecystectomy, Hysterectomy, Lumbar Laminectomy, Other Smoking: Cigarettes Alcohol Use: None Drug Use: Marijuana Adult General Chief Complaint Chief Complaint ".. I recently was treated for a UTI .. on Bactrim .. I was seen at [facility].. but all of sudden.. I started getting nauseate... and vomiting.. . I ve been feeling off the last couple days..." HPI HPI Patient is a 63 year old female who presents with nausea and vomiting x 2 days. Patient complaining of increased dyspnea tonight. Pt. recently seen at [facility] for UTI and started on Bactrim. Pt. denies any travel or specific ill contacts. Pt. denies any bad food. Pt. localizes her stomach discomfort in epigastric area. Patient has significant history for anxiety, arthritis, bronchitis, COPD, CHF, CVA, coronary artery disease, diabetes, elevated cholesterol, hypertension, kidney disease, and recent urinary tract infection. Patient does smoke. Pt. on anticoagulation. Review of Systems Review of Systems Constitutional: Denies fever or chills [] Eyes: Denies change in visual acuity, redness, or eye pain [] HENT: Denies nasal congestion or sore throat [] Respiratory: Denies cough or shortness of breath [] Cardiovascular: No additional information not addressed in HPI [] GI: Denies abdominal pain, nausea, vomiting, bloody stools or diarrhea [] : Denies dysuria or hematuria [] Musculoskeletal: Denies back pain or joint pain [] Integument: Denies rash or skin lesions [] Neurologic: Denies headache, focal weakness or sensory changes [] Endocrine: Denies polyuria or polydipsia [] All other systems were reviewed and found to be within normal limits, except as documented in this note. Family History Family History Noncontributory to her presentation Current Medications Current Medications Current Medications Medications (Trade) Dose Ordered Sig/Diana Start Time Stop Time Status Last Admin Dose Admin Lactated Ringer's 1,000 ml @ 1,000 mls/hr Q1H 12/21/18 02:00 12/21/18 02:59 DC 12/21/18 02:00 1,000 MLS/HR Ondansetron HCl (Zofran) 8 mg 1X ONCE 12/21/18 02:15 12/21/18 02:16 DC 12/21/18 03:42 8 MG Allergies Allergies Allergies Coded Allergies Type Severity Reaction Last Updated Verified adhesive Allergy Severe Hives 04/29/18 Yes latex Allergy Severe 04/29/18 Yes Physical Exam Physical Exam Constitutional: Moderate acute distress, non-toxic appearance. [] HENT: Normocephalic, atraumatic, bilateral external ears normal, oropharynx moist, no oral exudates, nose normal. [] Eyes: PERRLA, EOMI, conjunctiva normal, no discharge. [] Neck: Normal range of motion, no tenderness, supple, no stridor. [] Cardiovascular: Tachycardia Heart rate regular rhythm, no murmur []N[place] to the left Lungs & Thorax: Bilateral breath sounds equal apexes scattered wheezes on auscultation []basilar crackles. Abdomen: Bowel sounds are hyperactive , soft, epigastric tenderness, no masses, no pulsatile masses. Old surgery scars Skin: Warm, dry, no erythema, no rash. [] Back: No tenderness, no CVA tenderness. [] Extremities: No tenderness, no cyanosis, no clubbing, ROM intact, ankle edema. Arthritic changes Neurologic: Alert and oriented X 3, normal motor function, normal sensory function, no focal deficits noted. [] Psychologic: Affect anxious, judgement normal, mood normal. [] Current Patient Data Vital Signs Vital Signs Date Time Temp Pulse Resp B/P (MAP) Pulse Ox O2 Delivery O2 Flow Rate FiO2 12/21/18 04:05 89 14 112/59 (76) 93 Nasal Cannula 2.0 12/21/18 01:50 98.3 Lab Results Laboratory Tests Test 12/21/18 02:36 12/21/18 02:40 12/21/18 03:35 White Blood Count 8.5 x10^3/uL (4.0-11.0) Red Blood Count 4.93 x10^6/uL (3.50-5.40) Hemoglobin 14.0 g/dL (12.0-15.5) Hematocrit 42.4 % (36.0-47.0) Mean Corpuscular Volume 86 fL (79-100) Mean Corpuscular Hemoglobin 28 pg (25-35) Mean Corpuscular Hemoglobin Concent 33 g/dL (31-37) Red Cell Distribution Width 14.5 % (11.5-14.5) Platelet Count 219 x10^3/uL (140-400) Neutrophils (%) (Auto) 82 % (31-73) H Lymphocytes (%) (Auto) 14 % (24-48) L Monocytes (%) (Auto) 4 % (0-9) Eosinophils (%) (Auto) 0 % (0-3) Basophils (%) (Auto) 1 % (0-3) Neutrophils # (Auto) 7.0 x10^3uL (1.8-7.7) Lymphocytes # (Auto) 1.2 x10^3/uL (1.0-4.8) Monocytes # (Auto) 0.3 x10^3/uL (0.0-1.1) Eosinophils # (Auto) 0.0 x10^3/uL (0.0-0.7) Basophils # (Auto) 0.1 x10^3/uL (0.0-0.2) Urine Collection Type U cath Urine Color Yellow Urine Clarity Clear Urine pH 6.0 Urine Specific Reeves 1.020 Urine Protein Neg (NEG-TRACE) Urine Glucose (UA) Neg mg/dL (NEG) Urine Ketones (Stick) Neg mg/dL (NEG) Urine Blood Trace (NEG) Urine Nitrite Neg (NEG) Urine Bilirubin Neg (NEG) Urine Urobilinogen Dipstick 0.2 mg/dL (0.2 mg/dL) Urine Leukocyte Esterase Neg (NEG) Urine RBC Rare /HPF (0-2) Urine WBC Occ /HPF (0-4) Urine Squamous Epithelial Cells Occ /LPF Urine Bacteria 0 /HPF (0-FEW) Urine Opiates Screen Pos (NEG) Urine Methadone Screen Neg (NEG) Urine Barbiturates Neg (NEG) Urine Phencyclidine Screen Neg (NEG) Urine Amphetamine/Methamphetamine Neg (NEG) Urine Benzodiazepines Screen Neg (NEG) Urine Cocaine Screen Neg (NEG) Urine Cannabinoids Screen Neg (NEG) Urine Ethyl Alcohol Neg (NEG) Prothrombin Time 10.3 SEC (9.4-11.4) Prothrombin Time INR 1.0 (0.9-1.1) PTT 26 SEC (23-33) D-Dimer (Radha) 0.51 mg/L (0.00-0.50) H Sodium Level 138 mmol/L (136-145) Potassium Level 3.8 mmol/L (3.5-5.1) Chloride Level 102 mmol/L (98-107) Carbon Dioxide Level 21 mmol/L (21-32) Anion Gap 15 (6-14) H Blood Urea Nitrogen 11 mg/dL (7-20) Creatinine 1.2 mg/dL (0.6-1.0) H Estimated GFR (Cockcroft-Gault) 45.5 Glucose Level 149 mg/dL (70-99) H Calcium Level 9.5 mg/dL (8.5-10.1) Magnesium Level 1.7 mg/dL (1.8-2.4) L Total Bilirubin 0.1 mg/dL (0.2-1.0) L Direct Bilirubin 0.1 mg/dL (0.0-0.2) Aspartate Amino Transferase (AST) 17 U/L (15-37) Alanine Aminotransferase (ALT) 29 U/L (14-59) Alkaline Phosphatase 108 U/L (46-116) Creatine Kinase 57 U/L (26-192) Troponin I Quantitative < 0.017 ng/mL (0-0.055) VL-Jjh-N-Type Natriuretic Peptide 749 pg/mL (0-124) H Total Protein 7.2 g/dL (6.4-8.2) Albumin 3.4 g/dL (3.4-5.0) Amylase Level 20 U/L (25-115) L Lipase 64 U/L (73-393) L EKG EKG My interpretation EKG shows sinus rhythm at 90 bpm. No acute morphology consistent with acute STEMI. with contralateral changes.[] Radiology/Procedures Radiology/Procedures My interpretation of chest x-ray shows basilar atelectasis. Left is more than right. Does have by L basilar opacities. Cardiomegaly.[] My interpretation of CT of head shows no shift, mass, edema, bleed, or fracture. Does have a large area encephalomalacia on right frontal lobe area Course & Med Decision Making Course & Med Decision Making Pertinent Labs and Imaging studies reviewed. (See chart for details) Will stop Bactrim for now and start on Rocephin because of past renal insuf. and may be cause of her nausea and vomiting. Patient now complaining of dizziness. 0430 hrs. Pt. admitted to Dr. Garcia- walter eval and tx. [] Final Impression Final Impression 1. Nausea and Vomiting[] 2. Dyspnea 3. COPD exacerbation 4. Accelerated HTN 5. DM glu 149 6. Elevated Creat 1.2 7. Hypomagnesium 1.7 8. Dizzy 9. Min. elevation D-dimer 0.51 Dragon Disclaimer Dragon Disclaimer This electronic medical record was generated, in whole or in part, using a voice recognition dictation system. Discharge Summary Visit Information Final Diagnosis Problems Medical Problems: (1) COPD with acute bronchitis Status: Acute (2) Dyspnea Status: Acute (3) Nausea and vomiting Status: Acute Brief Hospital Course Allergies Allergies Coded Allergies Type Severity Reaction Last Updated Verified adhesive Allergy Severe Hives 04/29/18 Yes latex Allergy Severe 04/29/18 Yes Vital Signs Vital Signs Date Time Temp Pulse Resp B/P (MAP) Pulse Ox O2 Delivery O2 Flow Rate FiO2 12/21/18 04:05 89 14 112/59 (76) 93 Nasal Cannula 2.0 12/21/18 01:50 98.3 Lab Results Laboratory Tests Test 12/21/18 02:36 12/21/18 02:40 12/21/18 03:35 White Blood Count 8.5 x10^3/uL (4.0-11.0) Red Blood Count 4.93 x10^6/uL (3.50-5.40) Hemoglobin 14.0 g/dL (12.0-15.5) Hematocrit 42.4 % (36.0-47.0) Mean Corpuscular Volume 86 fL (79-100) Mean Corpuscular Hemoglobin 28 pg (25-35) Mean Corpuscular Hemoglobin Concent 33 g/dL (31-37) Red Cell Distribution Width 14.5 % (11.5-14.5) Platelet Count 219 x10^3/uL (140-400) Neutrophils (%) (Auto) 82 % (31-73) Lymphocytes (%) (Auto) 14 % (24-48) Monocytes (%) (Auto) 4 % (0-9) Eosinophils (%) (Auto) 0 % (0-3) Basophils (%) (Auto) 1 % (0-3) Neutrophils # (Auto) 7.0 x10^3uL (1.8-7.7) Lymphocytes # (Auto) 1.2 x10^3/uL (1.0-4.8) Monocytes # (Auto) 0.3 x10^3/uL (0.0-1.1) Eosinophils # (Auto) 0.0 x10^3/uL (0.0-0.7) Basophils # (Auto) 0.1 x10^3/uL (0.0-0.2) Urine Collection Type U cath Urine Color Yellow Urine Clarity Clear Urine pH 6.0 Urine Specific Reeves 1.020 Urine Protein Neg (NEG-TRACE) Urine Glucose (UA) Neg mg/dL (NEG) Urine Ketones (Stick) Neg mg/dL (NEG) Urine Blood Trace (NEG) Urine Nitrite Neg (NEG) Urine Bilirubin Neg (NEG) Urine Urobilinogen Dipstick 0.2 mg/dL (0.2 mg/dL) Urine Leukocyte Esterase Neg (NEG) Urine RBC Rare /HPF (0-2) Urine WBC Occ /HPF (0-4) Urine Squamous Epithelial Cells Occ /LPF Urine Bacteria 0 /HPF (0-FEW) Urine Opiates Screen Pos (NEG) Urine Methadone Screen Neg (NEG) Urine Barbiturates Neg (NEG) Urine Phencyclidine Screen Neg (NEG) Urine Amphetamine/Methamphetamine Neg (NEG) Urine Benzodiazepines Screen Neg (NEG) Urine Cocaine Screen Neg (NEG) Urine Cannabinoids Screen Neg (NEG) Urine Ethyl Alcohol Neg (NEG) Prothrombin Time 10.3 SEC (9.4-11.4) Prothromb Time International Ratio 1.0 (0.9-1.1) Activated Partial Thromboplast Time 26 SEC (23-33) D-Dimer (Radha) 0.51 mg/L (0.00-0.50) Sodium Level 138 mmol/L (136-145) Potassium Level 3.8 mmol/L (3.5-5.1) Chloride Level 102 mmol/L (98-107) Carbon Dioxide Level 21 mmol/L (21-32) Anion Gap 15 (6-14) Blood Urea Nitrogen 11 mg/dL (7-20) Creatinine 1.2 mg/dL (0.6-1.0) Estimated GFR (Cockcroft-Gault) 45.5 Glucose Level 149 mg/dL (70-99) Calcium Level 9.5 mg/dL (8.5-10.1) Magnesium Level 1.7 mg/dL (1.8-2.4) Total Bilirubin 0.1 mg/dL (0.2-1.0) Direct Bilirubin 0.1 mg/dL (0.0-0.2) Aspartate Amino Transf (AST/SGOT) 17 U/L (15-37) Alanine Aminotransferase (ALT/SGPT) 29 U/L (14-59) Alkaline Phosphatase 108 U/L (46-116) Creatine Kinase 57 U/L (26-192) Troponin I Quantitative < 0.017 ng/mL (0-0.055) KO-Qkm-U-Type Natriuretic Peptide 749 pg/mL (0-124) Total Protein 7.2 g/dL (6.4-8.2) Albumin 3.4 g/dL (3.4-5.0) Amylase Level 20 U/L (25-115) Lipase 64 U/L (73-393) Brief Hospital Course Ms. Arthur is a 63 old female who presented with N/V, Dizzy, COPD exacerbation. Admitted Dr. Garcia. Discharge Information Condition at Discharge: Improved Dischare Medications Current Medications Lactated Ringer's 1,000 ml @ 1,000 mls/hr Q1H IV Last administered on 12/21/18at 02:00; Admin Dose 1,000 MLS/HR; Start 12/21/18 at 02:00; Stop 12/21/18 at 02:59; Status DC Ondansetron HCl (Zofran) 8 mg 1X ONCE IV Last administered on 12/21/18at 03:42; Admin Dose 8 MG; Start 12/21/18 at 02:15; Stop 12/21/18 at 02:16; Status DC Active Scripts Active Promethegan (Promethazine Hcl) 25 Mg Supp.rect 25 Mg CA PRN Q6HRS PRN 5 Days Zofran Odt (Ondansetron) 8 Mg Tab.rapdis 4 Mg PO QID PRN Reported Preparation H Suppository (Phenylephrine Hcl/[place] Butter) 1 Each Supp.rect 1 Each RC PRN QHS PRN NOT GIVEN TODAY NEXT DOSE DUE: DATE: TODAY TIME: IF AND WHEN NEEDED Proair Hfa Inhaler (Albuterol Sulfate) 8.5 Gm Hfa.aer.ad 2 Puff INH PRN QID PRN NOT GIVEN TODAY NEXT DOSE DUE: DATE: TODAY TIME: IF AND WHEN NEEDED Simvastatin 20 Mg Tablet 20 Mg PO HS LAST DOSE GIVEN: DATE: YESTER TIME: AT BEDTIME NEXT DOSE DUE: DATE: TODAY TIME: AT BEDTIME Pantoprazole Sodium 40 Mg Tablet.dr 40 Mg PO BIDBFRMEAL LAST DOSE GIVEN: DATE: TODAY TIME: BEFORE BREAKFAST NEXT DOSE DUE: DATE: TODAY TIME: BEFORE DINNER Vitamin D3 (Cholecalciferol (Vitamin D3)) 5,000 Unit Tablet 5,000 Unit PO BID LAST DOSE GIVEN: DATE: TODAY TIME: AM NEXT DOSE DUE: DATE: TODAY TIME: PM Gabapentin 300 Mg Capsule 900 Mg PO BID LAST DOSE GIVEN: DATE: TIME: AM NEXT DOSE DUE: DATE: TODAY TIME: PM Furosemide 40 Mg Tablet 40 Mg PO DAILY LAST DOSE GIVEN: DATE: TODAY TIME: AM NEXT DOSE DUE: DATE: TOMORR TIME: AM Imitrex (Sumatriptan Succinate) 50 Mg Tablet 50 Mg PO PRN PRN NOT GIVEN TODAY NEXT DOSE DUE: DATE: TIME: IF AND WHEN NEEDED Oxybutynin Chloride 5 Mg Tablet 5 Mg PO DAILY LAST DOSE GIVEN: DATE: TODAY TIME: AM NEXT DOSE DUE: DATE: TIME: AM Morphine Sulfate 30 Mg Tablet 60 Mg PO PRN Q8HRS PRN LAST DOSE GIVEN: DATE: TIME: 10 AM NEXT DOSE DUE: DATE: TODAY TIME: AFTER 6 PM IF NEEDED Remeron (Mirtazapine) 30 Mg Tablet 30 Mg PO QHS LAST DOSE GIVEN: DATE: TIME: AT BEDTIME NEXT DOSE DUE: DATE: TIME: AT BEDTIME Levothyroxine Sodium 75 Mcg Tablet 75 Mcg PO DAILY07 LAST DOSE GIVEN: DATE: TODAY TIME: BEFORE BREAKFAST NEXT DOSE DUE: DATE: TOMORROW TIME: BEFORE BREAKFAST Culturelle (Lactobacillus Rhamnosus Gg) 1 Each Capsule 2 Each PO TID LAST DOSE GIVEN: DATE: TIME: AFTERNOON NEXT DOSE DUE: DATE: TODAY TIME: PM Zaditor (Ketotifen Fumarate) 5 Ml Drops 1 Drop EACHEYE BID LAST DOSE GIVEN: DATE: TIME: AM NEXT DOSE DUE: DATE: TODAY TIME: PM Folic Acid 1 Mg Tablet 1 Tab PO DAILY LAST DOSE GIVEN: DATE: TIME: AM NEXT DOSE DUE: DATE: ORR TIME: AM Fluticasone Propionate Nasal [place] (Fluticasone Propionate) 16 Gm Westwood.susp 2 [place] NS DAILY LAST DOSE GIVEN: DATE: TODAY TIME: AM NEXT DOSE DUE: DATE: TOMORROW TIME: AM Fluoxetine Hcl 40 Mg Capsule 40 Mg PO DAILY LAST DOSE GIVEN: DATE: TODAY TIME: AM NEXT DOSE DUE: DATE: TOMORROW TIME: AM Ferrous Sulfate 325 Mg Tablet 325 Mg PO DAILY LAST DOSE GIVEN: DATE: TODAY TIME: AM NEXT DOSE DUE: DATE: TOMORROW TIME: AM Premarin (Estrogens, Conjugated) 0.625 Mg Tablet 0.5 Mg PO QMTH NOT GIVEN IN THE HOSPITAL NEXT DOSE DUE: DATE: RESTART ON YOUR NORMAL DAY Clonidine Hcl 0.1 Mg Tablet 0.1 Mg PO QHS LAST DOSE GIVEN: DATE: YESTERDAY TIME: AT BEDTIME NEXT DOSE DUE: DATE: TODAY TIME: AT BEDTIME Symbicort 160-4.5 Mcg Inhaler (Budesonide/Formoterol Fumarate) 10.2 Gm Hfa.aer.ad 2 Puff IH BID NOT GIVEN IN THE HOSPITAL NEXT DOSE DUE: DATE: RESTART TONITE TIME: AT BEDTIME Aspirin Ec (Aspirin) 81 Mg Tablet.dr 2 Tab PO DAILY LAST DOSE GIVEN: DATE: TODAY TIME: AM NEXT DOSE DUE: DATE: TOMORROW TIME: AM Amlodipine Besylate 5 Mg Tablet 5 Mg PO DAILY LAST DOSE GIVEN: DATE: TODAY TIME: AM NEXT DOSE DUE: DATE: ORR TIME: AM Blanca Disclaimer This chart was dictated in whole or in part using Voice Recognition software in a busy, high-work load, and often noisy Emergency Department environment. It may contain unintended and wholly unrecognized errors or omissions. SIRI YAO MD Dec 21, 2018 01:58
[2018-12-21] MEDS ORDERED: IV RINGERS SOLUTION,LACTATED 1,000 ML IV SCH (02:00)
[2018-12-21] MEDS ORDERED: ONDANSETRON PF 4 MG/2 ML VIAL. IV ONE (02:15)
[2018-12-21 03:07] LABS: BASO # 0.1 x10^3/uL (0.0-0.2); BASO % 1 % (0-3); EOS % 0 % (0-3); HEMATOCRIT 42.4 % (36.0-47.0); LYMPH # 1.2 x10^3/uL (1.0-4.8); LYMPH % 14 % (24-48); MEAN CORPUSCULAR HEMOGLOBIN 28 pg (25-35); MEAN CORPUSCULAR HGB CONC 33 g/dL (31-37); MEAN CORPUSCULAR VOLUME 86 fL (79-100); MONO # 0.3 x10^3/uL (0.0-1.1); MONO % 4 % (0-9); NEUT % 82 % (31-73); PLATELET COUNT 219 x10^3/uL (140-400); RED BLOOD COUNT 4.93 x10^6/uL (3.50-5.40); RED CELL DISTRIBUTION WIDTH 14.5 % (11.5-14.5); WHITE BLOOD COUNT 8.5 x10^3/uL (4.0-11.0)
[2018-12-21 03:20] LABS: BILIRUBIN,URINE NEG (NEG); CLARITY,URINE CLEAR; COLOR,URINE YELLOW; GLUCOSE,URINE NEG (NEG); NITRITE,URINE NEG (NEG); UROBILINOGEN,URINE 0.2 mg/dL (0.2 mg/dL)
[2018-12-21 03:21] LABS: BACTERIA,URINE 0 /HPF (0-FEW); RBC,URINE RARE /HPF (0-2); SQUAMOUS EPITHELIAL CELL,UR OCC /LPF; WBC,URINE OCC /HPF (0-4)
[2018-12-21 03:35] LABS: BARBITURATES NEG (NEG); BENZODIAZEPINES NEG (NEG); CANNABINOIDS NEG (NEG); COCAINE NEG (NEG); METHADONE NEG (NEG); OPIATES POS (NEG); PHENCYCLIDINE NEG (NEG)
[2018-12-21 03:36] LABS: AMPHETAMINE/METHAMPHETAMINE NEG (NEG)
[2018-12-21 04:25] LABS: ALBUMIN 3.4 g/dL (3.4-5.0); CALCIUM 9.5 mg/dL (8.5-10.1); CREATININE 1.2 mg/dL (0.6-1.0); DIRECT BILIRUBIN 0.1 mg/dL (0.0-0.2); GFR 45.5; MAGNESIUM 1.7 mg/dL (1.8-2.4); POTASSIUM 3.8 mmol/L (3.5-5.1); TOTAL BILIRUBIN 0.1 mg/dL (0.2-1.0); TOTAL PROTEIN 7.2 g/dL (6.4-8.2)
[2018-12-21] MEDS ORDERED: ONDANSETRON PF 4 MG/2 ML VIAL. IV PRN (04:45)
[2018-12-21] MEDS ORDERED: MAGNESIUM SULFATE 2GM 50 ML IV ONE ×2 (04:45→09:00)
[2018-12-21] MEDS ORDERED: methylPREDNISolone SOD SUCC PF 125 MG/2 ML VIAL. IV ONE (05:00)
--- NOTE | 2018-12-21 06:15 | RAD ---
INDICATION: Dizziness with nausea and vomiting COMPARISON: None. TECHNIQUE: Axial CT images obtained through the head One or more of the following individualized dose reduction techniques were utilized for this examination: 1. Automated exposure control; 2. Adjustment of the mA and/or kV according to patient size; 3. Use of iterative reconstruction technique. FINDINGS: There is a region of encephalomalacia within the right cerebral hemisphere near the vertex with gliosis within the area. No evidence of hydrocephalus. Scattered foci low density within the white matter. No definite acute intracranial hemorrhage. IMPRESSION: 1. Region of encephalomalacia and gliosis within the right frontal region. Could be from a prior insult. 2. Scattered foci low density of white matter. Nonspecific but can be seen with chronic small vessel ischemic disease. Electronically signed by: Orlando Valenzuela MD (12/21/2018 6:11 AM) [id number]
[2018-12-21 06:31] VITALS: BP 102/63
--- NOTE | 2018-12-21 07:59 | RAD ---
CHEST PA LATERAL History: Nausea and vomiting Comparison: April 29, 2008 Findings: Single PA and 2 lateral views of the chest are submitted. There is no infiltrate, pneumothorax, or effusion. Pericardial cardiac silhouette is within normal limits in size. There is some atherosclerotic calcification near aortic arch. Impression: 1. There is no radiographic evidence of acute cardiopulmonary disease. Electronically signed by: Horacio Erazo MD (12/21/2018 7:57 AM) [facility]
[2018-12-21] MEDS: IPRATRPIUM/ALBUTEROL 0.5/2.5MG 3 ML NEBU. NEB SCH ×4 (08:00→20:39)
[2018-12-21] MEDS: IV RINGERS SOLUTION,LACTATED 1,000 ML IV SCH ×4 (08:53→23:30)
[2018-12-21] MEDS: FLUoxetine HCL 20 MG CAPSULE PO SCH (09:00)
[2018-12-21 10:36] VITALS: BP 124/58
[2018-12-21] MEDS: LEVOTHYROXINE 75 MCG TABLET PO SCH (11:00)
[2018-12-21] MEDS: MORPHINE ER 30 MG TABLET.ER PO PRN ×2 (12:58→20:08)
[2018-12-21 14:45] VITALS: BP 150/65
--- NOTE | 2018-12-21 17:36 | RAD ---
Supine, upright and decubitus abdomen HISTORY: Bloating, diarrhea Supine, upright and decubitus views were taken of the abdomen. There are fluid levels in the colon from a mild ileus or gastroenteritis. There is a clip from mild endoscopy at the hepatic flexure the colon. The patient's had previous surgery at the right colon. There are clips from a cholecystectomy. The patient's had previous lumbar fusion at L5-S1. There is no free air on the upright view. There is no small bowel obstruction. There are no abnormal calcifications. Decubitus view showed no free air. Lung bases appear clear. IMPRESSION: 1. Fluid levels in the colon. 2. No bowel obstruction or free air noted. Electronically signed by: Riley Lemus MD (12/21/2018 5:34 PM) [facility]
--- NOTE | 2018-12-21 17:56 | HP ---
ADMIT DATE: 12/21/2018 HISTORY OF PRESENT ILLNESS: The patient is a 63-year-old female patient who came to the Emergency Room complaining of nausea and vomiting for the last 2 days. She has also increased dyspnea started last night. She recently was seen at the [facility] for her UTI and started on Bactrim. She took the last dose last night around 10:00. She had also had diarrhea that started Tuesday morning and continued until Tuesday evening. She denied any bad food. Her pain is mostly in the epigastric area. She is also complaining that she is very bloated. She was extensively investigated in the Emergency Room and her urinalysis was essentially unremarkable. It was negative for nitrite and leukocyte esterase. There are no rbc's, no wbc's, and no bacteria. Her white cell count was normal. Her chemistry revealed that she has slightly elevated creatinine and hypomagnesemia. Otherwise, no other striking abnormality. Her prothrombin time was 10.3, INR of 1, aPTT 26 and D-dimer was slightly elevated at 0.51. Her chest x-ray was unremarkable and showed no radiographic evidence of acute cardiopulmonary disease. Her CT scan of the head showed that there is a region of encephalomalacia within the right cerebral hemisphere near the vertex with gliosis within the area. No evidence of hydrocephalus. There are scattered foci of low density within the white matter and with definite acute intracranial hemorrhage. The patient was admitted with recurrent bouts of nausea, vomiting, diarrhea, dehydration, hypomagnesemia. She was started on IV fluid and IV antibiotic, although I am not really sure that there is any focus of infection. PAST MEDICAL HISTORY: Significant for chronic obstructive pulmonary disease, hypertension, type 2 diabetes, hyperlipidemia. She is known to have cerebrovascular accident, history of chronic kidney disease, urinary retention. She has left hip abscess from which she grew MRSA and required incision and drainage. PAST SURGICAL HISTORY: Significant for back surgery, appendectomy, tonsillectomy, cholecystectomy, total abdominal hysterectomy, bilateral salpingo-oophorectomy. She has left wrist fracture, status post reconstruction. ALLERGIES: She is allergic to ADHESIVES and LATEX. FAMILY HISTORY: Remarkable for coronary artery disease. SOCIAL HISTORY: She is an ex-smoker; however, she does use marijuana occasionally, but no alcohol. MEDICATIONS: She is currently on following medications: She is on promethazine 25 mg per rectum as needed for nausea and vomiting, albuterol sulfate for ProAir 2 puffs 4 times a day, ferrous sulfate 325 mg daily, simvastatin 20 mg at bedtime, clonidine 0.1 mg at bedtime, amlodipine besylate 5 mg once a day, aspirin 81 mg once a day, morphine sulfate 60 mg every 8 hours, gabapentin 900 mg twice a day, fluoxetine 40 mg daily, mirtazapine 30 mg at bedtime, sumatriptan succinate for Imitrex 50 mg as needed for migraine headache, furosemide 40 mg daily, Symbicort 160/4.5 mcg inhaler 2 puffs twice a day, ketotifen fumarate for Zaditor 1 drop to both eyes twice a day, Flonase 1-2 sprays to each nostril once a day, ondansetron 4 mg 4 times a day, Protonix 40 mg once a day, lactobacillus rhamnosus for Culturelle 2 capsules 3 times a day. She is on conjugated estrogen 0.5 mg once a month. She is also on levothyroxine 75 mcg once a day, phenylephrine cocoa butter Preparation-H suppositories, oxybutynin chloride 5 mg daily, folic acid 1 mg once a day, vitamin D 5000 international unit twice a day. PHYSICAL EXAMINATION: GENERAL: On examining her, she looked well and was clearly in no apparent respiratory distress, slightly pale. No jaundice, cyanosis, or thyromegaly. No jugular venous distension. No limb edema. VITAL SIGNS: Her heart rate was 100, blood pressure was 130/61, temperature was 98.3, respiratory rate was 18, and oxygen saturation was 92% on 2 liters of oxygen. HEAD, EYES, EARS, NOSE AND THORAT: Normocephalic, atraumatic. NECK: Supple. HEART: Showed normal first and second heart sounds. No gallop or murmur. CHEST: Clear to auscultation. No crepitation or rhonchi. ABDOMEN: Markedly distended, soft, nontender. No guarding or rigidity. No organomegaly. All hernial orifices intact. Bowel sounds normal. NEUROLOGIC: She was awake, alert, responding appropriately. All cranial nerves intact. EXTREMITIES: She moves extremities without difficulty. She ambulates without assistance or assistive devices. LABORATORY DATA: Her lab work on arrival showed a white cell count of 8500, hemoglobin 14, hematocrit 42, MCV 86 and platelet count of 219,000 with normal manual differential. Her prothrombin time was 10.3, INR of 1, aPTT was 26, D-dimer was 0.51. Her serum sodium was 138, potassium 3.8, chloride 102, bicarbonate 21, anion gap of 15, BUN 11, creatinine was 1.2, estimated GFR was 45 mL per minute. Her glucose was 149. Calcium was 9.5, magnesium was 1.7. Total bilirubin, AST, ALT, alkaline phosphatase were normal. Her CK was 57. Her beta natriuretic peptide was 749. Total protein was 7.2, albumin 3.4. Amylase and lipase were normal. Her urinalysis showed the urine was yellow, clear with a pH of 6, specific gravity of 1.020. The urine was negative for glucose, ketones, trace of blood, negative for nitrite and leukocyte esterase. There are no rbc's, no wbc's, and no bacteria. Her toxic screen was positive for opiates, but negative for methadone, barbiturates, phencyclidine, amphetamine, methamphetamine, benzodiazepine, cocaine, cannabinoids, and ethyl alcohol. They stated her chest x-ray was unremarkable. CT scan of the head showed that she has a region of encephalomalacia within the right cerebral hemisphere. In summary, this is a 63-year-old female patient who came in with recurrent bouts of nausea, vomiting as well as diarrhea. She has also complaint of abdominal bloating. She was recently treated with Bactrim for her UTI. She started having diarrhea last Tuesday morning. It continued until yesterday evening; however, the stool is semi-formed. Then, she probably has some form of acute gastroenteritis. She also has COPD, type 2 diabetes mellitus, chronic kidney disease. PLAN: To continue with IV fluid, continue with antiemetic. I will repeat all her lab works tomorrow and obviously if her stool becomes liquid, we might have to send stool for C. diff and also stool for culture and sensitivity if she continued to be symptomatic. BRUCE BENZ MD DR: JACQUELIN/junie JOB#: [id number] / [id number]
[2018-12-21] MEDS ORDERED: MIRTAZAPINE 30 MG TABLET PO SCH (21:00)
[2018-12-21 21:30] VITALS: BP 123/66
[2018-12-22] MEDS: IV RINGERS SOLUTION,LACTATED 1,000 ML IV SCH (03:10)
[2018-12-22 05:18] VITALS: BP 130/71
[2018-12-22] MEDS: IPRATRPIUM/ALBUTEROL 0.5/2.5MG 3 ML NEBU. NEB SCH (05:24)
[2018-12-22] MEDS: LEVOTHYROXINE 75 MCG TABLET PO SCH (05:34)
[2018-12-22] MEDS ORDERED: ALBUTEROL SULFATE 2.5 MG/3 ML NEBU. NEB PRN (05:45)
[2018-12-22] MEDS: MORPHINE ER 30 MG TABLET.ER PO PRN (05:54)
[2018-12-22 06:30] LABS: BASO # 0.1 x10^3/uL (0.0-0.2); BASO % 1 % (0-3); EOS % 1 % (0-3); HEMATOCRIT 36.3 % (36.0-47.0); HEMOGLOBIN 11.8 g/dL (12.0-15.5); LYMPH # 2.3 x10^3/uL (1.0-4.8); LYMPH % 32 % (24-48); MEAN CORPUSCULAR HEMOGLOBIN 28 pg (25-35); MEAN CORPUSCULAR HGB CONC 32 g/dL (31-37); MEAN CORPUSCULAR VOLUME 87 fL (79-100); MONO # 0.5 x10^3/uL (0.0-1.1); MONO % 7 % (0-9); NEUT # 4.4 x10^3uL (1.8-7.7); NEUT % 60 % (31-73); PLATELET COUNT 198 x10^3/uL (140-400); RED BLOOD COUNT 4.19 x10^6/uL (3.50-5.40); RED CELL DISTRIBUTION WIDTH 14.7 % (11.5-14.5); WHITE BLOOD COUNT 7.3 x10^3/uL (4.0-11.0)
[2018-12-22 06:38] LABS: ALBUMIN 3.2 g/dL (3.4-5.0); ALBUMIN/GLOBULIN RATIO 1.1 (1.0-1.7); CALCIUM 9.1 mg/dL (8.5-10.1); GFR 56.2; POTASSIUM 4.3 mmol/L (3.5-5.1); TOTAL BILIRUBIN 0.1 mg/dL (0.2-1.0); TOTAL PROTEIN 6.2 g/dL (6.4-8.2)
[2018-12-22] MEDS ORDERED: APIX5TAB3 PO (07:23)
[2018-12-22] MEDS: FLUoxetine HCL 20 MG CAPSULE PO SCH (08:10)
[2018-12-22] MEDS ORDERED: LACTOBACILLUS RHAMNOSUS GG 1 CAPSULE. PO SCH (09:00)
--- NOTE | 2018-12-22 22:01 | DS ---
DATE OF DISCHARGE: 12/22/2018 ATTENDING PHYSICIAN: Dr. Skyler Garcia. FINAL DISCHARGE DIAGNOSES: 1. Gastroenteritis self-limiting, resolved. 2. Dehydration, rehydrate. 3. Chronic pain syndrome. 4. Chronic obstructive pulmonary disease, stable. 5. Recent urinary tract infection. 6. Type 2 diabetes. 7. Chronic kidney disease. HISTORY OF PRESENT ILLNESS: This is a 63-year-old female who was admitted through the ED with nausea, vomiting, some diarrhea, dehydration vague symptoms. She has underlying COPD. She was admitted for further treatment and evaluation. She was dehydrated. PHYSICAL EXAMINATION: Please see the dictated note. PERTINENT LABORATORY AND X-RAY STUDIES: On this admission, her electrolytes were stable. Sodium 141 mEq/L, potassium 4.3 mEq, creatinine is 1.0 mg/dL, white count is maintained at 8500 with a hemoglobin 14.8 g/dL. COURSE IN THE HOSPITAL: The patient was admitted with dehydration. She was given IV fluids and marked improvement. Diet was advanced. Home meds, especially her morphine was continued. She did fairly well. By the next hospital day, she was up and ambulating. She had no further GI symptoms and she was wanting to go home. We felt this is reasonable, therefore on the second hospital day, she was discharged home with continuation of her amlodipine, Eliquis, budesonide, vitamin D3, clonidine, estrogen in the form of Premarin, ferrous sulfate, Prozac 40 mg daily, fluticasone, folic acid, Lasix, Neurontin, Synthroid, Remeron, morphine 60 b.i.d., oxybutynin, Protonix, and sumatriptan p.r.n., Zocor 20 mg daily. For now, we have asked her to hold her lactobacillus, aspirin as she is already on Eliquis and various p.r.n. meds. Strong encouragement to follow up with her PCP. I recommended oral Gatorade to help with the rehydration. The patient was then discharged from our hospital in stable condition with assistance regarding followup care. LEOLA VAN MD DR: HUNTER/junie JOB#: [id number] / [id number]
--- NOTE | 2019-01-02 14:14 | EKG ---
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
== END 2018-12-22 10:51 | disposition home or self-care (01) | DRG 391 ==
LOC: ER 01:46 → 1 SOUTH 04:30
PROVIDERS: ADMIT Internal Medicine; ATTEND Internal Medicine
PROC: 5A09357 Assistance with Respiratory Ventilation, Less than 24 Consecutive Hours, Continuous Positive Airway Pressure (ICD-10-PCS; principal; 2018-12-22)
DX: K52.9 Noninfective gastroenteritis and colitis, unspecified (principal); N17.0 Acute kidney failure with tubular necrosis; I13.0 Hypertensive heart and chronic kidney disease with heart failure and stage 1 through stage 4 chronic kidney disease, or unspecified chronic kidney disease; I50.9 Heart failure, unspecified; E11.22 Type 2 diabetes mellitus with diabetic chronic kidney disease; E83.42 Hypomagnesemia; E86.0 Dehydration; F41.9 Anxiety disorder, unspecified; M19.90 Unspecified osteoarthritis, unspecified site; I25.10 Atherosclerotic heart disease of native coronary artery without angina pectoris; J44.9 Chronic obstructive pulmonary disease, unspecified; F17.210 Nicotine dependence, cigarettes, uncomplicated; F12.90 Cannabis use, unspecified, uncomplicated; E78.00 Pure hypercholesterolemia, unspecified; E78.5 Hyperlipidemia, unspecified; N18.9 Chronic kidney disease, unspecified; G89.4 Chronic pain syndrome; Z86.73 Personal history of transient ischemic attack (TIA), and cerebral infarction without residual deficits; Z90.710 Acquired absence of both cervix and uterus; Z82.49 Family history of ischemic heart disease and other diseases of the circulatory system; Z79.899 Other long term (current) drug therapy; Z90.49 Acquired absence of other specified parts of digestive tract; Z91.040 Latex allergy status; Z91.048 Other nonmedicinal substance allergy status
CPT/HCPCS: 36415; 70450; 71046; 74019; 80048; 80053; 80076; 80307; 81001; 82150; 82550; 82947; 83690; 83735; 83880; 84443; 84484; 85025; 85379; 85610; 85730; 93005; 94640; 96361; 96374; 99406; J0696; J2405; J2930; J3475; J7120; J7620; 99285-25

== ENCOUNTER 2019-01-01 01:06 | Emergency (ER) | payer OTHER ==
[~2019-01-01] VITALS: Ht 162.6 cm; Wt 99.0 kg
[~2019-01-01 01:06] MED LIST changes: +APIX5TAB3 PO
--- NOTE | 2019-01-01 01:19 | ED.ADGEN ---
Past History Past Medical History: Anxiety, Arthritis, Bronchitis, CAD, CHF, COPD, CVA, Diabetes, DVT, High Cholesterol, Hypertension, Kidney Infection, Pneumonia, Renal Failure, TIA, UTI, Other Past Surgical History: Cholecystectomy, Hysterectomy, Lumbar Laminectomy, Other Smoking: Cigarettes Alcohol Use: None Drug Use: Marijuana Adult General Chief Complaint Chief Complaint ".. You seen me the the last time I was admitted.. back lst of the month.. 12/21.. . I am still having problems with nausea... and feeling like I can't pee or pressure down there.. like a UTI.... and I really loaded up.. distended.. I ate some chilli with my .. It was Haley.. chilli.. and now I am so distended...I feel like a balloon that is ready to explode with gas.. I did take some Tums.. but I feel like .. I got to fart... it just not coming out down stairs... I sit on the stool for ever... and nothing came out...".. " I just finished up the last Bact[facility] tablet tonight.. [facility]... " HPI HPI Patient is a 63 year old female who presents with above hx and complaints dis tended abdomen and minimal urine production. Pt. has sensation she has to urinate but unable to produce a urine. Pt. just completed her course of Bactrim tonight, that she had received from [place]. Pt. has had one episode of vomiting. Has continued to have nausea and bloating complaints since admission on 12/21. Pt. was admitted to Dr. Garcia and Dr. Cobb on 12/21 for her nausea and vomiting complaints. At that time I had started her on Rocephin because past hx of renal insufficiency and her creat. was elevated at 1.2 on 12/21. Patient denies any travel or specific ill contacts. Denies any intake of bad food. Patient did eat chili tonight. Patient localizes her discomfort somewhat generalized lower abdomen. Pt. has passed some gas tonight. Patient after discharge on 12/22, she re- started her Bactiim because she felt she needed an antibiotic for her symptoms of UTI. Pt. Patient has significant history for anxiety, arthritis, bronchitis, COPD, CHF, DM, CVA, coronary artery disease, diabetes, elevated cholesterol, hypertension, kidney disease, Hx. MRSA and periodic urinary tract infections. . Patient is on anticoagulation. She has had previous abdomen surgeries cholecystectomy, hysterectomy, Lt wrist fx, and lumbar laminectomy. Patient does continue smoking and use marijuana occasionally. Review of Systems Review of Systems Constitutional: Denies fever or chills [] Eyes: Denies change in visual acuity, redness, or eye pain [] HENT: Denies nasal congestion or sore throat [] Respiratory: Denies cough or shortness of breath [] Cardiovascular: No additional information not addressed in HPI [] GI: Complaints of abdominal pain, nausea, gas distended. Denies bloody stools or diarrhea [] : Complaints of minimal urine productions. Musculoskeletal: Denies back pain or joint pain [] Integument: Denies rash or skin lesions [] Neurologic: Denies headache, focal weakness or sensory changes [] Endocrine: Denies polyuria or polydipsia [] All other systems were reviewed and found to be within normal limits, except as documented in this note. Family History Family History CADz Current Medications Current Medications Current Medications Medications (Trade) Dose Ordered Sig/Diana Start Time Stop Time Status Last Admin Dose Admin Lactated Ringer's 1,000 ml @ 1,000 mls/hr 1X ONCE 01/01/19 04:00 01/01/19 04:30 DC Magnesium Hydroxide (Milk Of Magnesia) 2,400 mg 1X ONCE 01/01/19 04:15 01/01/19 04:16 DC Allergies Allergies Allergies Coded Allergies Type Severity Reaction Last Updated Verified adhesive Allergy Severe Hives 04/29/18 Yes latex Allergy Severe 04/29/18 Yes Physical Exam Physical Exam Constitutional: Moderate acute distress, non-toxic appearance. [] HENT: Normocephalic, atraumatic, bilateral external ears normal, oropharynx dry, no oral exudates, nose normal. [] Eyes: PERRLA, EOMI, conjunctiva normal, no discharge. [] Neck: Normal range of motion, no tenderness, supple, no stridor. [] Cardiovascular: Tacycarda Heart rate regular rhythm, no murmur [] PMI to Lt. Lungs & Thorax: Bilateral breath sounds equal with scattered wheezes on au scultation [] Abdomen: Bowel sounds decreased , tympanic and distended, old surgery scars, soft, mild generalized tenderness, no masses, no pulsatile masses. [] Straight cath pt. only had min. urine out +/- 15 cc. Skin: Warm, dry, no erythema, no rash. Tattoos. Back: No tenderness, no CVA tenderness. [] Old surgery scar. Extremities: No tenderness, no cyanosis, no clubbing, ROM intact, no edema. Scar Lt wrist. Neurologic: Alert and oriented X 3, normal motor function, normal sensory function, no focal deficits noted. [] Psychologic: Affect anxious, judgement normal, mood normal. [] Current Patient Data Vital Signs Vital Signs Date Time Temp Pulse Resp B/P (MAP) Pulse Ox O2 Delivery O2 Flow Rate FiO2 01/01/19 04:20 94 18 147/65 (92) 96 Room Air 01/01/19 01:06 98.7 Lab Results Laboratory Tests Test 01/01/19 01:50 01/01/19 02:05 White Blood Count 12.4 x10^3/uL (4.0-11.0) H Red Blood Count 5.01 x10^6/uL (3.50-5.40) Hemoglobin 14.0 g/dL (12.0-15.5) Hematocrit 43.3 % (36.0-47.0) Mean Corpuscular Volume 87 fL (79-100) Mean Corpuscular Hemoglobin 28 pg (25-35) Mean Corpuscular Hemoglobin Concent 32 g/dL (31-37) Red Cell Distribution Width 14.3 % (11.5-14.5) Platelet Count 293 x10^3/uL (140-400) Neutrophils (%) (Auto) 78 % (31-73) H Lymphocytes (%) (Auto) 16 % (24-48) L Monocytes (%) (Auto) 4 % (0-9) Eosinophils (%) (Auto) 1 % (0-3) Basophils (%) (Auto) 1 % (0-3) Neutrophils # (Auto) 9.6 x10^3uL (1.8-7.7) H Lymphocytes # (Auto) 1.9 x10^3/uL (1.0-4.8) Monocytes # (Auto) 0.5 x10^3/uL (0.0-1.1) Eosinophils # (Auto) 0.1 x10^3/uL (0.0-0.7) Basophils # (Auto) 0.2 x10^3/uL (0.0-0.2) Prothrombin Time 9.6 SEC (9.4-11.4) Prothrombin Time INR 0.9 (0.9-1.1) PTT 23 SEC (23-33) D-Dimer (Radha) 1.19 mg/L (0.00-0.50) H Sodium Level 139 mmol/L (136-145) Potassium Level 4.4 mmol/L (3.5-5.1) Chloride Level 103 mmol/L (98-107) Carbon Dioxide Level 19 mmol/L (21-32) L Anion Gap 17 (6-14) H Blood Urea Nitrogen 18 mg/dL (7-20) Creatinine 1.3 mg/dL (0.6-1.0) H Estimated GFR (Cockcroft-Gault) 41.5 Glucose Level 170 mg/dL (70-99) H Calcium Level 9.7 mg/dL (8.5-10.1) Magnesium Level 1.8 mg/dL (1.8-2.4) Total Bilirubin 0.1 mg/dL (0.2-1.0) L Direct Bilirubin 0.1 mg/dL (0.0-0.2) Aspartate Amino Transferase (AST) 16 U/L (15-37) Alanine Aminotransferase (ALT) 29 U/L (14-59) Alkaline Phosphatase 119 U/L (46-116) H Creatine Kinase 52 U/L (26-192) Troponin I Quantitative < 0.017 ng/mL (0-0.055) MS-Rrs-C-Type Natriuretic Peptide 118 pg/mL (0-124) Total Protein 7.2 g/dL (6.4-8.2) Albumin 3.5 g/dL (3.4-5.0) Lipase 62 U/L (73-393) L Urine Collection Type U cath Urine Color Yellow Urine Clarity Clear Urine pH 5.5 Urine Specific [place] >=1.030 Urine Protein 30 mg/dl (NEG-TRACE) Urine Glucose (UA) Neg mg/dL (NEG) Urine Ketones (Stick) Neg mg/dL (NEG) Urine Blood Trace (NEG) Urine Nitrite Neg (NEG) Urine Bilirubin Neg (NEG) Urine Urobilinogen Dipstick 0.2 mg/dL (0.2 mg/dL) Urine Leukocyte Esterase Neg (NEG) Urine RBC 0 /HPF (0-2) Urine WBC 1-4 /HPF (0-4) Urine Squamous Epithelial Cells Few /LPF Urine Bacteria 0 /HPF (0-FEW) Urine Opiates Screen Pos (NEG) Urine Methadone Screen Neg (NEG) Urine Barbiturates Neg (NEG) Urine Phencyclidine Screen Neg (NEG) Urine Amphetamine/Methamphetamine Neg (NEG) Urine Benzodiazepines Screen Neg (NEG) Urine Cocaine Screen Neg (NEG) Urine Cannabinoids Screen Neg (NEG) Urine Ethyl Alcohol Neg (NEG) EKG EKG My interpretation EKG shows a sinus rhythm at 94 bpm. This nonspecific anterior lateral changes. But no findings acute STEMI of contralateral changes.[] Radiology/Procedures Radiology/Procedures My interpretation of acute abdomen shows increased stool colon., multiple surgery clips. Hardware lumbar. No air fluid levels consistent with ileus. No free air under diaphragm. Borderline cardiomegaly. COPD changes. No findings consistent with CHF Course & Med Decision Making Course & Med Decision Making Pertinent Labs and Imaging studies reviewed. (See chart for details) Discussed options of treatment with pt. Pt. elects to be discharged. Will give a one time dose of MOM. Bolus of LR 1000 cc. Pt. to go on clear fluid diet x 24-48 rhs. No solids or milk products. ( No chilli). Take meds as previously directed. Follow up with primary. Return if any concerns. Must continue her Eliquis. Encouraged pt. to stop smoking. [] Final Impression Final Impression 1. Abdomen pain- Constipation complaints and Gas distention 2. Elevation in her baseline creatinine from 1 at discharge on 12/22, now 1.3 3. Mild Elevation of Leukocytosis 12.4 4. Elevation of D-dimer, 1.19 however compliant with Eliquis 5 mg bid 5. Hx. COPD 6. Hx. HTN 7. Hx. DM = 170 8. Hx. of Chronic Nausea Complaints. 9, Mild Dehydration- BNP nl at 118 Dragon Disclaimer Dragon Disclaimer This electronic medical record was generated, in whole or in part, using a voice recognition dictation system. Discharge Summary Visit Information Final Diagnosis Problems Medical Problems: (1) Abdominal pain Status: Acute Brief Hospital Course Allergies Allergies Coded Allergies Type Severity Reaction Last Updated Verified adhesive Allergy Severe Hives 04/29/18 Yes latex Allergy Severe 04/29/18 Yes Vital Signs Vital Signs Date Time Temp Pulse Resp B/P (MAP) Pulse Ox O2 Delivery O2 Flow Rate FiO2 01/01/19 04:20 94 18 147/65 (92) 96 Room Air 01/01/19 01:06 98.7 Lab Results Laboratory Tests Test 01/01/19 01:50 01/01/19 02:05 White Blood Count 12.4 x10^3/uL (4.0-11.0) Red Blood Count 5.01 x10^6/uL (3.50-5.40) Hemoglobin 14.0 g/dL (12.0-15.5) Hematocrit 43.3 % (36.0-47.0) Mean Corpuscular Volume 87 fL (79-100) Mean Corpuscular Hemoglobin 28 pg (25-35) Mean Corpuscular Hemoglobin Concent 32 g/dL (31-37) Red Cell Distribution Width 14.3 % (11.5-14.5) Platelet Count 293 x10^3/uL (140-400) Neutrophils (%) (Auto) 78 % (31-73) Lymphocytes (%) (Auto) 16 % (24-48) Monocytes (%) (Auto) 4 % (0-9) Eosinophils (%) (Auto) 1 % (0-3) Basophils (%) (Auto) 1 % (0-3) Neutrophils # (Auto) 9.6 x10^3uL (1.8-7.7) Lymphocytes # (Auto) 1.9 x10^3/uL (1.0-4.8) Monocytes # (Auto) 0.5 x10^3/uL (0.0-1.1) Eosinophils # (Auto) 0.1 x10^3/uL (0.0-0.7) Basophils # (Auto) 0.2 x10^3/uL (0.0-0.2) Prothrombin Time 9.6 SEC (9.4-11.4) Prothromb Time International Ratio 0.9 (0.9-1.1) Activated Partial Thromboplast Time 23 SEC (23-33) D-Dimer (Radha) 1.19 mg/L (0.00-0.50) Sodium Level 139 mmol/L (136-145) Potassium Level 4.4 mmol/L (3.5-5.1) Chloride Level 103 mmol/L (98-107) Carbon Dioxide Level 19 mmol/L (21-32) Anion Gap 17 (6-14) Blood Urea Nitrogen 18 mg/dL (7-20) Creatinine 1.3 mg/dL (0.6-1.0) Estimated GFR (Cockcroft-Gault) 41.5 Glucose Level 170 mg/dL (70-99) Calcium Level 9.7 mg/dL (8.5-10.1) Magnesium Level 1.8 mg/dL (1.8-2.4) Total Bilirubin 0.1 mg/dL (0.2-1.0) Direct Bilirubin 0.1 mg/dL (0.0-0.2) Aspartate Amino Transf (AST/SGOT) 16 U/L (15-37) Alanine Aminotransferase (ALT/SGPT) 29 U/L (14-59) Alkaline Phosphatase 119 U/L (46-116) Creatine Kinase 52 U/L (26-192) Troponin I Quantitative < 0.017 ng/mL (0-0.055) XB-Daa-E-Type Natriuretic Peptide 118 pg/mL (0-124) Total Protein 7.2 g/dL (6.4-8.2) Albumin 3.5 g/dL (3.4-5.0) Lipase 62 U/L (73-393) Urine Collection Type U cath Urine Color Yellow Urine Clarity Clear Urine pH 5.5 Urine Specific [place] >=1.030 Urine Protein 30 mg/dl (NEG-TRACE) Urine Glucose (UA) Neg mg/dL (NEG) Urine Ketones (Stick) Neg mg/dL (NEG) Urine Blood Trace (NEG) Urine Nitrite Neg (NEG) Urine Bilirubin Neg (NEG) Urine Urobilinogen Dipstick 0.2 mg/dL (0.2 mg/dL) Urine Leukocyte Esterase Neg (NEG) Urine RBC 0 /HPF (0-2) Urine WBC 1-4 /HPF (0-4) Urine Squamous Epithelial Cells Few /LPF Urine Bacteria 0 /HPF (0-FEW) Urine Opiates Screen Pos (NEG) Urine Methadone Screen Neg (NEG) Urine Barbiturates Neg (NEG) Urine Phencyclidine Screen Neg (NEG) Urine Amphetamine/Methamphetamine Neg (NEG) Urine Benzodiazepines Screen Neg (NEG) Urine Cocaine Screen Neg (NEG) Urine Cannabinoids Screen Neg (NEG) Urine Ethyl Alcohol Neg (NEG) Brief Hospital Course Ms. Arthur is a 63 old female who presented with abdomen distention and decrease urine out put after eating chilli at [email or web address]. Discharge Information Condition at Discharge: Improved, Stable Disposition/Orders: D/C to Home Dischare Medications Current Medications Lactated Ringer's 1,000 ml @ 100 mls/hr Q10H IV Last administered on 01/01/19at 02:29; Admin Dose 100 MLS/HR; Start 01/01/19 at 02:00; Stop 01/01/19 at 04:30; Status DC Lactated Ringer's 1,000 ml @ 1,000 mls/hr 1X ONCE IV ; Start 01/01/19 at 04:00; Stop 01/01/19 at 04:30; Status DC Magnesium Hydroxide (Milk Of Magnesia) 2,400 mg 1X ONCE PO Last administered on 01/01/19at 03:39; Admin Dose 2,400 MG; Start 01/01/19 at 04:00; Stop 01/01/19 at 04:01; Status DC Magnesium Hydroxide (Milk Of Magnesia) 2,400 mg 1X ONCE PO ; Start 01/01/19 at 04:15; Stop 01/01/19 at 04:16; Status DC Active Scripts Active Reported Eliquis (Apixaban) 5 Mg Tablet 1 Tab PO BID Simvastatin 20 Mg Tablet 20 Mg PO HS LAST DOSE GIVEN: DATE: YESTERDAY TIME: AT BEDTIME NEXT DOSE DUE: DATE: TODAY TIME: AT BEDTIME Pantoprazole Sodium 40 Mg Tablet.dr 40 Mg PO BIDBFRMEAL LAST DOSE GIVEN: DATE: TODAY TIME: BEFORE BREAKFAST NEXT DOSE DUE: DATE: TODAY TIME: BEFORE DINNER Vitamin D3 (Cholecalciferol (Vitamin D3)) 5,000 Unit Tablet 5,000 Unit PO BID LAST DOSE GIVEN: DATE: TODAY TIME: AM NEXT DOSE DUE: DATE: TODAY TIME: PM Gabapentin (Gabapentin) 300 Mg Capsule 900 Mg PO BID LAST DOSE GIVEN: DATE: TODAY TIME: AM NEXT DOSE DUE: DATE: TODAY TIME: PM Furosemide 40 Mg Tablet 40 Mg PO DAILY LAST DOSE GIVEN: DATE: TODAY TIME: AM NEXT DOSE DUE: DATE: TOMORROW TIME: AM Imitrex (Sumatriptan Succinate) 50 Mg Tablet 50 Mg PO PRN PRN NOT GIVEN TODAY NEXT DOSE DUE: DATE: TODAY TIME: IF AND WHEN NEEDED Oxybutynin Chloride 5 Mg Tablet 5 Mg PO DAILY LAST DOSE GIVEN: DATE: TODAY TIME: AM NEXT DOSE DUE: DATE: TOMORROW TIME: AM Morphine Sulfate 30 Mg Tablet 60 Mg PO PRN Q8HRS PRN LAST DOSE GIVEN: DATE: TIME: 10 AM NEXT DOSE DUE: DATE: TODAY TIME: AFTER 6 PM IF NEEDED Remeron (Mirtazapine) 30 Mg Tablet 30 Mg PO QHS LAST DOSE GIVEN: DATE: YESTERDAY TIME: AT BEDTIME NEXT DOSE DUE: DATE: TODAY TIME: AT BEDTIME Levothyroxine Sodium 75 Mcg Tablet 75 Mcg PO DAILY07 LAST DOSE GIVEN: DATE: TIME: BEFORE BREAKFAST NEXT DOSE DUE: DATE: TOMORR TIME: BEFORE BREAKFAST Zaditor (Ketotifen Fumarate) 5 Ml Drops 1 Drop EACHEYE BID LAST DOSE GIVEN: DATE: TIME: AM NEXT DOSE DUE: DATE: TIME: PM Folic Acid 1 Mg Tablet 1 Tab PO DAILY LAST DOSE GIVEN: DATE: TODAY TIME: AM NEXT DOSE DUE: DATE: TOMORROW TIME: AM Fluticasone Propionate Nasal [place] (Fluticasone Propionate) 16 Gm [place].susp 2 [place] NS DAILY LAST DOSE GIVEN: DATE: TIME: AM NEXT DOSE DUE: DATE: ORR TIME: AM Fluoxetine Hcl 40 Mg Capsule 40 Mg PO DAILY LAST DOSE GIVEN: DATE: TIME: AM NEXT DOSE DUE: DATE: TIME: AM Ferrous Sulfate 325 Mg Tablet 325 Mg PO DAILY LAST DOSE GIVEN: DATE: TIME: AM NEXT DOSE DUE: DATE: TOMORR TIME: AM Premarin (Estrogens, Conjugated) 0.625 Mg Tablet 0.5 Mg PO QMTH NOT GIVEN IN THE HOSPITAL NEXT DOSE DUE: DATE: RESTART ON YOUR NORMAL DAY Clonidine Hcl 0.1 Mg Tablet 0.1 Mg PO QHS LAST DOSE GIVEN: DATE: YESTERDAY TIME: AT BEDTIME NEXT DOSE DUE: DATE: TODAY TIME: AT BEDTIME Symbicort 160-4.5 Mcg Inhaler (Budesonide/Formoterol Fumarate) 10.2 Gm Hfa.aer.ad 2 Puff IH BID NOT GIVEN IN THE HOSPITAL NEXT DOSE DUE: DATE: RESTART TONITE TIME: AT BEDTIME Amlodipine Besylate 5 Mg Tablet 5 Mg PO DAILY LAST DOSE GIVEN: DATE: TODAY TIME: AM NEXT DOSE DUE: DATE: TOMORROW TIME: AM Dragon Disclaimer This chart was dictated in whole or in part using Voice Recognition software in a busy, high-work load, and often noisy Emergency Department environment. It m ay contain unintended and wholly unrecognized errors or omissions. SIRI YAO MD Jan 01, 2019 01:19
[2019-01-01 02:24] LABS: BASO # 0.2 x10^3/uL (0.0-0.2); BASO % 1 % (0-3); EOS # 0.1 x10^3/uL (0.0-0.7); EOS % 1 % (0-3); HEMATOCRIT 43.3 % (36.0-47.0); LYMPH # 1.9 x10^3/uL (1.0-4.8); LYMPH % 16 % (24-48); MEAN CORPUSCULAR HEMOGLOBIN 28 pg (25-35); MEAN CORPUSCULAR HGB CONC 32 g/dL (31-37); MEAN CORPUSCULAR VOLUME 87 fL (79-100); MONO # 0.5 x10^3/uL (0.0-1.1); MONO % 4 % (0-9); NEUT # 9.6 x10^3uL (1.8-7.7); NEUT % 78 % (31-73); PLATELET COUNT 293 x10^3/uL (140-400); RED BLOOD COUNT 5.01 x10^6/uL (3.50-5.40); RED CELL DISTRIBUTION WIDTH 14.3 % (11.5-14.5); WHITE BLOOD COUNT 12.4 x10^3/uL (4.0-11.0)
[2019-01-01] MEDS: IV RINGERS SOLUTION,LACTATED 1,000 ML IV SCH ×2 (02:25→02:29)
[2019-01-01 02:34] LABS: BACTERIA,URINE 0 /HPF (0-FEW); BILIRUBIN,URINE NEG (NEG); CLARITY,URINE CLEAR; COLOR,URINE YELLOW; GLUCOSE,URINE NEG (NEG); NITRITE,URINE NEG (NEG); RBC,URINE 0 /HPF (0-2); SQUAMOUS EPITHELIAL CELL,UR FEW /LPF; UROBILINOGEN,URINE 0.2 mg/dL (0.2 mg/dL)
[2019-01-01 02:39] LABS: AMPHETAMINE/METHAMPHETAMINE NEG (NEG)
[2019-01-01 02:40] LABS: BARBITURATES NEG (NEG); BENZODIAZEPINES NEG (NEG); CANNABINOIDS NEG (NEG); COCAINE NEG (NEG); METHADONE NEG (NEG); OPIATES POS (NEG); PHENCYCLIDINE NEG (NEG)
--- NOTE | 2019-01-01 02:43 | EKG ---
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
[2019-01-01 03:15] LABS: TOTAL PROTEIN 7.2 g/dL (6.4-8.2)
[2019-01-01 03:16] LABS: ALBUMIN 3.5 g/dL (3.4-5.0); CALCIUM 9.7 mg/dL (8.5-10.1); CREATININE 1.3 mg/dL (0.6-1.0); DIRECT BILIRUBIN 0.1 mg/dL (0.0-0.2); GFR 41.5; MAGNESIUM 1.8 mg/dL (1.8-2.4); POTASSIUM 4.4 mmol/L (3.5-5.1); TOTAL BILIRUBIN 0.1 mg/dL (0.2-1.0)
[2019-01-01] MEDS ORDERED: IV RINGERS SOLUTION,LACTATED 1,000 ML IV ONE (04:00)
[2019-01-01] MEDS ORDERED: MAGNESIUM HYDROXIDE 2,400 MG/30 ML ORAL.SUSP. PO ONE ×2 (04:00→04:15)
--- NOTE | 2019-01-01 04:17 | RAD ---
ACUTE ABDOMEN SERIES History: Abdominal pain. History of cholecystectomy. Comparison: KUB, upright and supine, December 21, 2018. Findings: Frontal chest and supine and upright views of the abdomen. Atherosclerotic aortic arch. The cardiac size is normal. There is no pleural effusion or pneumothorax. The lungs are clear. No pneumoperitoneum is identified. No dilated air-filled loops of bowel are seen. There is a paucity of bowel gas, decreasing sensitivity. Bowel gas pattern is nonobstructive. Redemonstrated surgical clips in the right abdomen. Suture material right lower abdomen. Fusion hardware of L5-S1 redemonstrated. No obvious organomegaly. Bones unremarkable. IMPRESSION: 1. No acute cardiopulmonary process. 2. Nonobstructive bowel gas pattern. Electronically signed by: Livan Valentine MD (01/01/2019 4:14 AM) [id number]
[2019-01-01 04:20] VITALS: BP 147/65
== END 2019-01-01 04:20 | disposition home or self-care (01) ==
LOC: ER 01:06
DX: K59.00 Constipation, unspecified (principal); D72.829 Elevated white blood cell count, unspecified; R79.1 Abnormal coagulation profile; J44.9 Chronic obstructive pulmonary disease, unspecified; I10 Essential (primary) hypertension; E86.0 Dehydration; R79.89 Other specified abnormal findings of blood chemistry; M19.90 Unspecified osteoarthritis, unspecified site; I25.10 Atherosclerotic heart disease of native coronary artery without angina pectoris; E78.00 Pure hypercholesterolemia, unspecified; I13.0 Hypertensive heart and chronic kidney disease with heart failure and stage 1 through stage 4 chronic kidney disease, or unspecified chronic kidney disease; E11.22 Type 2 diabetes mellitus with diabetic chronic kidney disease; N18.9 Chronic kidney disease, unspecified; I50.9 Heart failure, unspecified; F17.210 Nicotine dependence, cigarettes, uncomplicated; Z90.49 Acquired absence of other specified parts of digestive tract; Z90.710 Acquired absence of both cervix and uterus; Z87.440 Personal history of urinary (tract) infections; Z86.73 Personal history of transient ischemic attack (TIA), and cerebral infarction without residual deficits; Z91.040 Latex allergy status; Z88.8 Allergy status to other drugs, medicaments and biological substances
CPT/HCPCS: 36415; 74022; 80048; 80076; 80307; 81001; 82550; 83690; 83735; 83880; 84443; 84484; 85025; 85379; 85610; 85730; 93005; 96360; 96361; 99285; J7120

== ENCOUNTER 2019-01-15 11:55 | Emergency (ER) | payer OTHER ==
[2019-01-15 12:06] VITALS: BP 190/100
--- NOTE | 2019-01-15 12:16 | PHYS DOC ---
Past History Past Medical History: High Cholesterol, Hypothyroid, Stroke, Other Additional Past Medical Histor: pulmonary embolism Past Surgical History: Appendectomy, Cholecystectomy, Other Smoking: Cigarettes, Less than 1pk/day Alcohol Use: None Drug Use: None Adult General Chief Complaint Chief Complaint: RECTAL BLEED HPI HPI Patient is a 63-year-old female presents with rectal bleeding. This started approximately 2 hours ago. Patient is concerned because she had to [facility] for similar symptoms. Patient is on eliquis due to history of pulmonary embolism in April 2018. She denies any rashes or bruising. She notes some lower abdominal cramping. Denies any vaginal bleeding. Denies any dysuria. Nothing makes the symptoms better or worse.[] Review of Systems Review of Systems Constitutional: Denies fever or chills [] Eyes: Denies change in visual acuity, redness, or eye pain [] HENT: Denies nasal congestion or sore throat [] Respiratory: Denies cough or shortness of breath [] Cardiovascular: No chest pain or palpitations[] GI: See history of present illness[] : Denies dysuria or hematuria [] Musculoskeletal: Denies back pain or joint pain [] Integument: Denies rash or skin lesions [] Neurologic: Denies headache, focal weakness or sensory changes [] Endocrine: Denies polyuria or polydipsia [] All other systems were reviewed and found to be within normal limits, except as documented in this note. Allergies Allergies Allergies Coded Allergies Type Severity Reaction Last Updated Verified adhesive Allergy Severe Hives 04/29/18 Yes latex Allergy Severe 04/29/18 Yes Physical Exam Physical Exam Constitutional: Well developed, well nourished, no acute distress, non-toxic appearance. [] HENT: Normocephalic, atraumatic, bilateral external ears normal, oropharynx moist, no oral exudates, nose normal. [] Eyes: PERRLA, EOMI, conjunctiva normal, no discharge. [] Neck: Normal range of motion, no tenderness, supple, no stridor. [] Cardiovascular:Heart rate is slightly tachycardic normal 100s with a regular rhythm, no murmur [] Lungs & Thorax: Bilateral breath sounds clear to auscultation [] Abdomen: Bowel sounds normal, soft, no tenderness, no masses, no pulsatile masses. Rectal exam performed with stock worker showed some external hemorrhoids without bleeding. Scattered flecks of blood on the specimen sent to laboratory for Hemoccult.[] Skin: Warm, dry, no erythema, no rash. [] Back: No tenderness, no CVA tenderness. [] Extremities: No tenderness, no cyanosis, no clubbing, ROM intact, no edema. [] Neurologic: Alert and oriented X 3, normal motor function, normal sensory function, no focal deficits noted. [] Psychologic: Affect normal, judgement normal, mood normal. [] Current Patient Data Vital Signs Vital Signs Date Time Temp Pulse Resp B/P (MAP) Pulse Ox O2 Delivery O2 Flow Rate FiO2 01/15/19 12:06 98.5 110 26 94 Room Air EKG EKG [] Radiology/Procedures Radiology/Procedures PROCEDURE: CT ABDOMEN PELVIS WO CONTRAST EXAM: Abdomen and pelvis CT without intravenous contrast. HISTORY: Rectal bleeding. TECHNIQUE: Computed tomographic images of the abdomen and pelvis were obtained without contrast. Multiplanar reformatting was performed. *One or more of the following individualized dose reduction techniques were utilized for this examination: 1. Automated exposure control. 2. Adjustment of the mA and/or kV according to patient size. 3. Use of iterative reconstruction technique. COMPARISON: 04/21/2018. FINDINGS: Evaluation of the lower thorax demonstrates atelectasis and scarring. There is a small fat-containing left diaphragmatic hernia. There is hepatomegaly. No suspicious hepatic lesion is seen. The gallbladder is surgically absent. There is common bile duct dilatation likely due to reservoir effect status post cholecystectomy. The pancreas, spleen and adrenal glands are unremarkable. There is an incidental splenule along the inferior aspect of the spleen. The kidneys are normal in size. There is no hydronephrosis or solid or cystic renal lesion. The appendix is surgically absent. There are few sigmoid diverticula. Note is made that the inferior aspect of the rectum and the anus are excluded from the [id number]. The uterus is surgically absent. The bladder is decompressed. There is no lymphadenopathy. There is instrumented fusion and laminectomy decompression at the lumbosacral junction. There is increased density within the lateral left hip soft tissues likely due to postoperative scarring. IMPRESSION: 1. Few distal colonic diverticula. There is no evidence of diverticulitis. The inferior most aspect of the rectum and anus are excluded from the [id number]-ui-soov. 2. Mild hepatomegaly. 3. Biliary ductal dilatation, likely due to reservoir effect status post cholecystectomy.[] Course & Med Decision Making Course & Med Decision Making Pertinent Labs and Imaging studies reviewed. (See chart for details) ED course: Patient arrived, was placed in bed, and tolerated exam well. She was transported to and from radiology with any complications. After return of the lab and imaging studies, these were discussed with patient and family who voiced understanding. Consultation was made with the hospitalist service who elected to transfer the patient to [place] given the GI services available there not available here at [facility]. Patient was agreeable with transfer. She was transported in improved condition. Medical decision making: Patient with GI bleeding who was on a blood thinner. Currently vital signs are stable and hemoglobin is stable. Concern for possibility of a bleeding diverticula versus her history of a blood vessel having to be clamped last month. This will need further evaluation beyond with the emergency department can provide.[] Dragon Disclaimer Dragon Disclaimer This electronic medical record was generated, in whole or in part, using a voice recognition dictation system. Departure Departure: Impression: Primary Impression: Rectal bleeding Disposition: 05 TRANSFER OTHER Admitting Physician: Skyler Garcia Condition: IMPROVED Referrals: PCP,DANIEL (PCP) SUZAN VÁZQUEZ DO Jan 15, 2019 12:16
--- NOTE | 2019-01-15 12:43 | RAD ---
EXAM: Abdomen and pelvis CT without intravenous contrast. HISTORY: Rectal bleeding. TECHNIQUE: Computed tomographic images of the abdomen and pelvis were obtained without contrast. Multiplanar reformatting was performed. *One or more of the following individualized dose reduction techniques were utilized for this examination: 1. Automated exposure control. 2. Adjustment of the mA and/or kV according to patient size. 3. Use of iterative reconstruction technique. COMPARISON: 04/21/2018. FINDINGS: Evaluation of the lower thorax demonstrates atelectasis and scarring. There is a small fat-containing left diaphragmatic hernia. There is hepatomegaly. No suspicious hepatic lesion is seen. The gallbladder is surgically absent. There is common bile duct dilatation likely due to reservoir effect status post cholecystectomy. The pancreas, spleen and adrenal glands are unremarkable. There is an incidental splenule along the inferior aspect of the spleen. The kidneys are normal in size. There is no hydronephrosis or solid or cystic renal lesion. The appendix is surgically absent. There are few sigmoid diverticula. Note is made that the inferior aspect of the rectum and the anus are excluded from the [id number]. The uterus is surgically absent. The bladder is decompressed. There is no lymphadenopathy. There is instrumented fusion and laminectomy decompression at the lumbosacral junction. There is increased density within the lateral left hip soft tissues likely due to postoperative scarring. IMPRESSION: 1. Few distal colonic diverticula. There is no evidence of diverticulitis. The inferior most aspect of the rectum and anus are excluded from the [id number]. 2. Mild hepatomegaly. 3. Biliary ductal dilatation, likely due to reservoir effect status post cholecystectomy. Electronically signed by: Lilliam Abraham MD (01/15/2019 12:40 PM) [place] [id number]
[2019-01-15 12:46] LABS: BASO # 0.1 x10^3/uL (0.0-0.2); BASO % 1 % (0-3); EOS # 0.1 x10^3/uL (0.0-0.7); EOS % 1 % (0-3); HEMATOCRIT 42.3 % (36.0-47.0); HEMOGLOBIN 13.9 g/dL (12.0-15.5); LYMPH % 36 % (24-48); MEAN CORPUSCULAR HEMOGLOBIN 28 pg (25-35); MEAN CORPUSCULAR HGB CONC 33 g/dL (31-37); MEAN CORPUSCULAR VOLUME 86 fL (79-100); MONO # 0.4 x10^3/uL (0.0-1.1); MONO % 5 % (0-9); NEUT # 4.6 x10^3uL (1.8-7.7); NEUT % 56 % (31-73); PLATELET COUNT 262 x10^3/uL (140-400); RED BLOOD COUNT 4.94 x10^6/uL (3.50-5.40); RED CELL DISTRIBUTION WIDTH 14.1 % (11.5-14.5); WHITE BLOOD COUNT 8.3 x10^3/uL (4.0-11.0)
[2019-01-15 12:59] LABS: CALCIUM 9.3 mg/dL (8.5-10.1); GFR 56.2
[2019-01-15 13:02] LABS: POTASSIUM 4.4 mmol/L (3.5-5.1)
[2019-01-15 13:20] LABS: FECAL OB PT POSITIVE (NEG)
[2019-01-15 14:56] LABS: BILIRUBIN,URINE NEG (NEG); CLARITY,URINE HAZY; COLOR,URINE YELLOW; GLUCOSE,URINE NEG (NEG); NITRITE,URINE NEG (NEG); UROBILINOGEN,URINE 0.2 mg/dL (0.2 mg/dL)
[2019-01-15 14:57] LABS: BACTERIA,URINE MOD /HPF (0-FEW); SQUAMOUS EPITHELIAL CELL,UR MANY /LPF; WBC,URINE RARE /HPF (0-4)
== END 2019-01-15 14:41 | disposition short-term general hospital (02) ==
LOC: ER 11:55
DX: K62.5 Hemorrhage of anus and rectum (principal); K64.4 Residual hemorrhoidal skin tags; R16.0 Hepatomegaly, not elsewhere classified; E78.00 Pure hypercholesterolemia, unspecified; E03.9 Hypothyroidism, unspecified; F17.210 Nicotine dependence, cigarettes, uncomplicated; Z86.73 Personal history of transient ischemic attack (TIA), and cerebral infarction without residual deficits; Z86.711 Personal history of pulmonary embolism; Z79.899 Other long term (current) drug therapy; Z90.89 Acquired absence of other organs; Z90.49 Acquired absence of other specified parts of digestive tract; Z88.8 Allergy status to other drugs, medicaments and biological substances; Z91.040 Latex allergy status
CPT/HCPCS: 36415; 74176; 80048; 81001; 82274; 85025; 85610; 85730; 87086; 99285-25

== ENCOUNTER 2019-02-08 13:49 | Emergency (ER) | payer OTHER ==
[~2019-02-08] VITALS: Ht 162.6 cm; Wt 99.0 kg
[2019-02-08] MEDS ORDERED: IV NORMAL SALINE 1,000ML 1,000 ML IV ONE (14:30)
--- NOTE | 2019-02-08 15:21 | RAD ---
CHEST AP ONLY History: Dizziness. Comparison: December 21, 2018 Findings: Left basilar subsegmental atelectasis. No new consolidation. No pleural effusion. Normal heart size. Impression: 1. Left basilar subsegmental atelectasis. Electronically signed by: Arian Rivera DO (02/08/2019 3:18 PM) [facility]
[2019-02-08 15:22] LABS: BASO # 0.1 x10^3/uL (0.0-0.2); BASO % 1 % (0-3); EOS # 0.1 x10^3/uL (0.0-0.7); EOS % 1 % (0-3); HEMATOCRIT 41.9 % (36.0-47.0); HEMOGLOBIN 13.7 g/dL (12.0-15.5); LYMPH # 2.1 x10^3/uL (1.0-4.8); LYMPH % 27 % (24-48); MEAN CORPUSCULAR HEMOGLOBIN 28 pg (25-35); MEAN CORPUSCULAR HGB CONC 33 g/dL (31-37); MEAN CORPUSCULAR VOLUME 87 fL (79-100); MONO # 0.5 x10^3/uL (0.0-1.1); MONO % 6 % (0-9); NEUT % 65 % (31-73); PLATELET COUNT 275 x10^3/uL (140-400); RED BLOOD COUNT 4.85 x10^6/uL (3.50-5.40); RED CELL DISTRIBUTION WIDTH 14.2 % (11.5-14.5); WHITE BLOOD COUNT 7.7 x10^3/uL (4.0-11.0)
--- NOTE | 2019-02-08 15:24 | PHYS DOC ---
Past History Past Medical History: High Cholesterol, Hypothyroid, Stroke, Other Additional Past Medical Histor: pulmonary embolism Past Surgical History: Appendectomy, Cholecystectomy, Other Smoking: Cigarettes, Less than 1pk/day Alcohol Use: None Drug Use: None Adult General Chief Complaint Chief Complaint: DIZZY/LIGHT HEADED HPI HPI 63-year-old female presents with dizziness and general fatigue for last couple d ays. The patient is unsure why she fell in this way. She denies chest pain or shortness of breath. She does have 2 insect bites one on her right posterior leg and the other on her right lower lip. They are pruritic. The patient denies dysuria or urinary frequency, but she does self straight cathetering. She denies fever or chills. She has been eating and drinking normally. Review of Systems Review of Systems Constitutional: Denies fever or chills. [] Eyes: Denies change in visual acuity, redness, or eye pain [] HENT: Denies nasal congestion or sore throat [] Respiratory: Denies cough or shortness of breath [] Cardiovascular: No additional information not addressed in HPI [] GI: Denies abdominal pain, nausea, vomiting, bloody stools or diarrhea [] : Denies dysuria or hematuria [] Musculoskeletal: Denies back pain or joint pain [] Integument: Insect bites[] Neurologic: Denies headache, focal weakness or sensory changes [] Endocrine: Denies polyuria or polydipsia [] All other systems were reviewed and found to be within normal limits, except as documented in this note. Current Medications Current Medications Current Medications Medications (Trade) Dose Ordered Sig/[facility] Start Time Stop Time Status Last Admin Dose Admin Sodium Chloride 1,000 ml @ 1,000 mls/hr 1X ONCE 02/08/19 14:30 02/08/19 15:29 Allergies Allergies Allergies Coded Allergies Type Severity Reaction Last Updated Verified adhesive Allergy Severe Hives 04/29/18 Yes latex Allergy Severe 04/29/18 Yes Physical Exam Physical Exam Constitutional: Well developed, well nourished, no acute distress, non-toxic appearance. [] HENT: Normocephalic, atraumatic, bilateral external ears normal, oropharynx mois t, no oral exudates, nose normal. [] Eyes: PERRLA, EOMI, conjunctiva normal, no discharge. [] Neck: Normal range of motion, no tenderness, supple, no stridor. [] Cardiovascular:Heart rate regular rhythm, no murmur [] Lungs & Thorax: Bilateral breath sounds clear to auscultation [] Abdomen: Bowel sounds normal, soft, no tenderness, no masses, no pulsatile masses. [] Skin: Insect bite right posterior leg and right lower lip. No current sign of infection.[] Back: No tenderness, no CVA tenderness. [] Extremities: No tenderness, no cyanosis, no clubbing, ROM intact, no edema. [] Neurologic: Alert and oriented X 3, normal motor function, normal sensory function, no focal deficits noted. [] Psychologic: Affect normal, judgement normal, mood normal. [] EKG EKG [] Radiology/Procedures Radiology/Procedures [] Impressions: CHEST AP ONLY History: Dizziness. Comparison: December 21, 2018 Findings: Left basilar subsegmental atelectasis. No new consolidation. No pleural effusion. Normal heart size. Impression: 1. Left basilar subsegmental atelectasis. Electronically signed by: Momo Lowry DO (02/08/2019 3:18 PM) [facility] DICTATED AND SIGNED BY: MOMO LOWRY DO DATE: 02/08/19 1518 CC: AUGUSTIN DORSEY DO; CHASE BATISTA ~ Course & Med Decision Making Course & Med Decision Making Pertinent Labs and Imaging studies reviewed. (See chart for details) The patient's labs are unremarkable except for slightly red but creatinine 1.3. Her chest x-ray shows some left basilar atelectasis, but no consolidation. Her vitals of been normal. Her urinalysis is negative for infection. I'm not sure what is causing the patient's dizziness and fatigue. He does not appear to be life-threatening. I advised that she follow with her PCP. She is stable for discharge at this time. [] Dragon Disclaimer Dragon Disclaimer This electronic medical record was generated, in whole or in part, using a voice recognition dictation system. Departure Departure: Impression: Primary Impression: Dizziness Additional Impression: Atelectasis of left lung Disposition: HOME, SELF-CARE Condition: STABLE Referrals: CHASE BATISTA (PCP) Patient Instructions: Dizziness, [id number] Problem Qualifiers AUGUSTIN DORSEY DO Feb 08, 2019 15:24
[2019-02-08 15:37] LABS: ALBUMIN 3.6 g/dL (3.4-5.0); ALBUMIN/GLOBULIN RATIO 1.1 (1.0-1.7); CALCIUM 9.2 mg/dL (8.5-10.1); CREATININE 1.3 mg/dL (0.6-1.0); GFR 41.5; POTASSIUM 4.5 mmol/L (3.5-5.1); TOTAL BILIRUBIN 0.4 mg/dL (0.2-1.0)
[2019-02-08 15:40] LABS: BILIRUBIN,URINE NEG (NEG); CLARITY,URINE CLEAR; COLOR,URINE YELLOW; GLUCOSE,URINE NEG (NEG)
[2019-02-08 15:41] LABS: BACTERIA,URINE FEW /HPF (0-FEW); HYALINE CASTS, URINE FEW /HPF; NITRITE,URINE NEG (NEG); SQUAMOUS EPITHELIAL CELL,UR FEW /LPF; UROBILINOGEN,URINE 1 mg/dL (0.2 mg/dL)
[2019-02-08 16:36] VITALS: BP 127/67
== END 2019-02-08 16:30 | disposition home or self-care (01) ==
LOC: ER 13:49
DX: S80.861A Insect bite (nonvenomous), right lower leg, initial encounter (principal); S00.561A Insect bite (nonvenomous) of lip, initial encounter; R42 Dizziness and giddiness; J98.11 Atelectasis; E78.00 Pure hypercholesterolemia, unspecified; E03.9 Hypothyroidism, unspecified; F17.210 Nicotine dependence, cigarettes, uncomplicated; Z86.73 Personal history of transient ischemic attack (TIA), and cerebral infarction without residual deficits; Z86.711 Personal history of pulmonary embolism; Z88.8 Allergy status to other drugs, medicaments and biological substances; Z91.040 Latex allergy status; W57.XXXA Bitten or stung by nonvenomous insect and other nonvenomous arthropods, initial encounter; Y93.89 Activity, other specified; Y92.89 Other specified places as the place of occurrence of the external cause; Y99.8 Other external cause status
CPT/HCPCS: 36415; 71045; 80053; 81001; 84484; 85025; 99285

== ENCOUNTER 2019-02-27 13:39 | Emergency (ER) | payer OTHER ==
[~2019-02-27] VITALS: Ht 162.6 cm; Wt 99.0 kg
--- NOTE | 2019-02-27 14:17 | PHYS DOC ---
Past History Past Medical History: CAD, COPD, DVT, High Cholesterol, Hypertension, Hypothyroid, Stroke, Other Additional Past Medical Histor: pulmonary embolism Past Surgical History: Appendectomy, Cholecystectomy, Other Smoking: Cigarettes, Less than 1pk/day Alcohol Use: None Drug Use: None Adult General Chief Complaint Chief Complaint: LOWER EXT PAIN [facility] HPI 63-year-old female presents with left lower extremity pain. The patient has pain in the posterior aspect of her knee. This pain started yesterday. The patient was recently diagnosed with a pulmonary embolus, a few weeks ago. She was on liquids, but was taken off of it. She did not have ultrasounds of her legs at that time. Today she has also had some mild shortness of breath and is concerned that she has a DVT. She denies any trauma. No recent long travel. They're unsure why she developed PE. History of A. fib. Review of Systems Review of Systems Constitutional: Denies fever or chills [] Eyes: Denies change in visual acuity, redness, or eye pain [] HENT: Denies nasal congestion or sore throat [] Respiratory: Denies cough or shortness of breath [] Cardiovascular: No additional information not addressed in HPI [] GI: Denies abdominal pain, nausea, vomiting, bloody stools or diarrhea [] : Denies dysuria or hematuria [] Musculoskeletal: Left posterior knee pain[] Integument: Denies rash or skin lesions [] Neurologic: Denies headache, focal weakness or sensory changes [] Endocrine: Denies polyuria or polydipsia [] All other systems were reviewed and found to be within normal limits, except as documented in this note. Allergies Allergies Allergies Coded Allergies Type Severity Reaction Last Updated Verified adhesive Allergy Severe Hives 04/29/18 Yes latex Allergy Severe 04/29/18 Yes Physical Exam Physical Exam Constitutional: Well developed, well nourished, no acute distress, non-toxic appearance. [] HENT: Normocephalic, atraumatic, bilateral external ears normal, oropharynx moist, no oral exudates, nose normal. [] Eyes: PERRLA, EOMI, conjunctiva normal, no discharge. [] Neck: Normal range of motion, no tenderness, supple, no stridor. [] Cardiovascular:Heart rate regular rhythm, no murmur [] Lungs & Thorax: Bilateral breath sounds clear to auscultation [] Abdomen: Bowel sounds normal, soft, no tenderness, no masses, no pulsatile karan s. [] Skin: Warm, dry, no erythema, no rash. [] Back: No tenderness, no CVA tenderness. [] Extremities: Tenderness of LLE posterior knee. [] Neurologic: Alert and oriented X 3, normal motor function, normal sensory function, no focal deficits noted. [] Psychologic: Affect normal, judgement normal, mood normal. [] Current Patient Data Vital Signs Vital Signs Date Time Temp Pulse Resp B/P (MAP) Pulse Ox O2 Delivery O2 Flow Rate FiO2 02/27/19 13:45 98.9 85 21 96 Room Air EKG EKG Sinus rhythm, rate 79, normal axis, no ST elevations or depressions.[] Radiology/Procedures Radiology/Procedures [] Impressions: Left lower extremity venous doppler ultrasound Indication: History of PEs. Technique: Color Doppler, grayscale, and spectral waveform analysis is used to evaluate the left femoral and popliteal veins. Findings: No evidence of deep venous thrombosis. Normal response to augmentation, normal compressibility and normal phasicity is demonstrated. Visualized calf veins are patent. Suboptimal visualization of the peroneal vein due to swelling. Impression: Negative for deep venous thrombosis Electronically signed by: Justyn Herbert MD (02/27/2019 2:58 PM) [facility] DICTATED AND SIGNED BY: JUSTYN HERBERT MD DATE: 02/27/19 1458 CC: AUGUSTIN DORSEY DO; CHASE BATISTA ~ Course & Med Decision Making Course & Med Decision Making Pertinent Labs and Imaging studies reviewed. (See chart for details) Patient's EKG is unremarkable. Her ultrasound of the lower extremities negative for DVT. Her chest x-ray is likely negative for acute findings. See official read for more details. Her labs are unremarkable. Troponin is negative. The patient has dipped below 90 with her oxygen saturation. We have placed on a little noticeable oxygen. The patient tells me that she has been going down to 88 at home on a regular basis even at rest. She does not currently have oxygen prescribed for home. I discussed this with the patient and told her that I believe she should be evaluated by her primary physician and get home oxygen. The patient states that she will follow up with her doctor as soon as possible and work on this. The patient would like to go home. I do not see any absolute contraindication to her going home. I have no other reason to admit her other than her low level which is likely chronic. She is stable for discharge at this time. [] Dragon Disclaimer Dragon Disclaimer This electronic medical record was generated, in whole or in part, using a voice recognition dictation system. Departure Departure: Impression: Primary Impression: Posterior left knee pain Additional Impression: Shortness of breath Disposition: HOME, SELF-CARE Condition: STABLE Referrals: CHASE BATISTA (PCP) Patient Instructions: Knee Pain, [id number], Shortness of Breath, Znah-[id number] Problem Qualifiers AUGUSTIN DORSEY DO Feb 27, 2019 14:17
--- NOTE | 2019-02-27 14:17 | EKG ---
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
[2019-02-27 14:21] LABS: BASO % 0 % (0-3); EOS # 0.1 x10^3/uL (0.0-0.7); EOS % 2 % (0-3); HEMATOCRIT 36.7 % (36.0-47.0); LYMPH # 1.8 x10^3/uL (1.0-4.8); LYMPH % 27 % (24-48); MEAN CORPUSCULAR HEMOGLOBIN 28 pg (25-35); MEAN CORPUSCULAR HGB CONC 33 g/dL (31-37); MEAN CORPUSCULAR VOLUME 86 fL (79-100); MONO # 0.4 x10^3/uL (0.0-1.1); MONO % 6 % (0-9); NEUT # 4.4 x10^3uL (1.8-7.7); NEUT % 65 % (31-73); PLATELET COUNT 240 x10^3/uL (140-400); RED BLOOD COUNT 4.27 x10^6/uL (3.50-5.40); RED CELL DISTRIBUTION WIDTH 14.2 % (11.5-14.5); WHITE BLOOD COUNT 6.7 x10^3/uL (4.0-11.0)
--- NOTE | 2019-02-27 14:36 | RAD ---
CHEST AP ONLY Clinical Indication: Shortness of breath Comparison: AP chest February 08, 2019. Findings: The cardiomediastinal silhouette is normal. There is upper lung emphysema. Mild bibasilar atelectasis or scarring. There is no pneumothorax. No pleural effusion is appreciated. No acute bone abnormality. IMPRESSION: Mild bibasilar atelectasis or scarring. Electronically signed by: Livan Valentine MD (02/27/2019 2:33 PM) [id number]
[2019-02-27 14:39] LABS: ALBUMIN 3.6 g/dL (3.4-5.0); ALBUMIN/GLOBULIN RATIO 1.1 (1.0-1.7); CREATININE 1.3 mg/dL (0.6-1.0); GFR 41.5; POTASSIUM 4.1 mmol/L (3.5-5.1); TOTAL BILIRUBIN 0.4 mg/dL (0.2-1.0); TOTAL PROTEIN 6.9 g/dL (6.4-8.2)
[2019-02-27 15:00] VITALS: BP 156/70
--- NOTE | 2019-02-27 15:01 | RAD ---
Left lower extremity venous doppler ultrasound Indication: History of PEs. Technique: Color Doppler, grayscale, and spectral waveform analysis is used to evaluate the left femoral and popliteal veins. Findings: No evidence of deep venous thrombosis. Normal response to augmentation, normal compressibility and normal phasicity is demonstrated. Visualized calf veins are patent. Suboptimal visualization of the peroneal vein due to swelling. Impression: Negative for deep venous thrombosis Electronically signed by: Justyn Herbert MD (02/27/2019 2:58 PM) [facility]
== END 2019-02-27 15:50 | disposition home or self-care (01) ==
LOC: ER 13:39
DX: M25.562 Pain in left knee (principal); R06.02 Shortness of breath; I25.10 Atherosclerotic heart disease of native coronary artery without angina pectoris; J44.9 Chronic obstructive pulmonary disease, unspecified; E78.00 Pure hypercholesterolemia, unspecified; I10 Essential (primary) hypertension; E03.9 Hypothyroidism, unspecified; F17.210 Nicotine dependence, cigarettes, uncomplicated; Z86.73 Personal history of transient ischemic attack (TIA), and cerebral infarction without residual deficits; Z86.711 Personal history of pulmonary embolism; Z86.718 Personal history of other venous thrombosis and embolism; Z88.8 Allergy status to other drugs, medicaments and biological substances; Z91.040 Latex allergy status
CPT/HCPCS: 36415; 71045; 80053; 84484; 85025; 93005; 93971; 99285

== ENCOUNTER 2019-03-23 08:45 | Inpatient (IN) | payer OTHER ==
[~2019-03-23] VITALS: Ht 157.5 cm; Wt 98.1 kg
[~2019-03-23 08:45] MED LIST changes: +OXYB5TAB10 PO; -OXYB5TAB7 PO
--- NOTE | 2019-03-23 09:11 | RAD ---
CHEST PA LATERAL Clinical indications: Shortness of breath. COMPARISON: February 27, 2019. Findings: Chronic scarring is seen within the lung bases. No new lung infiltrate or pleural effusion or pulmonary edema or lung mass or pneumothorax is seen. The heart size, pulmonary vasculature, mediastinum and both megan are unremarkable. The osseous structures appear intact. Impression: No new radiographic abnormality is seen. Electronically signed by: Charanjit Brock MD (03/23/2019 9:08 AM) [id number]
[2019-03-23 09:28] LABS: BASO # 0.1 x10^3/uL (0.0-0.2); BASO % 2 % (0-3); EOS # 0.1 x10^3/uL (0.0-0.7); EOS % 1 % (0-3); HEMATOCRIT 43.5 % (36.0-47.0); HEMOGLOBIN 14.1 g/dL (12.0-15.5); LYMPH # 2.6 x10^3/uL (1.0-4.8); LYMPH % 27 % (24-48); MEAN CORPUSCULAR HEMOGLOBIN 28 pg (25-35); MEAN CORPUSCULAR HGB CONC 32 g/dL (31-37); MEAN CORPUSCULAR VOLUME 85 fL (79-100); MONO # 0.5 x10^3/uL (0.0-1.1); MONO % 6 % (0-9); NEUT # 6.4 x10^3uL (1.8-7.7); NEUT % 65 % (31-73); PLATELET COUNT 366 x10^3/uL (140-400); RED BLOOD COUNT 5.09 x10^6/uL (3.50-5.40); RED CELL DISTRIBUTION WIDTH 13.9 % (11.5-14.5); WHITE BLOOD COUNT 9.8 x10^3/uL (4.0-11.0)
--- NOTE | 2019-03-23 09:31 | PHYS DOC ---
Past History Past Medical History: COPD, Diabetes, Hypertension Additional Past Medical Histor: pulmonary embolism Past Surgical History: Appendectomy, Cholecystectomy, , Hysterectomy Smoking: Cigarettes, Less than 1pk/day Alcohol Use: None Drug Use: Marijuana Adult General Chief Complaint Chief Complaint: SHORTNESS OF BREATH [facility] HPI 63-year-old female presents with increased SOB. She was diagnosed with pneumonia about one week ago. She has been on oral antibiotics, but does not feel like she is getting a better. She is on 3 L of oxygen all the time at home. She is on 4 L with movement. The patient feels like she is more weak than usual and is more short of breath with movement. [Her oxygen as she is supposed to. She had a fever initially, but does not currently. Review of Systems Review of Systems Constitutional: Denies fever or chills [] Eyes: Denies change in visual acuity, redness, or eye pain [] HENT: Denies nasal congestion or sore throat [] Respiratory: shortness of breath [] Cardiovascular: No additional information not addressed in HPI [] GI: Denies abdominal pain, nausea, vomiting, bloody stools or diarrhea [] : Denies dysuria or hematuria [] Musculoskeletal: Denies back pain or joint pain [] Integument: Denies rash or skin lesions [] Neurologic: Denies headache, focal weakness or sensory changes [] Endocrine: Denies polyuria or polydipsia [] All other systems were reviewed and found to be within normal limits, except as documented in this note. Allergies Allergies Allergies Coded Allergies Type Severity Reaction Last Updated Verified adhesive Allergy Severe Hives 04/29/18 Yes latex Allergy Severe 04/29/18 Yes Physical Exam Physical Exam Constitutional: Well developed, well nourished, no acute distress, non-toxic appearance. [] HENT: Normocephalic, atraumatic, bilateral external ears normal, oropharynx moist, no oral exudates, nose normal. [] Eyes: PERRLA, EOMI, conjunctiva normal, no discharge. [] Neck: Normal range of motion, no tenderness, supple, no stridor. [] Cardiovascular:Heart rate regular rhythm, no murmur [] Lungs & Thorax: Bilateral breath sounds severely diminished. On 2L by nasal cannula.[] Abdomen: Bowel sounds normal, soft, no tenderness, no masses, no pulsatile masses. [] Skin: Warm, dry, no erythema, no rash. [] Back: No tenderness, no CVA tenderness. [] Extremities: No tenderness, no cyanosis, no clubbing, ROM intact, no edema. [] Neurologic: Alert and oriented X 3, normal motor function, normal sensory function, no focal deficits noted. [] Psychologic: Affect normal, judgement normal, mood normal. [] Current Patient Data Vital Signs Vital Signs Date Time Temp Pulse Resp B/P (MAP) Pulse Ox O2 Delivery O2 Flow Rate FiO2 03/23/19 08:58 97.5 69 18 97 Nasal Cannula 2.0 EKG EKG Sinus rhythm, rate 66, normal axis, no ST elevations or depressions.[] Radiology/Procedures Radiology/Procedures [] Impressions: CHEST PA LATERAL Clinical indications: Shortness of breath. COMPARISON: February 27, 2019. Findings: Chronic scarring is seen within the lung bases. No new lung infiltrate or pleural effusion or pulmonary edema or lung mass or pneumothorax is seen. The heart size, pulmonary vasculature, mediastinum and both megan are unremarkable. The osseous structures appear intact. Impression: No new radiographic abnormality is seen. Electronically signed by: Jaret Brock MD (03/23/2019 9:08 AM) [id number] DICTATED AND SIGNED BY: JARET BROCK MD DATE: 03/23/19 09 CC: AUGUSTIN DORSEY DO; CHASE BATISTA ~ Course & Med Decision Making Course & Med Decision Making Pertinent Labs and Imaging studies reviewed. (See chart for details) The patient's chest x-ray does not show an acute pneumonia. There are chronic findings. See official report for more details. The patient's labs are unremarkable. She has no white count. I believe the patient is having further exacerbation of her COPD. I will treat her with 125 of Solu-Medrol and admitted her to the hospital for COPD exacerbation. I discussed the patient with Dr. Garcia and he has accepted her for admission. [] Dragon Disclaimer Dragon Disclaimer This electronic medical record was generated, in whole or in part, using a voice recognition dictation system. Departure Departure: Impression: Primary Impression: COPD exacerbation Disposition: ADMITTED INPATIENT Admitting Physician: Skyler Garcia Condition: STABLE Referrals: CHASE BATISTA (PCP) AUGUSTIN DORSEY DO Mar 23, 2019 09:31
[2019-03-23 09:42] LABS: ALBUMIN 3.5 g/dL (3.4-5.0); ALBUMIN/GLOBULIN RATIO 0.8 (1.0-1.7); CALCIUM 9.8 mg/dL (8.5-10.1); GFR 56.2; POTASSIUM 4.2 mmol/L (3.5-5.1); TOTAL BILIRUBIN 0.1 mg/dL (0.2-1.0); TOTAL PROTEIN 7.8 g/dL (6.4-8.2)
[2019-03-23] MEDS ORDERED: methylPREDNISolone SOD SUCC PF 125 MG/2 ML VIAL. IV ONE (10:15)
[2019-03-23] MEDS ORDERED: LISI10TA2 PO (10:40)
[2019-03-23] MEDS ORDERED: ONDANSETRON PF 4 MG/2 ML VIAL. IV PRN (10:45)
[2019-03-23 12:30] VITALS: BP 147/81
[2019-03-23] MEDS ORDERED: SUMAtriptan SUCCINATE 50 MG TABLET PO PRN (14:15)
[2019-03-23] MEDS: ALBUTEROL SULFATE 2.5 MG/3 ML NEBU. NEB SCH ×2 (15:11→20:00)
--- NOTE | 2019-03-23 15:57 | HP ---
ADMIT DATE: 03/23/2019 HISTORY OF PRESENT ILLNESS: The patient is a 63-year-old female patient who apparently came to the Emergency Room complaining of shortness of breath, cough with yellowish to greenish sputum. She apparently was diagnosed with pneumonia about 1 week ago, was treated with oral antibiotic, although she does not know the name of the antibiotic nor does she feel that she is getting better. She is on 3 liters of oxygen at all times and sometimes that increases to 4 liters in movement. She feels that she is more weak than usual, is more short of breath with movement. She does have also chills. She did have also fever initially, but does not have any fever currently. She was evaluated in the Emergency Room and her white cell count was normal. Her chemistry was unremarkable. A chest x-ray also showed no radiographic abnormality seen. The heart size, pulmonary vasculature, mediastinum and both megan are unremarkable. The osseous structures appear intact. The patient was admitted; however, she has markedly reduced chest expansion, reduced air entry and was admitted with a diagnosis of COPD exacerbation. She also complained of diarrhea and has had a history of C. difficile colitis about a year ago. PAST MEDICAL HISTORY: Significant for chronic obstructive pulmonary disease, hypertension, type 2 diabetes mellitus, hyperlipidemia. She is also known to have cerebrovascular accident, history of chronic kidney disease, urinary retention, left hip abscess from which she grew MRSA and required incision and drainage. PAST SURGICAL HISTORY: Significant for back surgery, appendectomy, tonsillectomy, cholecystectomy, total abdominal hysterectomy and bilateral salpingo-oophorectomy. She has left wrist fracture, status post open reduction and internal fixation. ALLERGIES: She is allergic to ADHESIVES AND LATEX. FAMILY HISTORY: Remarkable for coronary artery disease. SOCIAL HISTORY: She is an ex-smoker, however, she does use marijuana occasionally, but no alcohol. MEDICATIONS: She is currently on following medications: She is on ferrous sulfate 325 mg daily, apixaban 5 mg twice a day, simvastatin 20 mg at bedtime, clonidine 0.4 mg at bedtime, amlodipine 5 mg once a day, lisinopril 10 mg once a day, morphine sulfate 60 mg every 8 hours, gabapentin 900 mg twice a day, fluoxetine 40 mg daily, mirtazapine 30 mg p.o. at bedtime, sumatriptan succinate 50 mg p.o. p.r.n. for migraine headache. She is on furosemide 40 mg once a day. She is on Symbicort 160/4.5 one inhalation 2 puffs twice a day. She is on ketotifen fumarate for Zaditor 1 drop to both eyes twice a day, Flonase 2 sprays to each nostril once a day, Protonix 40 mg twice a day. She is on conjugated estrogen 0.5 mg once a month. She is on levothyroxine 75 mcg once a day, oxybutynin chloride 5 mg once a day, folic acid 1 mg once a day, cholecalciferol for vitamin D3 5000 international units twice a day. REVIEW OF SYSTEMS: As per history of present illness. PHYSICAL EXAMINATION: GENERAL: On arrival to the Emergency Room, the patient looked somewhat pale, but no jaundice, cyanosis or thyromegaly. No jugular venous distention. No limb edema. VITAL SIGNS: Her heart rate was 69, blood pressure was 147/81, temperature was 97.5, respiratory rate was 18 and oxygen saturation was 97% on 2 liters of oxygen by nasal cannula. HEAD, EYES, EARS, NOSE AND THROAT: Showed normocephalic, atraumatic. NECK: Supple. HEART: Showed normal first and second heart sounds. No gallop or murmur. CHEST: Shows central trachea, equally reduced expansion, reduced air entry, vesicular sounds. I could not really appreciate any crepitation or rhonchi. ABDOMEN: Distended, soft, nontender. NEUROLOGIC: She is awake, alert, responding appropriately. All cranial nerves intact. EXTREMITIES: She moves extremities without difficulty. She ambulates without assistance or assistive devices. LABORATORY DATA: Showed a white cell count 9800, hemoglobin 14, hematocrit 44, MCV 85 and platelet count 366,000. Her serum sodium was 140, potassium 4.2, chloride 101, bicarbonate 26, anion gap of 13, BUN 12, creatinine 1, estimated GFR was 56 mL per minute, glucose 113, calcium was 9.8. Total bilirubin, AST, ALT, alkaline phosphatase were normal. Total protein was 7.8, albumin was 3.5. Her chest x-ray showed that she has chronic scarring seen within both lung bases. No new lung infiltrate or pleural effusion, pulmonary edema or lung mass or pneumothorax seen. The heart size, pulmonary vasculature, mediastinum and both megan are unremarkable. The osseous structures appear intact. ASSESSMENT: The patient was admitted with chronic obstructive pulmonary disease exacerbation. We will add Solu-Medrol as well as Mucinex. We will send sputum for culture and sensitivity. She has resolution and she has recurrent bouts of loose bowel movement, we will send stool for C. diff and I will hold off on antibiotic treatment as she is afebrile. A chest x-ray was unremarkable and her white cell count is normal. Obviously if she spiked a temperature, if there is any change that require antibiotic therapy, we will institute that. I will send sputum for culture and sensitivity. BRUCE BENZ MD DR: JACQUELIN/junie JOB#: [id number] / [id number]
[2019-03-23] MEDS: PANTOPRAZOLE 40 MG TABLET. PO SCH (16:30)
[2019-03-23 19:44] VITALS: BP 168/75
[2019-03-23] MEDS: IPRATRPIUM/ALBUTEROL 0.5/2.5MG 3 ML NEBU. NEB SCH ×2 (20:00→20:33)
[2019-03-23] MEDS: BUDESONIDE 0.5 MG/2 ML NEBU NEB SCH (20:33)
[2019-03-23] MEDS: GABAPENTIN 300 MG CAPSULE. PO SCH (20:54)
[2019-03-23] MEDS: APIXABAN 5 MG TABLET. PO SCH (20:55)
[2019-03-23] MEDS: MORPHINE ER 30 MG TABLET.ER PO SCH (20:58)
[2019-03-23] MEDS: KETOTIFEN FUMARATE 0.025% OPHT SOLUTION BOTTLE. OU SCH (21:00)
[2019-03-23] MEDS ORDERED: SIMVASTATIN 20 MG TABLET PO SCH (21:00)
[2019-03-23] MEDS ORDERED: MIRTAZAPINE 30 MG TABLET PO SCH (21:00)
[2019-03-23] MEDS ORDERED: cloNIDine HCL 0.1 MG TABLET PO SCH (21:00)
[2019-03-23] MEDS ORDERED: NON FORMULARY ITEM (Budesonide/Formoterol Fumarate (Symbicort 160-4.5 Mcg Inhaler) 2 PUFF) IH SCH (21:00)
[2019-03-23] MEDS: CHOLECALCIFEROL (VITAMIN D3) 1,000 UNIT TABLET PO SCH (21:09)
[2019-03-23 22:13] VITALS: BP 161/73
[2019-03-23] MEDS: methylPREDNISolone SOD SUCC PF 40 MG/ML VIAL. IV SCH (22:15)
[2019-03-23 22:25] VITALS: BP 164/58
[2019-03-23] MEDS ORDERED: ACETAMINOPHEN 325 MG TABLET PO ONE (23:10)
[2019-03-23] MEDS ORDERED: ACETAMINOPHEN 325 MG TABLET PO PRN (23:15)
[2019-03-24] MEDS: IPRATRPIUM/ALBUTEROL 0.5/2.5MG 3 ML NEBU. NEB SCH (05:07)
[2019-03-24 05:25] VITALS: BP 148/56
[2019-03-24] MEDS: methylPREDNISolone SOD SUCC PF 40 MG/ML VIAL. IV SCH (06:00)
[2019-03-24] MEDS ORDERED: LEVOTHYROXINE 75 MCG TABLET PO SCH (07:00)
[2019-03-24] MEDS: APIXABAN 5 MG TABLET. PO SCH (07:27)
[2019-03-24] MEDS: CHOLECALCIFEROL (VITAMIN D3) 1,000 UNIT TABLET PO SCH (07:27)
[2019-03-24] MEDS: GABAPENTIN 300 MG CAPSULE. PO SCH (07:28)
[2019-03-24] MEDS: KETOTIFEN FUMARATE 0.025% OPHT SOLUTION BOTTLE. OU SCH (07:29)
[2019-03-24] MEDS: PANTOPRAZOLE 40 MG TABLET. PO SCH (07:29)
[2019-03-24] MEDS: MORPHINE ER 30 MG TABLET.ER PO SCH (07:29)
[2019-03-24 07:34] VITALS: BP 148/56
[2019-03-24] MEDS: ALBUTEROL SULFATE 2.5 MG/3 ML NEBU. NEB SCH (08:00)
[2019-03-24] MEDS: BUDESONIDE 0.5 MG/2 ML NEBU NEB SCH (08:00)
[2019-03-24] MEDS ORDERED: FERROUS SULFATE 325 MG TABLET. PO SCH (09:00)
[2019-03-24] MEDS ORDERED: OXYBUTYNIN CHLORIDE 5 MG TABLET PO SCH (09:00)
[2019-03-24] MEDS ORDERED: FUROSEMIDE 40 MG TABLET PO SCH (09:00)
[2019-03-24] MEDS ORDERED: amLODIPine BESYLATE 5 MG TABLET PO SCH (09:00)
[2019-03-24] MEDS ORDERED: LISINOPRIL 10 MG TABLET PO SCH (09:00)
[2019-03-24] MEDS ORDERED: FLUoxetine HCL 20 MG CAPSULE PO SCH (09:00)
[2019-03-24] MEDS ORDERED: FOLIC ACID 1 MG TABLET PO SCH (09:00)
[2019-03-24] MEDS ORDERED: FLUTICASONE 50MCG/NASAL SPRAY 16GM BOTTLE. NS SCH (09:00)
[2019-03-24] MEDS ORDERED: PRED20TA PO (11:01)
--- NOTE | 2019-03-24 22:07 | DS ---
DATE OF DISCHARGE: 03/24/2019 HOSPITAL COURSE: The patient is a 63-year-old female patient who came yesterday with a complaint of increasing shortness of breath. She apparently was treated with antibiotic as an outpatient for community-acquired pneumonia; however, she continued to have marked shortness of breath and hypoxia. We did admit her yesterday, started her on nebulized treatment as well as Solu-Medrol. She received 125 mg in the Emergency Room and then, 40 mg every 8 hours and she did actually very well and did have a loose bowel movement. We sent stool for C. diff; however, the patient wanted to go home, feeling much better, has had no further episodes of diarrhea since yesterday. PHYSICAL EXAMINATION: GENERAL: When I examined her, she looked well and was clearly in no apparent respiratory distress. No pallor, jaundice, cyanosis, or thyromegaly. No jugular venous distension. No lower limb edema. VITAL SIGNS: Her heart rate was 78, blood pressure was 148/56, temperature was 97.3, respiratory rate 20, and oxygen saturation was 98% on 2 liters of oxygen. HEAD, EYES, EARS, NOSE, AND THROAT: Showed normocephalic, atraumatic. NECK: Supple. HEART: Showed normal first and second heart sounds. No gallop or murmur. CHEST: Shows central trachea, equally reduced expansion, reduced air entry, vesicular sounds. I could not really appreciate any crepitation or rhonchi. ABDOMEN: Slightly distended, soft, nontender. NEUROLOGIC: She is awake, alert, responding appropriately. All cranial nerves intact. She moves extremities without difficulty. She ambulates without assistance or assistive devices. Her intake and output are incompletely recorded. LABORATORY DATA: Her lab work showed serum sodium 140, potassium 4.2, chloride 101, bicarbonate 26, anion gap of 13, BUN 12, creatinine 1, estimated GFR was 56 mL per minute, her glucose ____, calcium was 9.8. Total bilirubin, AST, ALT, alkaline phosphatase are normal. Total protein was 7.8, albumin was 3.5. White cell count was 9800, hemoglobin 14, hematocrit 44, MCV 85, and platelet count 366,000. DISCHARGE MEDICATIONS: She was discharged home to continue on all her medications with a tapering course of steroids in the form of 40 mg once a day for 3 days, 30 mg once a day for 3 days, 20 mg once a day for 3 days, and 10 mg once a day for 3 days. She was also discharged on Flonase 2 sprays to each nostril once a day. Should continue on all other medication including amlodipine besylate 5 mg once a day, apixaban 5 mg twice a day, Symbicort 2 puffs twice a day, cholecalciferol 5000 international units twice a day, clonidine 0.1 mg at bedtime, ferrous sulfate 325 mg once a day, fluoxetine 40 mg daily, Flonase one spray to each nostril once a day, folic acid 1 mg daily, furosemide 80 mg once a day, gabapentin 900 mg twice a day, ketotifen fumarate for Zaditor 1 drop to both eyes twice a day, levothyroxine sodium 75 mcg once a day, lisinopril 10 mg once a day, mirtazapine or Remeron 30 mg at bedtime, morphine sulfate 60 mg twice a day, she is on oxybutynin 5 mg daily, Protonix 40 mg twice a day, simvastatin 20 mg at bedtime, and sumatriptan 50 mg as needed for migraine headache. FINAL DISCHARGE DIAGNOSES: 1. Acute chronic obstructive pulmonary disease exacerbation. 2. Hypertension. 3. Type 2 diabetes mellitus. 4. Hyperlipidemia. 5. Cerebrovascular accident. 6. Chronic kidney disease. 7. She has a history of Clostridium difficile colitis. She did have diarrhea. We will send stool for Clostridium difficile; however, she has not had any diarrhea last night and this morning and we will call her if the stool came back positive. BRUCE BENZ MD DR: JACQUELIN/junie JOB#: [id number] / [id number]
--- NOTE | 2019-03-26 07:00 | EKG ---
[address] [address] Test Date: 2019-03-23 Test Time: 08:50:24 Pat Name: ALEJANDRO CARRILLO Department: Room: 115 A Gender: F Php Website Developer: ARIANNE : 1955 Requested By: BRUCE BENZ Order Number: [id number] Reading MD: Measurements Intervals [place] Rate: 66 P: [place]: QRS: 51 QRSD: 76 T: 26 QT: 394 QTc: 415 Interpretive Statements IRREGULAR RHYTHM, NO P-WAVE FOUND QRS(T) CONTOUR ABNORMALITY CONSIDER ANTEROSEPTAL MYOCARDIAL DAMAGE POSSIBLY ABNORMAL ECG RI6.01 No previous ECG available for comparison
[2019-03-26] MEDS ORDERED: ESTROGENS, CONJUGATED 0.625 MG TABLET PO SCH (16:00)
== END 2019-03-24 11:32 | disposition home or self-care (01) | DRG 192 ==
LOC: ER 08:45 → 1 SOUTH 11:02
PROVIDERS: ADMIT Internal Medicine; ATTEND Internal Medicine
DX: J44.1 Chronic obstructive pulmonary disease with (acute) exacerbation (principal); E11.22 Type 2 diabetes mellitus with diabetic chronic kidney disease; E78.5 Hyperlipidemia, unspecified; F12.90 Cannabis use, unspecified, uncomplicated; I12.9 Hypertensive chronic kidney disease with stage 1 through stage 4 chronic kidney disease, or unspecified chronic kidney disease; N18.9 Chronic kidney disease, unspecified; Z82.49 Family history of ischemic heart disease and other diseases of the circulatory system; Z86.19 Personal history of other infectious and parasitic diseases; Z86.711 Personal history of pulmonary embolism; Z86.73 Personal history of transient ischemic attack (TIA), and cerebral infarction without residual deficits; Z87.891 Personal history of nicotine dependence; Z90.49 Acquired absence of other specified parts of digestive tract; Z90.710 Acquired absence of both cervix and uterus; Z88.8 Allergy status to other drugs, medicaments and biological substances; Z91.040 Latex allergy status; Z68.39 Body mass index [BMI] 39.0-39.9, adult
CPT/HCPCS: 36415; 71046; 80053; 85025; 87040; 87045; 93005; 94640; 96374; J2920; J2930; J7613; J7620; J7626; 99285-25

== ENCOUNTER 2019-05-08 20:04 | Inpatient (IN) | payer OTHER ==
[~2019-05-08] VITALS: Ht 162.6 cm; Wt 101.3 kg
[~2019-05-08 20:04] MED LIST changes: +LISI10TA2 PO; +PRED20TA PO; +SIMV20TA18 PO; -SIMV20TA3 PO
[2019-05-08] MEDS ORDERED: methylPREDNISolone SOD SUCC PF 125 MG/2 ML VIAL. IV ONE (20:45)
[2019-05-08] MEDS ORDERED: IPRATRPIUM/ALBUTEROL 0.5/2.5MG 3 ML NEBU. NEB ONE (20:45)
--- NOTE | 2019-05-08 20:46 | PHYS DOC ---
Past History Past Medical History: COPD, Diabetes, Hypertension Additional Past Medical Histor: pulmonary embolism Past Surgical History: Appendectomy, Cholecystectomy, , Hysterectomy Smoking: Cigarettes, Less than 1pk/day Alcohol Use: None Drug Use: Marijuana Adult General Chief Complaint Chief Complaint: SHORTNESS OF BREATH [facility] HPI 63-year-old female presents with shortness of breath. The patient has been having increasing shortness of breath last couple of days. Today it is much worse. Her oxygen saturation is okay. She is able to check it at home. She just doesn't feel like she is getting a full breath. She is chronically on 4 L of oxygen. She has a history of COPD, DVT, PE, stroke. She is on a liquid is and has been taking it as prescribed. The patient had a fever of 100.7 today. She took 2 aspirin and it improved. She uses albuterol nebulizer about every 3 days. She tried her albuterol treatment today and it did not seem to help at all. She denies chest pain. Review of Systems Review of Systems Constitutional: Fever[] Eyes: Denies change in visual acuity, redness, or eye pain [] HENT: Denies nasal congestion or sore throat [] Respiratory: Cough with shortness of breath [] Cardiovascular: No additional information not addressed in HPI [] GI: Denies abdominal pain, nausea, vomiting, bloody stools or diarrhea [] : Denies dysuria or hematuria [] Musculoskeletal: Denies back pain or joint pain [] Integument: Denies rash or skin lesions [] Neurologic: Denies headache, focal weakness or sensory changes [] Endocrine: Denies polyuria or polydipsia [] All other systems were reviewed and found to be within normal limits, except as documented in this note. Current Medications Current Medications Current Medications Medications (Trade) Dose Ordered Sig/Diana Start Time Stop Time Status Last Admin Dose Admin Albuterol/ Ipratropium (Duoneb) 3 ml 1X ONCE 05/08/19 20:45 05/08/19 20:46 UNV Methylprednisolone Sodium Succinate (SOLU-Medrol 125MG VIAL) 125 mg 1X ONCE 05/08/19 20:45 05/08/19 20:46 UNV Allergies Allergies Allergies Coded Allergies Type Severity Reaction Last Updated Verified adhesive Allergy Severe Hives 04/29/18 Yes latex Allergy Severe 11/17/18 Yes Physical Exam Physical Exam Constitutional: Well developed, well nourished, no acute distress, non-toxic appearance. [] HENT: Normocephalic, atraumatic, bilateral external ears normal, oropharynx moist, no oral exudates, nose normal. [] Eyes: PERRLA, EOMI, conjunctiva normal, no discharge. [] Neck: Normal range of motion, no tenderness, supple, no stridor. [] Cardiovascular:Heart rate regular rhythm, no murmur [] Lungs & Thorax: Bilateral breath sounds remained diminished throughout. On 4 L nasal cannula[] Abdomen: Bowel sounds normal, soft, no tenderness, no masses, no pulsatile masses. [] Skin: Warm, dry, no erythema, no rash. [] Back: No tenderness, no CVA tenderness. [] Extremities: No tenderness, no cyanosis, no clubbing, ROM intact, no edema. [] Neurologic: Alert and oriented X 3, normal motor function, normal sensory funct ion, no focal deficits noted. [] Psychologic: Affect normal, judgement normal, mood normal. [] EKG EKG [] Radiology/Procedures Radiology/Procedures [] Course & Med Decision Making Course & Med Decision Making Pertinent Labs and Imaging studies reviewed. (See chart for details) The patient's labs are significant for slightly elevated white count. Her chest x-ray is significant for a left lower lobe pneumonia. I will treat her with azithromycin and Zosyn. We'll admit her to the hospital for further management. The patient's blood pressure is normal. Her heart rate is within normal limits. She does not have a fever in the ED. She does not meet sepsis criteria. I spoke with Dr. Garcia and he has accepted the patient for admission. [] Dragon Disclaimer Dragon Disclaimer This electronic medical record was generated, in whole or in part, using a voice recognition dictation system. Departure Departure: Impression: Primary Impression: Left lower lobe pneumonia Disposition: 09 ADMITTED INPATIENT Admitting Physician: Skyler Garcia Condition: STABLE Referrals: PCP,UNKNOWN (PCP) Problem Qualifiers Primary Impression: Left lower lobe pneumonia Pneumonia type: due to unspecified organism Qualified Codes: J18.9 - Pneumonia, unspecified organism AUGUSTIN DORSEY DO May 08, 2019 20:46
[2019-05-08 20:47] LABS: BASO # 0.1 x10^3/uL (0.0-0.2); BASO % 1 % (0-3); EOS % 1 % (0-3); HEMATOCRIT 38.1 % (36.0-47.0); HEMOGLOBIN 12.2 g/dL (12.0-15.5); LYMPH # 1.6 x10^3/uL (1.0-4.8); LYMPH % 24 % (24-48); MEAN CORPUSCULAR HEMOGLOBIN 27 pg (25-35); MEAN CORPUSCULAR HGB CONC 32 g/dL (31-37); MEAN CORPUSCULAR VOLUME 83 fL (79-100); MONO # 0.4 x10^3/uL (0.0-1.1); MONO % 6 % (0-9); NEUT # 4.7 x10^3uL (1.8-7.7); NEUT % 69 % (31-73); PLATELET COUNT 209 x10^3/uL (140-400); RED BLOOD COUNT 4.57 x10^6/uL (3.50-5.40); RED CELL DISTRIBUTION WIDTH 14.2 % (11.5-14.5); WHITE BLOOD COUNT 6.8 x10^3/uL (4.0-11.0)
[2019-05-08 21:04] LABS: ALBUMIN 3.3 g/dL (3.4-5.0); ALBUMIN/GLOBULIN RATIO 0.9 (1.0-1.7); CALCIUM 9.2 mg/dL (8.5-10.1); CREATININE 0.9 mg/dL (0.6-1.0); GFR 63.4; POTASSIUM 4.4 mmol/L (3.5-5.1); TOTAL BILIRUBIN 0.2 mg/dL (0.2-1.0)
[2019-05-08 21:53] LABS: BILIRUBIN,URINE NEG (NEG); CLARITY,URINE CLEAR; COLOR,URINE YELLOW; GLUCOSE,URINE NEG (NEG)
[2019-05-08 21:54] LABS: BACTERIA,URINE MANY /HPF (0-FEW); NITRITE,URINE NEG (NEG); RBC,URINE 0 /HPF (0-2); UROBILINOGEN,URINE 0.2 mg/dL (0.2 mg/dL)
[2019-05-08] MEDS ORDERED: PIPERACILLIN/TAZOBACTAM 3.375 GM VIAL IV ONE (21:57)
[2019-05-08] MEDS ORDERED: IV NORMAL SALINE 50ML 50 ML ONE (21:57)
[2019-05-08] MEDS ORDERED: PIPERACILLIN/TAZOBACTAM 3.375 GM in IV NORMAL SALINE 50ML 50 ML IV ONE (22:00)
[2019-05-08] MEDS ORDERED: AZITHROMYCIN 250 MG TABLET. PO ONE (22:00)
[2019-05-08] MEDS ORDERED: ONDANSETRON PF 4 MG/2 ML VIAL. IV PRN (22:45)
[2019-05-08] MEDS ORDERED: ALBUTEROL SULFATE 2.5 MG/3 ML NEBU. NEB PRN (22:45)
--- NOTE | 2019-05-08 23:30 | NUR ---
The patient, ALEJANDRO CARRILLO, 63 y/o, F admitted by BRUCE BENZ MD, was given written information regarding hospital policies, unit procedures and contact persons. Pt accompanied onto the unit by EMS personnel via gurney. Pt transferred to the bed independently. VSS. Pt currently on 3L of oxygen via [place], which pt is on normally at home and a CPAP at night. Pt reports having increasing SOB over the last four days, a temp and some dizziness. Oriented pt to room and reviewed plan of care. Valuables were checked and left in room with pt. Call light within reach.
[2019-05-08 23:37] VITALS: BP 146/75
--- NOTE | 2019-05-09 | NUR ---
Pt refused telemetry, stating that the adhesive would leave blisters on her skin.
[2019-05-09] MEDS ORDERED: TRAM50TA PO (00:16)
[2019-05-09] MEDS ORDERED: PANT20TA58 PO (00:16)
[2019-05-09] MEDS ORDERED: ALBU2.5V8 INH (00:16)
[2019-05-09] MEDS ORDERED: MORP60TA60 PO (00:16)
[2019-05-09] MEDS ORDERED: ASPI-612 PO (00:16)
--- NOTE | 2019-05-09 00:22 | RAD ---
AP portable chest radiograph 05/08/2019 Clinical History: Shortness of breath. An AP erect portable digital radiograph of the chest was obtained. Comparison study is dated 03/23/2019. The cardiac silhouette is normal in size. The thoracic aorta is minimally tortuous. Atherosclerotic calcification of the thoracic aorta is seen. No acute pulmonary infiltrate is noted. No pneumothorax or pleural effusion is seen. The osseous structures are unchanged. Impression: No acute abnormality is seen. Electronically signed by: Isai Kevin MD (05/09/2019 12:19 AM) [facility]
[2019-05-09] MEDS ORDERED: IPRATRPIUM/ALBUTEROL 0.5/2.5MG 3 ML NEBU. ONE (05:32)
[2019-05-09] MEDS: MORPHINE ER 30 MG TABLET.ER PO SCH ×2 (05:46→15:45)
[2019-05-09] MEDS: LEVOTHYROXINE 75 MCG TABLET PO SCH (05:46)
[2019-05-09 05:55] LABS: BASO % 0 % (0-3); EOS % 0 % (0-3); HEMATOCRIT 35.4 % (36.0-47.0); HEMOGLOBIN 11.3 g/dL (12.0-15.5); LYMPH # 0.5 x10^3/uL (1.0-4.8); LYMPH % 6 % (24-48); MEAN CORPUSCULAR HEMOGLOBIN 27 pg (25-35); MEAN CORPUSCULAR HGB CONC 32 g/dL (31-37); MEAN CORPUSCULAR VOLUME 84 fL (79-100); MONO # 0.2 x10^3/uL (0.0-1.1); MONO % 2 % (0-9); NEUT # 7.7 x10^3uL (1.8-7.7); NEUT % 92 % (31-73); PLATELET COUNT 193 x10^3/uL (140-400); WHITE BLOOD COUNT 8.4 x10^3/uL (4.0-11.0)
[2019-05-09] MEDS: IPRATRPIUM/ALBUTEROL 0.5/2.5MG 3 ML NEBU. NEB SCH ×4 (05:59→21:14)
[2019-05-09 06:03] VITALS: BP 159/69
[2019-05-09 06:03] LABS: CREATININE 1.4 mg/dL (0.6-1.0); GFR 38.1
[2019-05-09] MEDS: amLODIPine BESYLATE 5 MG TABLET PO SCH (08:02)
[2019-05-09] MEDS: cloNIDine HCL 0.1 MG TABLET PO SCH (08:02)
[2019-05-09] MEDS: FLUoxetine HCL 20 MG CAPSULE PO SCH (08:02)
[2019-05-09] MEDS: GABAPENTIN 300 MG CAPSULE. PO SCH ×2 (08:02→20:24)
[2019-05-09] MEDS: LISINOPRIL 10 MG TABLET PO SCH (08:03)
[2019-05-09] MEDS: APIXABAN 5 MG TABLET. PO SCH ×2 (08:03→20:23)
[2019-05-09] MEDS: FERROUS SULFATE 325 MG TABLET. PO SCH (08:03)
[2019-05-09] MEDS: PANTOPRAZOLE 40 MG TABLET. PO SCH (08:03)
[2019-05-09] MEDS: ASPIRIN ENTERIC COATED 81 MG TABLET.DR. PO SCH (08:03)
[2019-05-09] MEDS: FUROSEMIDE 40 MG TABLET PO SCH (08:03)
[2019-05-09] MEDS ORDERED: ACETAMINOPHEN 325 MG TABLET PO PRN (09:45)
[2019-05-09 10:48] VITALS: BP 127/67
[2019-05-09 14:59] VITALS: BP 126/70
--- NOTE | 2019-05-09 17:20 | HP ---
ADMIT DATE: HISTORY OF PRESENT ILLNESS: The patient is a 63-year-old female patient who came to the Emergency Room complaining of increasing shortness of breath that has been going on for the last few days. On the day of admission, she was much worse. She was complaining of generalized weakness and dizziness. She is chronically on 4 liters of oxygen. She has a history of COPD, DVT and PE. She is on Eliquis and has been taking it as prescribed. She did have fever up to 100.7. She took 2 aspirin and has improved. She is on albuterol nebulizer about every 3 days. She tried her albuterol treatment today without much improvement and therefore she decided to come to the Emergency Room for further evaluation where she was extensively investigated. She has had lab work and a chest x-ray. According to the ER physician, she has had a slightly elevated white cell count. Her chest x-ray is significant for left lower lobe pneumonia and was started her on Zithromax and Zosyn and was admitted to the hospital for further evaluation. Her blood pressure was normal and therefore she was admitted basically for community-acquired pneumonia. PAST MEDICAL HISTORY: Significant for chronic obstructive pulmonary disease, hypertension, type 2 diabetes mellitus and hyperlipidemia. She is also known to have cerebrovascular accident, history of chronic kidney disease, urinary retention, left hip abscess from which she grew MRSA and required incision and drainage. PAST SURGICAL HISTORY: Significant for back surgery, appendectomy, tonsillectomy, cholecystectomy, total abdominal hysterectomy, bilateral salpingo-oophorectomy. She has left wrist fracture, status post open reduction and internal fixation. ALLERGIES: She is ALLERGIC TO ADHESIVES AND LATEX. FAMILY HISTORY: Remarkable for coronary artery disease. SOCIAL HISTORY: She is an ex-smoker, however, she does quit drinking alcohol and smoking on 01/21/2019 after her had heart attack. She continued to smoke marijuana 3 times a month. 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 MEDICATIONS: She is currently on following medications: She is on albuterol sulfate for ProAir 1 inhalation every 6 hours, ferrous sulfate 325 mg once a day, apixaban 5 mg twice a day, clonidine 0.1 mg daily, amlodipine besylate 5 mg once a day, lisinopril 10 mg daily, aspirin 81 mg once a day, morphine sulfate 60 mg extended release twice a day, tramadol 50 mg every 8 hours, gabapentin 300 mg twice a day, fluoxetine 40 mg daily, furosemide 80 mg daily. She is also on Protonix 20 mg once a day and levothyroxine 75 mcg once a day. REVIEW OF SYSTEMS: The patient denied any blurring of vision, cataract, glaucoma or macular degeneration. Denied any earache, tinnitus or sensorineural deafness. Denied any nosebleeds, stuffy nose or postnasal drip. Denied any sore throat, sore tongue, toothache, hoarseness of voice or difficulty swallowing. Denied any nausea, vomiting, diarrhea or constipation. Denied any hematemesis, melena or hematochezia. Denied any dysuria, frequency or hematuria. Denied any chest pain. Did complain of shortness of breath. Did complain of dizziness, lightheadedness. She also had fever up to 100.7. PHYSICAL EXAMINATION: GENERAL: On arrival to the Emergency Room, she looked well and was clearly in no apparent respiratory distress. There was no pallor, jaundice, cyanosis or thyromegaly. No jugular venous distension. No limb edema. VITAL SIGNS: Her heart rate was 81, blood pressure was 130/49, temperature was 98.1, respiratory rate was 26 and oxygen saturation was 93% on 3 liters of oxygen by nasal cannula. HEAD, EYES, EARS, NOSE AND THROAT: Normocephalic, atraumatic. NECK: Supple. HEART: Showed normal first and second heart sounds. No gallop or murmur. CHEST: Clear to auscultation. No crepitation or rhonchi. ABDOMEN: Distended, soft, nontender. No guarding or rigidity. No organomegaly. All hernial orifice intact. Bowel sounds normal. NEUROLOGIC: She was awake, alert, responding appropriately. All cranial nerves intact. EXTREMITIES: She moves extremities without difficulty. LABORATORY DATA: Her lab work on admission showed that her white cell count was 6800, hemoglobin 12.2, hematocrit 38, MCV 93, and platelet count of 209,000. Her chemistry showed a serum sodium 140, potassium 4.4, chloride 102, bicarbonate 29, anion gap of 9, BUN 12, creatinine 0.9, estimated GFR was 63 mL per minute. Her glucose 119, calcium was 9.2. Total bilirubin, AST, ALT, alkaline phosphatase are normal. Beta natriuretic peptide was 259. Total protein was 7, albumin was 3.3. Her urinalysis was essentially unremarkable. The urine was yellow, clear with a pH of 6, specific gravity of 1.015. The urine was negative for protein, glucose, ketones. There was small trace of blood, negative for nitrite and leukocyte esterase. There are no rbc's, no wbc's and many bacteria. Her chest x-ray showed the cardiac silhouette is normal in size. Thoracic aorta is minimally tortuous. Atherosclerotic calcification of thoracic aorta is seen. No acute pulmonary infiltrate is noted. No pneumothorax or pleural effusion is seen. The osseous structures are unchanged. ASSESSMENT AND PLAN: The patient was admitted with community-acquired pneumonia. She was started on intravenous Rocephin and Zithromax. We will continue all her other medications. We will follow her closely on a daily basis and decide further management accordingly. BRUCE BENZ MD DR: JACQUELIN/junie JOB#: [id number] / [id number]
[2019-05-09 19:29] VITALS: BP 130/67
[2019-05-09] MEDS: traMADol 50 MG TABLET PO PRN (20:24)
[2019-05-09 23:01] VITALS: BP 109/49
[2019-05-10] MEDS: MORPHINE ER 30 MG TABLET.ER PO SCH (04:59)
[2019-05-10] MEDS: LEVOTHYROXINE 75 MCG TABLET PO SCH (04:59)
[2019-05-10 05:05] VITALS: BP 121/76
[2019-05-10] MEDS: IPRATRPIUM/ALBUTEROL 0.5/2.5MG 3 ML NEBU. NEB SCH ×3 (05:50→12:15)
[2019-05-10 07:00] LABS: BASO % 0 % (0-3); EOS # 0.1 x10^3/uL (0.0-0.7); EOS % 1 % (0-3); HEMATOCRIT 33.7 % (36.0-47.0); HEMOGLOBIN 10.8 g/dL (12.0-15.5); LYMPH # 2.5 x10^3/uL (1.0-4.8); LYMPH % 32 % (24-48); MEAN CORPUSCULAR HEMOGLOBIN 27 pg (25-35); MEAN CORPUSCULAR HGB CONC 32 g/dL (31-37); MEAN CORPUSCULAR VOLUME 84 fL (79-100); MONO # 0.5 x10^3/uL (0.0-1.1); MONO % 6 % (0-9); NEUT # 4.7 x10^3uL (1.8-7.7); NEUT % 60 % (31-73); PLATELET COUNT 184 x10^3/uL (140-400); RED CELL DISTRIBUTION WIDTH 14.1 % (11.5-14.5); WHITE BLOOD COUNT 7.8 x10^3/uL (4.0-11.0)
[2019-05-10 07:08] LABS: ALBUMIN 3.2 g/dL (3.4-5.0); ALBUMIN/GLOBULIN RATIO 0.9 (1.0-1.7); CALCIUM 8.5 mg/dL (8.5-10.1); GFR 56.2; POTASSIUM 3.5 mmol/L (3.5-5.1); TOTAL BILIRUBIN 0.1 mg/dL (0.2-1.0); TOTAL PROTEIN 6.6 g/dL (6.4-8.2)
[2019-05-10] MEDS: amLODIPine BESYLATE 5 MG TABLET PO SCH (08:22)
[2019-05-10] MEDS: cloNIDine HCL 0.1 MG TABLET PO SCH (08:22)
[2019-05-10] MEDS: GABAPENTIN 300 MG CAPSULE. PO SCH (08:22)
[2019-05-10] MEDS: FLUoxetine HCL 20 MG CAPSULE PO SCH (08:22)
[2019-05-10] MEDS: APIXABAN 5 MG TABLET. PO SCH (08:22)
[2019-05-10] MEDS: FERROUS SULFATE 325 MG TABLET. PO SCH (08:23)
[2019-05-10] MEDS: ASPIRIN ENTERIC COATED 81 MG TABLET.DR. PO SCH (08:23)
[2019-05-10] MEDS: PANTOPRAZOLE 40 MG TABLET. PO SCH (08:23)
[2019-05-10] MEDS: LISINOPRIL 10 MG TABLET PO SCH (08:23)
[2019-05-10] MEDS: FUROSEMIDE 40 MG TABLET PO SCH (08:23)
[2019-05-10 12:15] VITALS: BP 124/67
[2019-05-10] MEDS: traMADol 50 MG TABLET PO PRN (12:51)
[2019-05-10] MEDS ORDERED: CEFD300C PO (14:40)
[2019-05-10] MEDS ORDERED: AZIT250T PO (14:40)
--- NOTE | 2019-05-10 14:47 | NUR ---
Discharge Note: ALEJANDRO CARRILLO [address] Discharge instructions and discharge home medications reviewed with Patient and a copy given. All questions have been answered and understanding verbalized. The following instructions and handouts were given: z pack, cefdinir Discontinued lines and drains: iv d/c, tip in tact. Patient discharged to home, accompanied by .
--- NOTE | 2019-05-10 14:55 | DS ---
DATE OF DISCHARGE: HOSPITAL COURSE: The patient is a 63-year-old female patient who was admitted with generalized weakness, dizziness. She also had increasing shortness of breath that has been going on for a few days. She is known to have COPD. She is on Eliquis and has been taking it as prescribed. She did have fever up to 100.7. She did have cough with scanty sputum. Her chest x-ray showed that she has left lower lobe pneumonia, was started on Zithromax and Zosyn. I did actually change Zosyn to Rocephin and she did actually very well. When I saw her today, she looked well and was clearly in no apparent respiratory distress, feeling much improved, up and about. PHYSICAL EXAMINATION: GENERAL: When I saw her, she was somewhat pale. No jaundice, cyanosis or thyromegaly. No jugular venous distension. No limb edema. VITAL SIGNS: Her heart rate was 87, blood pressure was 124/67, temperature was 98.3, respiratory rate was 16, and oxygen saturation was 96%. HEAD, EYES, EARS, NOSE AND THROAT: Showed normocephalic, atraumatic. NECK: Supple. HEART: Showed normal first and second sounds. No gallop or murmur. CHEST: Clear to auscultation. No crepitation or rhonchi. ABDOMEN: Distended, soft, nontender. NEUROLOGIC: She was definitely more awake, alert, responding appropriately. Cranial nerves intact. She moves extremities without difficulty. She ambulates without assistance or assistive devices. Her intake was 760, output was 1100. LABORATORY DATA: As of this morning, her white cell count was 7800, hemoglobin 10.8, hematocrit 33, MCV 84, platelet count of 184,000. Her chemistry showed a serum sodium 143, potassium 3.5, chloride 106, bicarbonate 29, anion gap of 8, BUN 18, creatinine 1, estimated GFR was 56 mL per minute. Her glucose 113, calcium was 8.5. Total bilirubin, AST, ALT, alkaline phosphatase were normal. Total protein 6.6, albumin 3.2. Urinalysis showed the urine was essentially unremarkable. DISCHARGE MEDICATIONS: The patient will be discharged. She was discharged home to continue on cefdinir 300 mg twice a day for 7 more days and azithromycin 250 mg 1 tablet once a day for 5 more days. Should continue albuterol sulfate 1 puff every 6 hours, amlodipine besylate 5 mg once a day, apixaban 5 mg twice a day, aspirin 81 mg once a day, clonidine 0.1 mg daily, ferrous sulfate 325 mg daily, fluoxetine 40 mg daily, furosemide 80 mg daily, gabapentin 900 mg twice a day, levothyroxine sodium 75 mcg once a day, lisinopril 10 mg once a day, morphine sulfate 60 mg twice a day, Protonix 20 mg daily and tramadol 50 mg every 8 hours. FINAL DISCHARGE DIAGNOSES: 1. Community-acquired pneumonia, improved. 2. Chronic obstructive pulmonary disease. 3. Hypertension. 4. Type 2 diabetes mellitus. 5. Hyperlipidemia. 6. Chronic kidney disease. 7. History of cerebrovascular accident. BRUCE BENZ MD DR: JACQUELIN/junie JOB#: [id number] / [id number]
== END 2019-05-10 15:00 | disposition home or self-care (01) | DRG 193 ==
LOC: ER 20:04 → 1 SOUTH 22:30
PROVIDERS: ADMIT Internal Medicine; ATTEND Internal Medicine
DX: J18.9 Pneumonia, unspecified organism (principal); J96.20 Acute and chronic respiratory failure, unspecified whether with hypoxia or hypercapnia; J44.0 Chronic obstructive pulmonary disease with (acute) lower respiratory infection; L02.416 Cutaneous abscess of left lower limb; E11.22 Type 2 diabetes mellitus with diabetic chronic kidney disease; E78.5 Hyperlipidemia, unspecified; F12.90 Cannabis use, unspecified, uncomplicated; I12.9 Hypertensive chronic kidney disease with stage 1 through stage 4 chronic kidney disease, or unspecified chronic kidney disease; N18.9 Chronic kidney disease, unspecified; Z79.01 Long term (current) use of anticoagulants; Z82.49 Family history of ischemic heart disease and other diseases of the circulatory system; Z86.711 Personal history of pulmonary embolism; Z86.73 Personal history of transient ischemic attack (TIA), and cerebral infarction without residual deficits; Z87.891 Personal history of nicotine dependence; Z90.49 Acquired absence of other specified parts of digestive tract; Z90.710 Acquired absence of both cervix and uterus; Z99.81 Dependence on supplemental oxygen; R33.9 Retention of urine, unspecified; Z91.040 Latex allergy status; Z91.048 Other nonmedicinal substance allergy status; Z90.722 Acquired absence of ovaries, bilateral; Z87.81 Personal history of (healed) traumatic fracture
CPT/HCPCS: 36415; 71045; 80048; 80053; 81001; 83880; 84484; 85025; 87086; 87186; 94640; 94760; 96365; 96375; J0456; J0696; J2543; J2930; J7620; 99285-25

== ENCOUNTER → 2019-11-21 | Outpatient (CLI) | payer OTHER ==
[~2019-11-21] MED LIST changes: +AZIT250T PO; +CEFD300C PO; +MORP60TA60 PO; +PANT20TA58 PO; +TRAM50TA PO
--- NOTE | 2019-11-21 13:20 | RAD ---
EXAMINATION: BREAST LEFT, DIGITAL DIAGNOSTIC BILATERAL History: Reason: LEFT BREAST LUMP AT THE 9:00 REGION WHICH IS VERY SMALL IN SIZE Comparison: 05/30/2018, 12/20/2016, 10/08/2015. Technique: Bilateral digital diagnostic mammogram views were obtained. CAD was utilized. 3-D tomosynthesis images were acquired. Findings: Breast Tissue Density B : There are scattered areas of fibroglandular density. There are no dominant masses, suspicious microcalcifications, or architectural distortion. Left breast ultrasound exam was performed at the site of the reported palpable abnormality. No suspicious finding is identified. There is incidentally a 0.3 cm diameter by 0.4 cm x 0.2 cm tall cyst which is well circumscribed. IMPRESSION: No mammographic evidence of malignancy. A small cyst is present but this does not correspond to the site of the reported palpable abnormality. No suspicious imaging findings to account for the reported site of very small palpable abnormality. BI-RADS category 1: Negative. Clinical management is recommended. The images were reviewed with computer aided detection. Patient information is entered into the reminder system with a target due date for the next screening mammogram. Mammography is the most sensitive method for finding small breast cancers, but it does not detect them all and is not a substitute for careful clinical examination. A negative mammogram does not negate a clinically suspicious finding and should not result in delay in biopsying a clinically suspicious abnormality. "Our facility is accredited by the [employer] Mammography Program." Electronically signed by: Buck Almaguer MD (11/21/2019 1:17 PM) [id number]
== END | disposition home or self-care (01) ==
LOC: MAMMO 12:00
PROVIDERS: ATTEND Nurse Practitioner Family
DX: N60.02 Solitary cyst of left breast (principal); I10 Essential (primary) hypertension; E03.9 Hypothyroidism, unspecified; E11.9 Type 2 diabetes mellitus without complications; J43.9 Emphysema, unspecified; Z79.899 Other long term (current) drug therapy
CPT/HCPCS: 76641; 77066

== ENCOUNTER 2020-07-14 02:52 | Inpatient (IN) | payer OTHER ==
[~2020-07-14] VITALS: Ht 162.6 cm; Wt 95.7 kg
[~2020-07-14 02:52] MED LIST changes: +AMLO-186 PO; -AMLO5TAB10 PO; -ASPI-612 PO; +ASPI-889 PO; +LISI10TA16 PO; -LISI10TA2 PO; +MIRT-35 PO; -MIRT30TA PO; -PANT40TA5 PO; +PANT40TA6 PO; -PROM25SU3 PR; +PROM25SU4 PR
--- NOTE | 2020-07-14 03:09 | PHYS DOC ---
Past History Past Medical History: COPD, CVA, Diabetes, Hypertension Additional Past Medical Histor: pulmonary embolism, NEUROPATHY Past Surgical History: Appendectomy, Cholecystectomy, , Hysterectomy Additional Past Surgical Histo: BACK Smoking: Cigarettes, Less than 1pk/day Alcohol Use: None Drug Use: Marijuana Adult General Chief Complaint Chief Complaint: NAUSEA/VOMITING/DIARRHEA HPI HPI Patient is a liters of oxygen normally at home tdi-taym-bvo female, retired with a past medical history of COPD, diabetes and hypertension who presents to the emergency department with shortness of breath. States it really been bad over the last 2 days, with increased dyspnea on exertion, cough and mucus production. [facility] she has had temperatures at home around 100, and loose stools as well. Denies headache, sore throat, runny nose, chest pain, abdominal pain, nausea, vomiting, dysuria, hematuria or blood in the stool. [facility] has been taking all of her medications including breathing treatments as prescribed. [facility] she did some breathing treatments today which did help a little. Denies orthopnea, edema. Denies any recent travel, other illnesses, known ill contacts. [facility] she is actually self quarantined for the most part at home to avoid getting sick. [facility] she uses 3 L of oxygen at home at baseline but over the last few days has had to turn up to 4 5 if she is up walking around. Review of Systems Review of Systems Review of systems otherwise unremarkable except noted in HPI. Allergies Allergies Allergies Coded Allergies Type Severity Reaction Last Updated Verified adhesive Allergy Severe Hives 04/29/18 Yes latex Allergy Severe 04/29/18 Yes Physical Exam Physical Exam Constitutional: Well developed, well nourished, no acute distress, appears tired, and ill. [] HENT: Normocephalic, atraumatic, , oropharynx dry, no oral exudates, nose normal. [] Eyes: conjunctiva normal, no discharge. [] Neck: Normal range of motion, no tenderness Cardiovascular:Heart rate regular rhythm, no murmur [] Lungs & Thorax: Bilateral breath sounds with global rhonchi, more on the right than left and decreased air movement more on the right than left. No wheezing noted Abdomen: soft, no tenderness, no masses, no pulsatile masses. [] Skin: Warm, dry, no erythema, no rash. [] Back: No tenderness, no CVA tenderness. [] Extremities: No tenderness, no cyanosis, no clubbing, ROM intact, no edema. [] Neurologic: Alert and oriented X 3, normal motor function, normal sensory function, no focal deficits noted. [] Psychologic: Affect normal, judgement normal, mood normal. [] Current Patient Data Lab Results Laboratory Tests Test 07/14/20 03:30 07/14/20 03:40 Lactic Acid Level 3.0 mmol/L (0.4-2.0) White Blood Count 11.6 x10^3/uL (4.0-11.0) Red Blood Count 4.75 x10^6/uL (3.50-5.40) Hemoglobin 13.3 g/dL (12.0-15.5) Hematocrit 41.3 % (36.0-47.0) Mean Corpuscular Volume 87 fL (79-100) Mean Corpuscular Hemoglobin 28 pg (25-35) Mean Corpuscular Hemoglobin Concent 32 g/dL (31-37) Red Cell Distribution Width 13.7 % (11.5-14.5) Platelet Count 285 x10^3/uL (140-400) Neutrophils (%) (Auto) 82 % (31-73) Lymphocytes (%) (Auto) 12 % (24-48) Monocytes (%) (Auto) 5 % (0-9) Eosinophils (%) (Auto) 0 % (0-3) Basophils (%) (Auto) 1 % (0-3) Neutrophils # (Auto) 9.5 x10^3uL (1.8-7.7) Lymphocytes # (Auto) 1.4 x10^3/uL (1.0-4.8) Monocytes # (Auto) 0.6 x10^3/uL (0.0-1.1) Eosinophils # (Auto) 0.0 x10^3/uL (0.0-0.7) Basophils # (Auto) 0.1 x10^3/uL (0.0-0.2) Sodium Level 140 mmol/L (136-145) Potassium Level 4.1 mmol/L (3.5-5.1) Chloride Level 103 mmol/L (98-107) Carbon Dioxide Level 28 mmol/L (21-32) Anion Gap 9 (6-14) Blood Urea Nitrogen 16 mg/dL (7-20) Creatinine 1.0 mg/dL (0.6-1.0) Estimated GFR (Cockcroft-Gault) 56.0 BUN/Creatinine Ratio 16 (6-20) Glucose Level 134 mg/dL (70-99) Calcium Level 9.6 mg/dL (8.5-10.1) Magnesium Level 2.2 mg/dL (1.8-2.4) Total Bilirubin 0.3 mg/dL (0.2-1.0) Aspartate Amino Transf (AST/SGOT) 24 U/L (15-37) Alanine Aminotransferase (ALT/SGPT) 28 U/L (14-59) Alkaline Phosphatase 116 U/L (46-116) Troponin I Quantitative < 0.017 ng/mL (0-0.055) OJ-Xci-K-Type Natriuretic Peptide 249 pg/mL (0-124) Total Protein 7.6 g/dL (6.4-8.2) Albumin 3.4 g/dL (3.4-5.0) Albumin/Globulin Ratio 0.8 (1.0-1.7) EKG EKG Rate of 95, QRS of 70, QTc of 468, no STEMI [] Radiology/Procedures Radiology/Procedures []CT chest with contrast PQRS statement: CT scans at this facility use dose reduction including either automated exposure control, iterative reconstructions, and /or weight based radiation dosing via mA and kV modification when appropriate to reduce radiation dose to as low as reasonably achievable. Contrast: 75 mL Omnipaque 300 intravenous contrast. HISTORY: Shortness of breath. Hypoxia. COMPARISON: CT chest May 01, 2018. FINDINGS: Small sliding hiatal hernia gastroesophageal junction. Calcified plaque thoracic aorta. Heart size normal. Esophagus and pulmonary vessels are un remarkable. No adenopathy in the chest. Upper lobe centrilobular pulmonary emphysema. 2 small nodules right upper lobe anterior segment above the minor fissure measuring 3 mm are stable to the study from 2018 considered benign. Mild discoid atelectasis lung bases mild dependent groundglass density likely atelectasis of the upper and lower lobes. IMPRESSION: No acute process. Mild dependent atelectasis of the upper and lower lobes. Electronically signed by: Seng Rodriguez MD (07/14/2020 4:55 AM) [facility] [place] Heart Score HEART Score for Chest Pain: HEART Score for Chest Pain Response (Comments) Value History Slighlty/Non-Suspicious 0 Age >45 - < 65 1 Risk Factors >3 Risk Factors or Hx CAD 2 Troponin < Normal Limit 0 Total 3 Risk Factors: Risk Factors: DM, Current or recent (<one month) smoker, HTN, HLP, family history of CAD, obesity. Risk Scores: Risk Factors: DM, Current or recent (<one month) smoker, HTN, HLP, family history of CAD, obesity. Course & Med Decision Making Course & Med Decision Making Patient is a 64-year-old female who presents with a chief complaint of shortness of breath and loose stools for 2 to 3 days Vital signs notable for tachycardia, hypertension and hypoxia on room air, patient on 3 to 4 L of oxygen in the ED with 98% saturation. Temperature 100.2. Laboratory analysis notable for lactate of 3, mild leukocytosis. Given that patient meets SIRS criteria, with a lactate of 3 and a fever with increased cough, dyspnea on exertion cultures were obtained and patient was started on Levaquin. Discussed findings with patient and recommended admission to the hospital for continued evaluation and treatment of her sepsis/shortness of breath and probable COPD exacerbation. Patient grateful, verbalized understanding and agreed with plan of admission. Levaquin stopped during infusion, as patient stated that it was burning. Started Zosyn instead. [] Dragon Disclaimer Dragon Disclaimer This electronic medical record was generated, in whole or in part, using a voice recognition dictation system. Departure Departure: Impression: Primary Impression: Shortness of breath Additional Impressions: Loose stools Hypoxia Sepsis COPD exacerbation Disposition: ADMITTED INPT THIS HOSP Condition: IMPROVED Referrals: RUPERT PORTILLO NP (PCP) Problem Qualifiers SAMANTHA DIGGS MD Jul 14, 2020 03:09
[2020-07-14] MEDS ORDERED: CONTRAST GIVEN. MC PRN (03:15)
[2020-07-14] MEDS ORDERED: IPRATRPIUM/ALBUTEROL 0.5/2.5MG 3 ML NEBU. NEB ONE ×2 (03:30→05:30)
[2020-07-14] MEDS ORDERED: IV RINGERS SOLUTION,LACTATED 500 ML IV ONE ×2 (03:30→05:45)
[2020-07-14] MEDS ORDERED: IOHEXOL 300 MG/ML 75 ML VIAL. IV ONE (03:30)
[2020-07-14] MEDS ORDERED: ACETAMINOPHEN 500 MG TABLET PO ONE (03:30)
[2020-07-14] MEDS ORDERED: DEXAMETHASONE 4 MG TABLET PO ONE (03:30)
[2020-07-14 04:05] LABS: BASO # 0.1 x10^3/uL (0.0-0.2); BASO % 1 % (0-3); EOS % 0 % (0-3); HEMATOCRIT 41.3 % (36.0-47.0); HEMOGLOBIN 13.3 g/dL (12.0-15.5); LYMPH # 1.4 x10^3/uL (1.0-4.8); LYMPH % 12 % (24-48); MEAN CORPUSCULAR HEMOGLOBIN 28 pg (25-35); MEAN CORPUSCULAR HGB CONC 32 g/dL (31-37); MEAN CORPUSCULAR VOLUME 87 fL (79-100); MONO # 0.6 x10^3/uL (0.0-1.1); MONO % 5 % (0-9); NEUT # 9.5 x10^3uL (1.8-7.7); NEUT % 82 % (31-73); PLATELET COUNT 285 x10^3/uL (140-400); RED BLOOD COUNT 4.75 x10^6/uL (3.50-5.40); RED CELL DISTRIBUTION WIDTH 13.7 % (11.5-14.5); WHITE BLOOD COUNT 11.6 x10^3/uL (4.0-11.0)
[2020-07-14 04:22] LABS: CALCIUM 9.6 mg/dL (8.5-10.1)
[2020-07-14 04:23] LABS: ALBUMIN 3.4 g/dL (3.4-5.0); ALBUMIN/GLOBULIN RATIO 0.8 (1.0-1.7); MAGNESIUM 2.2 mg/dL (1.8-2.4); TOTAL BILIRUBIN 0.3 mg/dL (0.2-1.0); TOTAL PROTEIN 7.6 g/dL (6.4-8.2)
--- NOTE | 2020-07-14 04:23 | EKG ---
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
[2020-07-14 04:26] LABS: POTASSIUM 4.1 mmol/L (3.5-5.1)
--- NOTE | 2020-07-14 05:01 | RAD ---
CT chest with contrast PQRS statement: CT scans at this facility use dose reduction including either automated exposure cont rol, iterative reconstructions, and /or weight based radiation dosing via mA and kV modification when appropriate to reduce radiation dose to as low as reasonably achievable. Contrast: 75 mL Omnipaque 300 intravenous contrast. HISTORY: Shortness of breath. Hypoxia. COMPARISON: CT chest May 01, 2018. FINDINGS: Small sliding hiatal hernia gastroesophageal junction. Calcified plaque thoracic aorta. Hea rt size normal. Esophagus and pulmonary vessels are unremarkable. No adenopathy in the chest. Upper l obe centrilobular pulmonary emphysema. 2 small nodules right upper lobe anterior segment above the mi nor fissure measuring 3 mm are stable to the study from 2018 considered benign. Mild discoid atelecta sis lung bases mild dependent groundglass density likely atelectasis of the upper and lower lobes. IMPRESSION: No acute process. Mild dependent atelectasis of the upper and lower lobes. Electronically signed by: Seng Rodriguez MD (07/14/2020 4:55 AM) [facility]
[2020-07-14] MEDS: guaiFENesin/CODEINE 100mg/10mg 5 ML LIQUID PO PRN (05:11)
[2020-07-14] MEDS: oxyCODONE IR 5 MG TABLET PO PRN (05:12)
[2020-07-14 05:34] LABS: BACTERIA,URINE FEW /HPF (0-FEW); BILIRUBIN,URINE NEG (NEG); CLARITY,URINE CLEAR; COLOR,URINE YELLOW; GLUCOSE,URINE NEG (NEG); NITRITE,URINE NEG (NEG); RBC,URINE RARE /HPF (0-2); SQUAMOUS EPITHELIAL CELL,UR OCC /LPF; UROBILINOGEN,URINE 0.2 mg/dL (0.2 mg/dL)
[2020-07-14] MEDS: PIPERACILLIN/TAZOBACTAM 3.375 GM in IV NORMAL SALINE 50ML 50 ML IV SCH ×2 (06:00→11:58)
[2020-07-14 06:35] VITALS: BP 138/80
--- NOTE | 2020-07-14 06:35 | NUR ---
Pt admitted to [facility] room 120 via [facility] from ER, accompanied by EMS and nursing staff. Pt transferred from gurney to the bed with stand-by assist, steady gait noted. VSS. Pt currently on 3L of oxygen via [place], which pt is on normally at home. Admission assessment completed. Pt reports having increasing SOB, frequent stools with N/V and a temp. Pt UTD on flu vaccine and had 1st dose of Covid vaccine on 06/19/2020 (Moderna). Pt lives alone in apartment but her lives next door in his own apartment. Health history reviewed with pt. Pt unsure of currently med list, requested that we call the [facility], call placed and awaiting fax. SCDs for VTE. Pt oriented to room and reviewed plan of care, verbalized understanding. Valuables were checked and left in room with pt. Pt was given written information regarding hospital policies, unit procedures and contact persons. Call light within reach. Pt up to bathroom for BM, sample sent down. Dr Garcia called for PRN pain and nausea medications, orders received.
[2020-07-14] MEDS ORDERED: ONDANSETRON PF 4 MG/2 ML VIAL. ONE (07:18)
[2020-07-14] MEDS: ONDANSETRON PF 4 MG/2 ML VIAL. IVP PRN ×3 (07:28→17:00)
[2020-07-14] MEDS: MORPHINE SULFATE 4 MG/ML DISP.SYRIN. IV PRN ×3 (07:29→16:16)
[2020-07-14] MEDS: ACETAMINOPHEN 500 MG TABLET PO PRN (09:21)
[2020-07-14 10:56] VITALS: BP 144/65
[2020-07-14] MEDS: IV DEXTROSE 5 %-0.45 % NACL 1,000 ML IV SCH ×2 (13:15→23:45)
[2020-07-14] MEDS ORDERED: SUMAtriptan SUCCINATE 50 MG TABLET PO PRN (13:30)
[2020-07-14] MEDS ORDERED: MORPHINE SULFATE 45 MG PO PRN (13:30)
[2020-07-14] MEDS ORDERED: CYAN100031 PO (13:53)
[2020-07-14] MEDS ORDERED: FOLI0.8C PO (13:53)
[2020-07-14] MEDS ORDERED: MORP60TA25 PO (13:53)
[2020-07-14] MEDS ORDERED: DULO60CA6 PO (13:53)
[2020-07-14] MEDS ORDERED: TIZA4TAB2 PO (13:53)
[2020-07-14] MEDS ORDERED: SUMA50TA3 PO (13:53)
[2020-07-14] MEDS ORDERED: CHOL500021 PO (13:53)
[2020-07-14] MEDS ORDERED: TOPI50TA8 PO (13:53)
[2020-07-14] MEDS ORDERED: MAGN400T5 PO (13:53)
[2020-07-14] MEDS ORDERED: DOCU100C28 PO (13:53)
--- NOTE | 2020-07-14 13:57 | HP ---
ADMIT DATE: 07/14/2020 HISTORY OF PRESENT ILLNESS: The patient is 64-year-old female patient who came to the Emergency Room complaining of recurrent bouts of nausea, vomiting and diarrhea. She is known to have COPD and she is on 3 liters of oxygen at home, who is a retired with a past medical history significant for COPD, diabetes and hypertension, who came to the Emergency Room with shortness of breath. She states she already had been over the past 2 days with increased dyspnea on exertion, cough and mucus production. The sputum is clear. She was febrile with a temperature of about 100 degree Fahrenheit. She has multiple episodes of nausea, vomiting as well as diarrhea. Denied any headache, sore throat, runny nose, chest pain, abdominal pain. She did complain of nausea and vomiting. Denied any hematemesis, melena, or hematochezia. She stated that she has been compliant with all her medications including breathing treatment as prescribed. She did some breathing treatment this morning that did help her shortness of breath. Denied; however, any orthopnea or paroxysmal nocturnal dyspnea. Denied any swelling of the legs. Denied any recent travel, other illnesses, or known ill contact. She has actually self-quarantined for most part at home to avoid getting sick. She states that she used 3 liters of oxygen at baseline and 4-5. She is walking around. She was extensively evaluated in the Emergency Room, had an EKG, which showed that she was in sinus rhythm with a heart rate of 70 beats per minute, no STEMI, had a CT scan of the chest with contrast, which showed that she has small sliding hiatal hernia at the gastroesophageal junction, calcified plaque thoracic aorta. The heart size is normal. The esophagus and pulmonary vessels are unremarkable. No adenopathy in the chest, upper lobe centrilobular pulmonary emphysema. She has 2 small nodules in the right upper lobe, anterior segment. She has mild leukocytosis, white cell count of 11,600. Her chemistry was generally unremarkable except that she has lactic acid that was elevated at 3.6. The patient was admitted with COPD exacerbation, acute gastroenteritis and lactic acidosis. She was started on IV fluid and received treatment with nebulized albuterol and Atrovent as well as dexamethasone and was admitted for further evaluation and treatment. PAST MEDICAL HISTORY: Significant for chronic obstructive pulmonary disease, hypertension, type 2 diabetes mellitus and hyperlipidemia. She is also known to have history of cerebrovascular accident. Chronic kidney disease, urinary retention, left hip abscess from which she grew MRSA and required incision and drainage. She is also known to have morbid obesity and obstructive sleep apnea, for which she is on CPAP. She is known to have hypothyroidism. PAST SURGICAL HISTORY: Significant for back surgery, appendectomy, tonsillectomy, cholecystectomy, total abdominal hysterectomy, bilateral salpingo-oophorectomy; does have left wrist fracture, status post open reduction and internal fixation and left hip abscess, status post incision and drainage. ALLERGIES: SHE IS ALLERGIC TO ADHESIVES AND LATEX. MEDICATIONS: She is currently on following medications: She is on duloxetine 60 mg twice a day. She is on amlodipine besylate 5 mg tablet once a day, folic acid 1 mg once a day, ergocalciferol 25 mcg, she takes 5 tablet by mouth once a day. She is on morphine sulfate 30 mg 1 tablet by mouth 2 times a day as needed. She is also on morphine sulfate 15 mg 1 tablet by mouth twice a day, takes a total of 45 mg twice a day. Topiramate 25 mg, she takes 50 mg at bedtime, lisinopril 5 mg once a day, albuterol inhaler 2 puffs every 6 hours, levothyroxine sodium. She is on cyanocobalamin 1000 mcg once a day, gabapentin 300 mg 3 times a day, Colace 100 mg twice a day, acetaminophen 1000 mg every 6 hours. She is on magnesium oxide 400 mg 1 tablet at bedtime. She is on ondansetron, she takes 4 mg every 6 hours as needed for nausea and vomiting, Flonase 2 sprays to each nostril once a day, ferrous sulfate 325 mg 1 tablet once a day and sumatriptan succinate 100 mg once a day. FAMILY HISTORY: Remarkable for coronary artery disease. SOCIAL HISTORY: She is , but she does not live with her in the same apartment. She continued to smoke at least 6 cigarettes a day according to her, but quit drinking alcohol after her had heart attack. She continued to smoke marijuana 3 times a day. She is now using the sucker that she goes to [place] to bring them for her to improve her appetite. 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 REVIEW OF SYSTEMS: As per history of present illness. PHYSICAL EXAMINATION: GENERAL: On arrival to the Emergency Room, she was somewhat pale, no jaundice or cyanosis. No lymphadenopathy, no thyromegaly. No jugular venous distention. No limb edema. VITAL SIGNS: Her heart rate was 109, blood pressure was 146/70, temperature was 100.2, respiratory rate was 18. Her oxygen saturation was 100% on 3 liters of oxygen by nasal cannula. HEAD, EYES, EARS, NOSE AND THROAT: Showed normocephalic, atraumatic. NECK: Supple. HEART: Showed normal first and second heart sounds. No gallop, rub or murmur. CHEST: Clear to auscultation. No crepitation or rhonchi. ABDOMEN: Distended, soft, nontender. NEUROLOGIC: She was awake, alert, responding appropriately. All cranial nerves intact. EXTREMITIES: She moves extremities without difficulty. She ambulates with a walker. LABORATORY DATA: Showed a white cell count of 11,600, hemoglobin 13.3, hematocrit 41, MCV 87, and platelet count 285,000 with a manual differential showed 82% polymorphs, 12% lymphocytes, 5% monocytes. Her chemistry showed a serum sodium of 140, potassium 4.1, chloride 103, bicarbonate 28, anion gap of 9, BUN 16, creatinine 1, estimated GFR was 56 mL per minute. Her glucose was 134. Her lactic acid was 3. Calcium was 9.6, magnesium was 2.2. Total bilirubin, AST, ALT, alkaline phosphatase were normal. Her beta natriuretic peptide was 249. Total protein was 7.6, albumin was 3.4. Urinalysis showed the urine was yellow, clear with a pH of 8.5, specific gravity of 1.015. The urine was negative for protein, glucose, ketones, blood, nitrite and leukocyte esterase. There are rare rbc's, 1-4 wbc's, and occasional bacteria. ASSESSMENT AND PLAN: In summary, this is a 64-year-old female patient who was admitted with acute gastroenteritis. She also has chronic obstructive pulmonary disease exacerbation. My plan is to continue with IV fluid, to send stool for C. diff as she was treated for urinary tract infection about 2 months ago. We will send also for enteric panel. I will arrange for her to have also a PICC line if possible and a CT scan of the abdomen and pelvis without contrast. We will monitor her lab work closely and adjust her medications accordingly. BRUCE BENZ MD DR: JACQUELIN/junie JOB#: [id number] / [id number]
[2020-07-14] MEDS ORDERED: SUMAtriptan SUCC 6 MG/0.5 ML VIAL SQ ONE (14:15)
[2020-07-14] MEDS: LISINOPRIL 5 MG TABLET. PO SCH (14:30)
[2020-07-14 14:49] VITALS: BP 148/82
[2020-07-14] MEDS: LORazepam 0.5 MG TABLET PO PRN ×2 (16:15→22:59)
[2020-07-14] MEDS: VANCOMYCIN 125 MG/2.5 ML ORAL SOLUTION. PO SCH ×2 (17:18→20:41)
--- NOTE | 2020-07-14 17:50 | RAD ---
CT ABDOMEN+PELVIS WO INDICATION: recurrent bouts of nausea / vomiting . diarrheaa and abdominal pa EXAM: Noncontrast CT of the abdomen and pelvis. Coronal and sagittal reformatted images were perform ed. PQRS compliance statement: One or more of the following individualized dose reduction techniques were utilized for this examinat ion: 1. Automated exposure control 2. Adjustment of the mA and/or kV according to patient size 3. Use of iterative reconstruction technique COMPARISON: 01/15/2019 FINDINGS: No free air, free fluid, or fluid collection. Lower chest: The visualized lower lungs are aerated. No pleural or pericardial effusion. ABDOMEN: Liver: The noncontrast liver is homogeneous in attenuation. Gallbladder and biliary: Cholecystectomy Normal caliber bile ducts. Spleen: Normal spleen. Pancreas: The noncontrast pancreas is homogeneous in attenuation without peripancreatic inflammatory changes. Adrenal glands: Normal adrenal glands. Kidneys and ureters: No opaque urinary calculi. Normal kidneys and ureters. GI tract: Small hiatal hernia. Normal caliber small bowel and colon. Appendectomy. Vascular structures: Normal caliber abdominal aorta. Mild aortoiliac atherosclerotic disease per Lymph nodes: No lymphadenopathy in the abdomen or pelvis. PELVIS: Genitourinary system: Normal bladder. Hysterectomy. SKELETAL STRUCTURES AND SOFT TISSUES: Degenerative changes of the spine. Anterior lumbosacral instrum entation. IMPRESSION: No acute findings. Electronically signed by: Horacio Mtz MD (07/14/2020 5:47 PM) [facility]
[2020-07-14 19:30] VITALS: BP 145/78
[2020-07-14] MEDS: tiZANidine 4 MG TABLET. PO PRN (20:40)
[2020-07-14] MEDS: DULoxetine HCL 60 MG CAPSULE.DR PO SCH (20:40)
[2020-07-14] MEDS: TOPIRAMATE 25 MG TABLET. PO SCH (20:40)
[2020-07-14] MEDS: LACTOBACILLUS RHAMNOSUS GG 1 CAPSULE. PO SCH (20:40)
[2020-07-14] MEDS: DOCUSATE SODIUM 100 MG CAPSULE PO SCH (20:40)
[2020-07-14] MEDS: MAGNESIUM OXIDE 400 MG TABLET PO SCH (20:40)
[2020-07-14] MEDS: GABAPENTIN 300 MG CAPSULE. PO SCH (20:40)
[2020-07-14] MEDS: MORPHINE ER 15 MG TABLET.ER PO PRN (20:42)
[2020-07-15 00:10] VITALS: BP 117/67
[2020-07-15] MEDS: MORPHINE ER 30 MG TABLET.ER PO PRN ×2 (02:51→20:30)
--- NOTE | 2020-07-15 05:42 | NUR ---
IP: patient stool + for c diff, requires contact + precautions.
[2020-07-15] MEDS: LEVOTHYROXINE 75 MCG TABLET PO SCH (06:06)
[2020-07-15 06:34] LABS: HEMATOCRIT 36.7 % (36.0-47.0); HEMOGLOBIN 11.7 g/dL (12.0-15.5); RED BLOOD COUNT 4.2 x10^6/uL (3.50-5.40); RED CELL DISTRIBUTION WIDTH 13.9 % (11.5-14.5); WHITE BLOOD COUNT 11.4 x10^3/uL (4.0-11.0)
[2020-07-15 06:49] LABS: ALBUMIN 3.3 g/dL (3.4-5.0); ALBUMIN/GLOBULIN RATIO 0.9 (1.0-1.7); CALCIUM 8.7 mg/dL (8.5-10.1); POTASSIUM 3.8 mmol/L (3.5-5.1); TOTAL BILIRUBIN 0.3 mg/dL (0.2-1.0); TOTAL PROTEIN 6.9 g/dL (6.4-8.2)
[2020-07-15] MEDS: MORPHINE ER 15 MG TABLET.ER PO PRN ×2 (07:44→20:30)
[2020-07-15] MEDS: IV DEXTROSE 5 %-0.45 % NACL 1,000 ML IV SCH ×2 (09:15→19:15)
[2020-07-15 09:27] VITALS: BP 132/73
[2020-07-15] MEDS: CHOLECALCIFEROL (VITAMIN D3) 1,000 UNIT TABLET PO SCH (09:34)
[2020-07-15] MEDS: LACTOBACILLUS RHAMNOSUS GG 1 CAPSULE. PO SCH ×2 (09:35→20:30)
[2020-07-15] MEDS: FOLIC ACID 1 MG TABLET PO SCH (09:35)
[2020-07-15] MEDS: GABAPENTIN 300 MG CAPSULE. PO SCH ×2 (09:35→20:30)
[2020-07-15] MEDS: DOCUSATE SODIUM 100 MG CAPSULE PO SCH ×2 (09:35→20:30)
[2020-07-15] MEDS: FERROUS SULFATE 325 MG TABLET. PO SCH (09:35)
[2020-07-15] MEDS: LORazepam 0.5 MG TABLET PO PRN ×2 (09:36→22:25)
[2020-07-15] MEDS: VANCOMYCIN 125 MG/2.5 ML ORAL SOLUTION. PO SCH ×4 (09:36→20:31)
[2020-07-15] MEDS: DULoxetine HCL 60 MG CAPSULE.DR PO SCH ×2 (09:36→20:31)
[2020-07-15] MEDS: CYANOCOBALAMIN (VITAMIN B-12) 1,000 MCG TABLET. PO SCH (09:36)
[2020-07-15] MEDS: amLODIPine BESYLATE 5 MG TABLET PO SCH (09:37)
[2020-07-15] MEDS: LISINOPRIL 5 MG TABLET. PO SCH (09:37)
[2020-07-15] MEDS: ENOXAPARIN 40 MG/0.4 ML SYRINGE. SQ SCH (14:05)
[2020-07-15] MEDS: guaiFENesin/CODEINE 100mg/10mg 5 ML LIQUID PO PRN (14:05)
--- NOTE | 2020-07-15 14:16 | PN ---
DATE: 07/15/2020 SUBJECTIVE: The patient is resting, slightly propped up in bed, in no apparent distress. She continues to complain of having loose bowel movement, though she denied any chest pain or shortness of breath. Denied any cough or phlegm. Denied any chills, rigors or fever. PHYSICAL EXAMINATION: GENERAL: When I examined her, she looked somewhat pale, but no jaundice, cyanosis or thyromegaly. No jugular venous distention. No limb edema. VITAL SIGNS: Her heart rate was 78, blood pressure was 132/73, temperature was 98.4, respiratory rate 20, and oxygen saturation was 100% on 3 liters of oxygen. HEAD, EYES, EARS, NOSE AND THROAT: Normocephalic, atraumatic. NECK: Supple. HEART: Showed normal first and second heart sounds. No gallop, rub or murmur. CHEST: Clear to auscultation. No crepitation or rhonchi. ABDOMEN: Distended, soft, nontender. NEUROLOGIC: She looked well, awake, alert, responding appropriately. All cranial nerves intact. She moves extremities without difficulty. Her intake was 1230, no output was reported. LABORATORY DATA: Showed a serum sodium 143, potassium 3.8, chloride 106, bicarbonate 27, anion gap of 10, BUN 12, creatinine 1, estimated GFR was 56 mL per minute. Her glucose 108, calcium was 8.7. Total bilirubin, AST, ALT, alkaline phosphatase were normal. Her C-reactive protein was 2 mg/dL, total protein 6.9, albumin 3.3. Her white cell count was 11,400, hemoglobin 11.7, hematocrit 36.7, MCV 88 and platelet count 280,000. Her urinalysis was essentially unremarkable. Her enteric panel showed that the patient was negative for Campylobacter, E. coli, Shiga toxin, salmonella and Shigella. However, her C. diff toxin by PCR was positive. Her coronavirus by PCR was not detectable. ASSESSMENT: In summary, this is a 64-year-old female patient who came to the Emergency Room with a complaint of recurrent bouts of diarrhea. She did also complain of nausea and vomiting. She did complain also of shortness of breath and cough which is with scanty whitish sputum. However, her CT scan of the chest showed no evidence of pneumonia, did have upper lobe centrilobular pulmonary emphysema, two small nodules in the right upper lobe anterior segment above the minor fissure measuring 3 mm that are stable compared to a study in 2018. CT scan of the abdomen and pelvis showed no acute finding. In summary, this is a 64-year-old female patient who was diagnosed with Clostridium difficile colitis. Plan is to continue with her oral vancomycin as well as Lactobacillus. Continue with all her other medications. I will write an order for Lovenox for DVT prophylaxis and monitor her electrolytes closely. BRUCE BENZ MD DR: JACQUELIN/junie JOB#: [id number] / [id number]
[2020-07-15 15:53] VITALS: BP 108/55
[2020-07-15] MEDS: MORPHINE SULFATE 4 MG/ML DISP.SYRIN. IV PRN (16:08)
[2020-07-15] MEDS: oxyCODONE IR 5 MG TABLET PO PRN (18:10)
[2020-07-15] MEDS: MAGNESIUM OXIDE 400 MG TABLET PO SCH (20:30)
[2020-07-15] MEDS: TOPIRAMATE 25 MG TABLET. PO SCH (20:31)
[2020-07-15 20:32] VITALS: BP 108/51
[2020-07-15] MEDS: tiZANidine 4 MG TABLET. PO PRN (22:25)
[2020-07-15 23:02] VITALS: BP 128/62
[2020-07-16] MEDS: LORazepam 0.5 MG TABLET PO PRN ×3 (05:17→17:32)
[2020-07-16] MEDS: LEVOTHYROXINE 75 MCG TABLET PO SCH (05:18)
[2020-07-16 05:34] VITALS: BP 125/61
--- NOTE | 2020-07-16 05:35 | NUR ---
Shift Note: Pt is a/o x4, VSS, no c/o n/v during the night, pt given her scheduled pain medication in addition to muscle relaxer during the night, pt also requested anti-anxiety medication x2, pt voiding independently, no IV access or IV fluids as pt is eating and drinking appropriately (order received from Dr. Garcia), pt call light appropriate this shift w/o excessive calling.
[2020-07-16] MEDS ORDERED: ONDANSETRON ODT 4 MG TAB.RAPDIS PO PRN (06:15)
[2020-07-16 06:50] LABS: CALCIUM 8.5 mg/dL (8.5-10.1); POTASSIUM 3.8 mmol/L (3.5-5.1)
[2020-07-16] MEDS: LACTOBACILLUS RHAMNOSUS GG 1 CAPSULE. PO SCH ×2 (09:26→20:03)
[2020-07-16] MEDS: CYANOCOBALAMIN (VITAMIN B-12) 1,000 MCG TABLET. PO SCH (09:27)
[2020-07-16] MEDS: GABAPENTIN 300 MG CAPSULE. PO SCH ×2 (09:27→20:03)
[2020-07-16] MEDS: CHOLECALCIFEROL (VITAMIN D3) 1,000 UNIT TABLET PO SCH (09:27)
[2020-07-16] MEDS: MORPHINE ER 15 MG TABLET.ER PO PRN ×2 (09:27→15:20)
[2020-07-16] MEDS: DULoxetine HCL 60 MG CAPSULE.DR PO SCH ×2 (09:27→20:03)
[2020-07-16] MEDS: MORPHINE ER 30 MG TABLET.ER PO PRN ×2 (09:27→15:20)
[2020-07-16] MEDS: DOCUSATE SODIUM 100 MG CAPSULE PO SCH ×2 (09:27→20:04)
[2020-07-16] MEDS: LISINOPRIL 5 MG TABLET. PO SCH (09:28)
[2020-07-16] MEDS: FOLIC ACID 1 MG TABLET PO SCH (09:28)
[2020-07-16] MEDS: amLODIPine BESYLATE 5 MG TABLET PO SCH (09:28)
[2020-07-16] MEDS: FERROUS SULFATE 325 MG TABLET. PO SCH (09:28)
[2020-07-16] MEDS: VANCOMYCIN 125 MG/2.5 ML ORAL SOLUTION. PO SCH ×4 (09:29→20:04)
--- NOTE | 2020-07-16 10:39 | PN ---
DATE: 07/16/2020 ATTENDING PHYSICIAN: Dr. Garcia. SUBJECTIVE: The patient is still weak, having loose stools. Minimal abdominal symptoms, but she is hungry. She requested to advance her diet along with some Ensure. She is very agitated. Ativan has been ordered. OBJECTIVE FINDINGS: VITAL SIGNS: Blood pressure today is 125/61, pulse is 70 and regular, temperature 97.2 degrees Fahrenheit, oxygen saturation 97% on 3 liters of nasal cannula. HEENT: Head is without trauma. Pupils are reactive. Sclerae nonicteric. The oropharynx is clear. NECK: Supple, no bruits. LUNGS: Good breath sounds. CARDIOVASCULAR: Showed regular heart tones. No gallops. ABDOMEN: Soft, good bowel sounds. EXTREMITIES: Without edema. NEUROLOGIC: Focally intact. SKIN: Warm and dry. ASSESSMENT: 1. 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 2. Underlying chronic obstructive pulmonary disease, oxygen dependent. 3. Generalized depression with anxiety. 4. Mild dehydration. PLAN: 1. Continue vancomycin as ordered. 2. Ativan p.r.n. 3. Advance diet. 4. Add Ensure. 5. Tentative discharge plans for tomorrow. LEOLA VAN MD DR: HUNTER/junie JOB#: [id number] / [id number]
[2020-07-16 10:47] VITALS: BP 123/57
[2020-07-16] MEDS: tiZANidine 4 MG TABLET. PO PRN (10:52)
[2020-07-16] MEDS: ENOXAPARIN 40 MG/0.4 ML SYRINGE. SQ SCH (14:52)
[2020-07-16 15:01] VITALS: BP 108/57
[2020-07-16] MEDS: ACETAMINOPHEN 500 MG TABLET PO PRN (20:03)
[2020-07-16] MEDS: MAGNESIUM OXIDE 400 MG TABLET PO SCH (20:04)
[2020-07-16] MEDS: TOPIRAMATE 25 MG TABLET. PO SCH (20:04)
[2020-07-16 20:40] VITALS: BP 133/59
[2020-07-16] MEDS ORDERED: diphenhydrAMINE HCL 25 MG CAPSULE PO PRN (23:15)
[2020-07-17] MEDS: LORazepam 0.5 MG TABLET PO PRN ×2 (00:01→05:36)
[2020-07-17] MEDS: MORPHINE ER 30 MG TABLET.ER PO PRN (00:02)
[2020-07-17] MEDS: MORPHINE ER 15 MG TABLET.ER PO PRN (00:02)
[2020-07-17 00:05] VITALS: BP 127/55
--- NOTE | 2020-07-17 05:15 | NUR ---
Shift Note: Pt is a/o x4, VSS, no c/o n/v during the night, pt given her scheduled pain medication, pt also requested anti-anxiety medication, pt voiding independently, no IV access or IV fluids as pt is eating and drinking appropriately, pt call light appropriate this shift w/o excessive calling, benedryl given for itching, pt anticipating d/c today.
[2020-07-17] MEDS: LEVOTHYROXINE 75 MCG TABLET PO SCH (05:36)
[2020-07-17 05:44] VITALS: BP 129/72
[2020-07-17] MEDS: VANCOMYCIN 125 MG/2.5 ML ORAL SOLUTION. PO SCH (09:00)
[2020-07-17] MEDS: LACTOBACILLUS RHAMNOSUS GG 1 CAPSULE. PO SCH (09:18)
[2020-07-17] MEDS: LISINOPRIL 5 MG TABLET. PO SCH (09:19)
[2020-07-17] MEDS: FOLIC ACID 1 MG TABLET PO SCH (09:19)
[2020-07-17] MEDS: DOCUSATE SODIUM 100 MG CAPSULE PO SCH (09:19)
[2020-07-17] MEDS: DULoxetine HCL 60 MG CAPSULE.DR PO SCH (09:19)
[2020-07-17] MEDS: FERROUS SULFATE 325 MG TABLET. PO SCH (09:19)
[2020-07-17] MEDS: CYANOCOBALAMIN (VITAMIN B-12) 1,000 MCG TABLET. PO SCH (09:19)
[2020-07-17 09:20] VITALS: BP 129/72
[2020-07-17] MEDS: CHOLECALCIFEROL (VITAMIN D3) 1,000 UNIT TABLET PO SCH (09:20)
[2020-07-17] MEDS: amLODIPine BESYLATE 5 MG TABLET PO SCH (09:20)
[2020-07-17] MEDS: GABAPENTIN 300 MG CAPSULE. PO SCH (09:20)
--- NOTE | 2020-07-17 10:26 | DS ---
DATE OF DISCHARGE: 07/17/2020 ATTENDING PHYSICIAN: Dr. Garcia. FINAL DISCHARGE DIAGNOSES: 1. 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 2. Underlying chronic obstructive pulmonary disease, oxygen dependent. 3. Generalized anxiety with depression. 4. Personality disorder. 5. Chronic pain syndrome. 6. Mild dehydration. HISTORY OF PRESENT ILLNESS: This 64-year-old female [facility] patient is well known to me from previous admission here at [facility] and also the [facility]. She has recurrent diarrhea, admitted with a positive Clostridium difficile colitis. She has had recurrent recent antibiotic therapy. Multiple other medical issues including chronic pain syndrome. PHYSICAL EXAMINATION: Please see the dictated note. PERTINENT LABORATORY AND X-RAY STUDIES: C. Diff toxin remained positive on admission. Coronavirus was negative. Electrolytes, creatinine was 1.0 mg percent, potassium 3.8 mEq, sodium normal. Transaminases normal. Hemoglobin 11.7 grams with white count 11,400. COURSE IN THE HOSPITAL: The patient was started her back on q.i.d., vancomycin orally. Continuation of her home meds, diet was advanced and diarrhea subsided. She was doing well. By the fourth hospital day, her diarrhea had subsided. She was having fairly normal formed stools. At this time, because of recurrence, we recommended a longer duration of treatment. Therefore, she is discharged home with 2 weeks of vancomycin 125 p.o. q.i.d., then 2 more weeks of vancomycin 125 b.i.d. and then followup thereafter. In addition, she will continue her albuterol, amlodipine, vitamin D3, vitamin B12, docusate, Cymbalta, ferrous sulfate, folic acid, Lasix, Neurontin, Synthroid, lisinopril, magnesium oxide, morphine sulfate 60 mg twice a day, Imitrex p.r.n., Zanaflex and Topamax dose is unchanged. She will follow up with her PCP at the [facility]. She was discharged from our hospital in stable condition with explicit instructions and followup care. TOTAL DISCHARGE TIME SPENT: 41 minutes. LEOLA VAN MD DR: HUNTER/junie JOB#: [id number] / [id number]
--- NOTE | 2020-07-17 10:43 | NUR ---
DISCHARGE-PATIENT DOES NOT HAVE EXISTING TELE OR PIV. SHE DRESSES HERSELF ET [employer]ONG[employer] FOR DISCHARGE HOME. MEDICATIONS FAXED TO [facility] YESTERDAY FOR PICK-UP TODAY. SHE IS GIVEN 3 PAPER PRESCRIPTIONS FOR USE AT [facility]. CAREY GREENFIELD PT TO FRONT DOOR.
[2020-07-19] MEDS ORDERED: TOPIRAMATE 25 MG TABLET. PO SCH (21:00)
== END 2020-07-17 10:43 | disposition home or self-care (01) | DRG 872 ==
LOC: ER 02:52 → 1 SOUTH 05:33
PROVIDERS: ADMIT Internal Medicine; ATTEND Internal Medicine
DX: A41.9 Sepsis, unspecified organism (principal); A04.71 Enterocolitis due to Clostridium difficile, recurrent; J44.1 Chronic obstructive pulmonary disease with (acute) exacerbation; J98.11 Atelectasis; E03.9 Hypothyroidism, unspecified; E11.22 Type 2 diabetes mellitus with diabetic chronic kidney disease; E78.5 Hyperlipidemia, unspecified; E86.0 Dehydration; F12.90 Cannabis use, unspecified, uncomplicated; F17.210 Nicotine dependence, cigarettes, uncomplicated; F41.1 Generalized anxiety disorder; F60.9 Personality disorder, unspecified; G89.4 Chronic pain syndrome; I12.9 Hypertensive chronic kidney disease with stage 1 through stage 4 chronic kidney disease, or unspecified chronic kidney disease; K44.9 Diaphragmatic hernia without obstruction or gangrene; N18.9 Chronic kidney disease, unspecified; R09.02 Hypoxemia; Z82.49 Family history of ischemic heart disease and other diseases of the circulatory system; Z86.711 Personal history of pulmonary embolism; Z86.73 Personal history of transient ischemic attack (TIA), and cerebral infarction without residual deficits; Z87.440 Personal history of urinary (tract) infections; Z90.49 Acquired absence of other specified parts of digestive tract; Z90.710 Acquired absence of both cervix and uterus; Z99.81 Dependence on supplemental oxygen; E66.01 Morbid (severe) obesity due to excess calories; G47.33 Obstructive sleep apnea (adult) (pediatric); Z88.2 Allergy status to sulfonamides; Z88.8 Allergy status to other drugs, medicaments and biological substances; Z91.040 Latex allergy status; Z68.36 Body mass index [BMI] 36.0-36.9, adult
CPT/HCPCS: 36415; 71260; 74176; 80048; 80053; 81001; 82947; 83605; 83735; 83880; 84484; 85025; 85027; 86140; 87040; 87493; 87505; 93005; 94640; 96361; 96365; 99285; 99406; J1650; J1956; J2270; J2405; J2543; J3030; J7120; J8540; Q0162; Q0163; Q9967; U0003

== ENCOUNTER → 2021-08-10 | Outpatient (CLI) | payer OTHER ==
[~2021-08-10] MED LIST changes: +CHOL500021 PO; +CYAN100031 PO; +DOCU100C28 PO; +DULO60CA7 PO; +FOLI0.8C PO; +MAGN400T48 PO; +MORP60TA25 PO; +TIZA-75 PO; +TOPI50TA8 PO
--- NOTE | 2021-08-10 21:26 | RAD ---
XR LUMBAR SPINE 2-3V, XR THORACIC SPINE 3VIEWS History: Back pain Comparison: CT chest, abdomen and pelvis 07/14/2019 Technique: 3 views of the thoracic and 4 views of the lumbar spine. Findings: No evidence of fracture. No destructive osseous lesion. Normal thoracic spine alignment. Mild multilevel degenerative endplate changes in the thoracic spine. Postsurgical features from anterior fusion and laminectomy at L4-L5. Sacralization of L5 with rudimen tary L5-S1 disc. Mild anterolisthesis of L2 on L3 and mild anterolisthesis L3 on L4. Multilevel lumbar facet hypertrophy. Mild disc space narrowing at L5 3-4. Atherosclerotic calcifications of the aorta. Right upper quadrant cholecystectomy clips. IMPRESSION: 1. No acute osseous abnormality in the thoracic and lumbar spine. 2. Postsurgical features at L4-L5 with multilevel lumbar facet hypertrophy and mild adjacent segment degenerative disc disease of L3-L4. 3. Minimal degenerative changes in the thoracic spine. Electronically signed by: Jose Muller MD (08/10/2021 9:23 PM) [facility]
== END ==
LOC: RAD 14:43
PROVIDERS: ATTEND Family Medicine
DX: G89.29 Other chronic pain (principal); M51.36 Other intervertebral disc degeneration, lumbar region; M47.896 Other spondylosis, lumbar region; M47.812 Spondylosis without myelopathy or radiculopathy, cervical region; M48.061 Spinal stenosis, lumbar region without neurogenic claudication; M43.16 Spondylolisthesis, lumbar region; I70.0 Atherosclerosis of aorta; Z90.49 Acquired absence of other specified parts of digestive tract; Z98.890 Other specified postprocedural states
CPT/HCPCS: 72072; 72100